=== PATIENT | female | born 1970 | race Caucasian/White ===

== ENCOUNTER 2016-04-16 12:47 | Emergency (ER) | payer MEDICARE, MEDICAID ==
--- NOTE | 2016-04-16 14:07 | Emergency Department Record ---
History of Present Illness - General Chief complaint: Flank Pain Stated complaint: L SIDE PAIN Time Seen by Provider: 04/16/16 13:59 Source: Patient Mode of Arrival: Ambulatory Limitations: No limitations - History of Present Illness Initial comments: 46 yo female presents with abdominal pain that is similar to her pancreatitis. She ran out of her chronic pain medication that typically covers her pain. She had a med fill on Mar 15 but ran out given the longer holiday weekend. No fever. She has some chronic left leg pain as well. She had her pain pump removed in December due to infection. She sees Dr Billy. Complaint: Other Onset/Timin -: Month(s) Radiation: Other Severity scale (1-10): 7 Quality: Aching Consistency: Constant Improves with: None Worsens with: None Patient : No Associated Symptoms: Nausea/vomiting - Related Data Home Medications Medication Instructions Recorded Confirmed Last Taken Albuterol Sulfate 2.5 mg IH QID PRN 08/27/13 04/16/16 07/11/14 Hydrocortisone 25 mg PO DAILY 04/12/14 04/16/16 04/16/16 Albuterol Sulfate [Ventolin Hfa] 2 puff IH Q6HR PRN 06/03/14 04/16/16 07/11/14 Duloxetine HCl [Cymbalta] 30 mg PO BID 06/03/14 04/16/16 04/16/16 Metoclopramide HCl [Reglan] 5 mg PO DAILY PRN 06/03/14 04/16/16 07/11/14 Ondansetron [Zofran Odt] 8 mg PO QID 06/03/14 04/16/16 07/11/14 Insulin Glargine,Hum.rec.anlog 25 unit SQ QHS 07/01/14 04/16/16 04/15/16 [Lantus] Insulin Lispro [Humalog] 5 units SQ WMEALS 09/14/15 04/16/16 04/15/16 Morphine Sulfate [Morphine Sulfate 60 mg PO BID 04/16/16 04/16/16 04/15/16 ER] Oxycodone HCl/Acetaminophen 1 tab PO Q6H PRN 04/16/16 04/16/16 04/15/16 [Percocet 10mg/325mg] Pregabalin [Lyrica] 150 mg PO BID 04/16/16 04/16/16 04/16/16 Previous Rx's Medication Instructions Recorded Montelukast Sodium [Singulair] 10 mg PO DAILY #30 tablet 04/13/14 Fluticasone/Salmeterol [Advair 1 each IH BID #1 disk.w.dev 05/14/14 500-50 Diskus] Allergies Allergy/AdvReac Type Severity Reaction Status Date / Time fentanyl [From Duragesic] Allergy Intermediate HEADACHE Verified 04/16/16 13:54 Travel Screening - Travel/Exposure Within Last 30 Days Have you traveled within the last 30 days?: No Review of Systems Constitutional: Denies: Chills, Fever, Malaise, Weakness Eyes: Denies: Eye discharge, Eye pain, Photophobia, Vision change ENT: Denies: Congestion, Throat pain Respiratory: Denies: Cough, Dyspnea, Hemoptysis, Stridor, Wheezes Cardiovascular: Denies: Chest pain, Palpitations, Syncope Endocrine: Denies: Fatigue Gastrointestinal: Reports: Abdominal pain, Nausea, Vomiting. Denies: Diarrhea Genitourinary: Denies: Dysuria Musculoskeletal: Denies: Arthralgia, Back pain, Myalgia Skin: Denies: Bruising, Change in color, Rash Neurological: Denies: Confusion, Headache Psychiatric: Denies: Anxiety Hematological/Lymphatic: Denies: Blood Clots, Easy bleeding, Easy bruising Past Medical History - SOCIAL HISTORY Smoking Status: Former smoker Alcohol Use: None Drug Use: None - RESPIRATORY Hx Respiratory Disorders: Yes Hx Asthma: Yes Hx Pulmonary Embolism: Yes - CARDIOVASCULAR Hx Cardio Disorders: Yes Hx Deep Vein Thrombosis: Yes (hx PE/DVT rt leg) Hx Edema: Yes (right leg swollen "most of the time") - NEURO Hx Neuro Disorders: Yes Hx Headaches: Yes (intermittent ROSS) - GI Hx GI Disorders: Yes Hx Nausea/Vomiting: Yes Hx Pancreatitis: Yes - Hx Genitourinary Disorders: No - ENDOCRINE Hx Endocrine Disorders: Yes Hx Diabetes: Yes - MUSCULOSKELETAL Hx Musculoskeletal Disorders: Yes Hx Arthritis: Yes - PSYCH Hx Psych Problems: Yes Hx Anxiety: Yes Hx Depression: Yes - HEMATOLOGY/ONCOLOGY Hx Hematology/Oncology Disorders: Yes Hx Blood Transfusions: Yes Family Medical History Any Significant Family History?: Yes Hx Cancer: Grandparents Hx Heart Disease: Grandparents Hx HTN: Mother Hx Seizures: Mother Physical Exam - General General Appearance: Alert, Oriented x3, Cooperative, No acute distress Limitations: No limitations - Head Head exam: Normal inspection - Eye Eye exam: Normal appearance, PERRL. negative: Conjunctival injection - ENT ENT exam: Normal exam Ear exam: Normal external inspection Nasal Exam: Normal inspection Mouth exam: Normal external inspection Teeth exam: Normal inspection Throat exam: Normal inspection - Neck Neck exam: Normal inspection, Full ROM. negative: Tenderness - Respiratory Respiratory exam: Normal lung sounds bilaterally. negative: Respiratory distress - Cardiovascular Cardiovascular Exam: Normal rhythm, Normal heart sounds, Tachycardia - GI/Abdominal GI/Abdominal exam: Soft, Tenderness (mild mid left abdomen) - Rectal Rectal exam: Deferred - exam: Deferred - Extremities Extremities exam: Normal inspection, Full ROM, Normal capillary refill. negative: Pedal edema, Tenderness - Back Back exam: Reports: Normal inspection, Full ROM. Denies: Muscle spasm, Rash noted, Tenderness - Neurological Neurological exam: Alert, Normal gait, Oriented X3 - Psychiatric Psychiatric exam: Normal affect, Normal mood - Skin Skin exam: Dry, Intact, Normal color, Warm Course Vital Signs 04/16/16 13:45 Temperature 98.7 F Pulse Rate 117 H Respiratory 20 Rate Blood Pressure 157/90 Pulse Ox 98 - Reevaluation(s) Reevaluation #1: The labs were reviewed No acute changes on the CBC Her glucose is elevated at 324 without changes in HCO3 or AG. DC to follow up with her PCP and pain specialist Lipase is normal 04/16/16 16:02 Medical Decision Making - Lab Data Result diagrams: 04/16/16 14:55 04/16/16 14:55 Disposition Disposition: Discharge Clinical Impression: Hyperglycemia without ketosis Chronic Pain Qualifiers: Chronic pain type: other chronic pain Qualified Code(s): G89.29 - Other chronic pain Disposition: Home, Self-Care Condition: (1) Good Instructions: Flank Pain (ED), Diabetic Hyperglycemia (ED) Additional Instructions: Call your doctor tomorrow to followup your pain medications Monitor your blood sugar 3-4 times daily Forms: Patient Portal Access Time of Disposition: 16:03
[2016-04-16] MEDS: HYDROMORPHONE HCL 1 MG/ML CPJ IM ONE (14:22)
[2016-04-16] MEDS: ONDANSETRON 4 MG ODT TABLET SL ONE (14:23)
[2016-04-16 15:03] LABS: BASO % 0.4 % (0-6); EOS % 2.3 % (0-6); GRAN % 55.1 % (47-80); HEMATOCRIT 44.7 % (35.0-47.0); HEMOGLOBIN 15.9 gm/dl (11.6-16.0); MEAN CELL VOLUME 81.3 fl (81-97); MEAN CORPUSCULAR HEMOGLOBIN 28.9 pg (27-33); MEAN CORPUSCULAR HGB CONC 35.6 g/dl (32-36); MEAN PLATELET VOLUME 10.8 fl (7.4-10.4); MONO % 8.2 % (0-9); PLATELET COUNT 149 K/uL (130-400); RED CELL DISTRIBUTION WIDTH 12.5 % (11.5-14.5); WHITE BLOOD COUNT W/O DIFF 4.9 K/uL (4.2-12.2)
[2016-04-16 15:13] LABS: ALB/GLOB RATIO 1.4 (1.1-1.8); ALBUMIN 4.2 gm/dL (3.5-5.0); ALKALINE PHOSPHATASE 90 U/L (38-126); ALT/SGPT 33 U/L (9-52); ANION GAP 10.8 (7-16); AST/SGOT 16 U/L (14-36); BILIRUBIN,TOTAL 1.04 mg/dL (0.2-1.3); BLOOD UREA NITROGEN 6 mg/dL (7-17); CARBON DIOXIDE 23.2 mmol/L (22-30); CREATININE 0.5 mg/dL (0.52-1.04); EST GLOMERULAR FILTRATION RATE > 60 ml/min; GLUCOSE,RANDOM 324 mg/dL (70-110); LIPASE 105 U/L (23-300); TOTAL PROTEIN 7.2 gm/dL (6.3-8.2)
== END 2016-04-16 16:19 | disposition home or self-care (01) ==
LOC: ER 12:47
DX: E11.65 Type 2 diabetes mellitus with hyperglycemia (principal); Z79.4 Long term (current) use of insulin; G89.29 Other chronic pain; R10.12 Left upper quadrant pain; R11.2 Nausea with vomiting, unspecified; Z86.718 Personal history of other venous thrombosis and embolism
CPT/HCPCS: 99283; 96372; 99284; 83690; 85025; 80053; J1170

== ENCOUNTER 2016-05-14 08:51 | Day surgery (SDC) | payer MEDICARE, MEDICAID ==
[~2016-05-14 08:51] MED LIST: VANCOMYCIN HCL 1,000 MG in 0.9 % SODIUM CHLORIDE 250ML 250 ML IVPB ONE
[2016-05-14 09:15] LABS: BASO % 0.5 % (0-6); EOS % 5.4 % (0-6); GRAN % 57.5 % (47-80); HEMATOCRIT 45.8 % (35.0-47.0); HEMOGLOBIN 15.2 gm/dl (11.6-16.0); LYMPH % 29.6 % (16-45); MEAN CELL VOLUME 85.1 fl (81-97); MEAN CORPUSCULAR HEMOGLOBIN 28.3 pg (27-33); MEAN CORPUSCULAR HGB CONC 33.2 g/dl (32-36); MEAN PLATELET VOLUME 10.6 fl (7.4-10.4); PLATELET COUNT 182 K/uL (130-400); RED BLOOD COUNT 5.38 M/uL (3.80-5.40); RED CELL DISTRIBUTION WIDTH 13.3 % (11.5-14.5); WHITE BLOOD COUNT W/O DIFF 4.3 K/uL (4.2-12.2)
[2016-05-14 09:24] LABS: ANION GAP 15.6 (7-16); BLOOD UREA NITROGEN 8 mg/dL (7-17); CARBON DIOXIDE 26.4 mmol/L (22-30); CREATININE 0.5 mg/dL (0.52-1.04); EST GLOMERULAR FILTRATION RATE > 60 ml/min; GLUCOSE,RANDOM 359 mg/dL (70-110)
[2016-05-14] MEDS ORDERED: HEPARIN SODIUM FLUSH 100 UNITS/ML SYR 5ML IVP ONE (15:03)
[2016-05-14] MEDS ORDERED: BUPIVACAINE 0.25% W/EPI MPF 30ML VIAL IVP ONE (15:03)
[2016-05-14] MEDS ORDERED: HYDROCODONE/APAP 5/325MG TABLET PO ONE (15:03)
[2016-05-14] MEDS ORDERED: ONDANSETRON HCL IV 4 MG/2 ML VIAL IVP ONE (15:10)
[2016-05-14] MEDS ORDERED: MIDAZOLAM HCL 2MG/2ML VIAL IV ONE (15:10)
[2016-05-14] MEDS ORDERED: DEXAMETHASONE 4 MG/ML 1ML VIAL IVP ONE (15:10)
[2016-05-14] MEDS ORDERED: PROPOFOL 10 MG/ML VIAL IV ONE (15:10)
[2016-05-14] MEDS ORDERED: FENTANYL PF 100MCG/2ML VIAL IV ONE (15:10)
[2016-05-14] MEDS ORDERED: LIDOCAINE 2% MDV (20MG/ML) 20ML VIAL IV ONE (15:10)
--- NOTE | 2016-05-16 17:08 | Operative Note ---
DATE OF SURGERY: 05/14/16 PREOPERATIVE DIAGNOSIS: POOR VASCULAR ACCESS. POSTOPERATIVE DIAGNOSIS: POOR VASCULAR ACCESS. OPERATION: REMOVAL AND REPLACEMENT OF [id number]. SURGEON: Geoff Magaña D.O. INDICATION: This patient is a 46-year-old female whose has had very poor vascular access. She has had longstanding indwelling [id number]. I have replaced multiple ones throughout the course of the last decade or so. She comes into the clinic with a malfunctioning [id number]. We did discuss changing this over a wire, risks, benefits, and alternatives. She has had ports placed on both sides and the current one is on her right. PROCEDURE: Therefore after consent was signed and questions answered, she was taken to the Operating Room and placed in the supine position. General anesthesia was administered per the Department of Anesthesia. The patient's arms were tucked to the side. Her breasts were taped down. A roll was placed between her shoulder blades. Adequate time-out was performed. A preoperative antibiotic was given. Her chest was prepped and draped in the usual sterile fashion. The area around the port was then anesthetized with a total of 5 mL of 0.25% Sensorcaine with Epinephrine. At this time, a 2.5 cm incision was made over the port. This was carried down to the capsular port. This was then freed up. A hemostat was then placed on the entry into the fistulous tract and the subclavian vein. The port was then cut and passed off the field. Through this, a guidewire was inserted and the old catheter was removed. At this time, I did measure the catheter compared to the old and fed this over a wire, however, this would not feed past her clavicle. There was extreme resistance to this and in fact when I removed the old catheter there was resistance as well. At this time, I did have to place a dilator over the wire to dilate that tract. The catheter was then fed over the wire without resistance. This was noted to be in adequate position. The wire was removed. At this time, a plastic cath was then placed and the port was assembled. This did aspirate and flush well without difficulty. This was then sutured to her pectoralis fascia. The skin was then closed with 4-0 Vicryl. Dermabond was placed. She was taken to the Recovery Room in satisfactory condition. FINDINGS AT THE TIME OF SURGERY: MALFUNCTIONING [id number] REPLACED ABOVE. FINAL CHEST X-RAY PENDING. Geoff Magaña D.O. Date & Time cc: Dr. Guido Billy JOB NUMBER: [id number] [facility]
--- NOTE | 2016-05-18 07:32 | RADIOLOGY REPORT ---
EXAM: SINGLE AP PORTABLE VIEW OF THE CHEST HISTORY: POOR PLACEMENT. TECHNIQUE: A single AP portable view of the chest was provided along with the comparison study dated 01/27/08. FINDINGS: The cardiac silhouette is magnified. The ling appear unremarkable. Vascular crowding is noted at the lung bases. There is no radiographic evidence of a focal infiltrate or pleural effusion. In the interval there has been the removal of the left subclavian anterior chest wall port catheter. In the interval there has been the placement of a right anterior chest wall subclavian catheter. The distal tip of the catheter is identified in the region of the superior vena cava. No pneumothorax is noted. IMPRESSION: INTERVAL REMOVAL OF LEFT SIDED PORT CATHETER. INTERVAL PLACEMENT OF RIGHT SIDED SUBCLAVIAN CENTRAL VENOUS CATHETER. THE DISTAL TIP OF THE CATHETER IS IDENTIFIED IN THE REGION OF THE SUPERIOR VENA CAVA. NO PNEUMOTHORAX IS NOTED. JOB NUMBER: [id number] [facility]
== END 2016-05-14 13:20 | disposition home or self-care (01) ==
LOC: SUR 08:51
PROVIDERS: ATTEND Surgery
DX: T82.594A Other mechanical complication of infusion catheter, initial encounter (principal); Z79.01 Long term (current) use of anticoagulants; E11.9 Type 2 diabetes mellitus without complications; Z79.4 Long term (current) use of insulin; E27.1 Primary adrenocortical insufficiency
CPT/HCPCS: 36561; 00532; 85025; 80048; 36416; 82948; 71010; 77001; J2405; J3370; J3010; J1642; J7050

== ENCOUNTER 2016-06-07 13:15 | Emergency (ER) | payer MEDICARE, MEDICAID ==
[2016-06-07] MEDS ORDERED: METOCLOPRAMIDE HCL 10 MG/2 ML VIAL IVP ONE (13:37)
[2016-06-07] MEDS ORDERED: DIPHENHYDRAMINE HCL IV 50 MG/ML VIAL IVP ONE (13:37)
--- NOTE | 2016-06-07 13:43 | Emergency Department Record ---
History of Present Illness - General Chief Complaint: Headache Migraine Stated Complaint: ABD PAIN, ROSS Time Seen by Provider: 06/07/16 13:37 Source: Patient Mode of Arrival: Ambulatory Limitations: No limitations - History of Present Illness Initial Comments: 46 yo female presents to ED with a CC of nausea, vomiting, abdominal pain, and headache symptoms. Patient seems most concerned about her abdominal pain symptoms that began 5 days ago, reports a history of chronic pancreatitis. Patient denies fevers, chills, or recent illness. MD Complaint: Headache, Other (abdominal pain) Onset/Timin -: Days(s) Onset Description: Gradual Severity scale (1-10): 7 Quality: Pulsatile Consistency: Constant Improves With: Nothing Worsens With: None Context: Other Associated Symptoms: Photophobia Treatments Prior to Arrival: Prescription analgesic - Related Data Home Medications Medication Instructions Recorded Confirmed Last Taken Albuterol Sulfate 2.5 mg IH QID PRN 08/27/13 06/07/16 06/07/16 Hydrocortisone 25 mg PO DAILY 04/12/14 06/07/16 06/07/16 Albuterol Sulfate [Ventolin Hfa] 2 puff IH Q6HR PRN 06/03/14 06/07/16 06/07/16 Duloxetine HCl [Cymbalta] 30 mg PO BID 06/03/14 06/07/16 06/07/16 Ondansetron [Zofran Odt] 8 mg PO QID 06/03/14 06/07/16 06/07/16 Insulin Glargine,Hum.rec.anlog 25 unit SQ QHS 07/01/14 06/07/16 06/07/16 [Lantus] Insulin Lispro [Humalog] 5 units SQ WMEALS 09/14/15 06/07/16 06/07/16 Morphine Sulfate [Morphine Sulfate 60 mg PO BID 04/16/16 06/07/16 06/07/16 ER] Oxycodone HCl/Acetaminophen 1 tab PO Q6H PRN 04/16/16 06/07/16 06/07/16 [Percocet 10mg/325mg] Pregabalin [Lyrica] 150 mg PO BID 04/16/16 06/07/16 06/07/16 Previous Rx's Medication Instructions Recorded Fluticasone/Salmeterol [Advair 1 each IH BID #1 disk.w.dev 05/14/14 500-50 Diskus] Allergies Allergy/AdvReac Type Severity Reaction Status Date / Time fentanyl [From Duragesic] Allergy Intermediate HEADACHE Verified 06/07/16 13:24 Travel Screening - Travel/Exposure Within Last 30 Days Have you traveled within the last 30 days?: No - Travel/Exposure Within Last Year Have you traveled outside the [place] in the last year?: No - Additonal Travel Details Have you been exposed to anyone with a communicable illness?: No - Travel Symptoms Symptom Screening: None Review of Systems Constitutional: Denies: Chills, Fever, Malaise, Night sweats Eyes: Denies: Eye discharge, Eye pain ENT: Denies: Congestion, Ear pain, Epistaxis Respiratory: Denies: Cough, Dyspnea Cardiovascular: Denies: Chest pain, Dyspnea on exertion, Palpitations Endocrine: Denies: Fatigue, Heat or cold intolerance Gastrointestinal: Reports: Abdominal pain, Nausea, Vomiting Genitourinary: Denies: Dysuria, Frequency, Hematuria Musculoskeletal: Denies: Arthralgia, Back pain, Gout, Joint swelling Skin: Denies: Bruising, Change in color Neurological: Reports: Headache. Denies: Abnormal gait, Confusion, Seizure Psychiatric: Denies: Anxiety Hematological/Lymphatic: Denies: Anemia, Blood Clots Past Medical History - SOCIAL HISTORY Smoking Status: Former smoker Alcohol Use: None Drug Use: None - RESPIRATORY Hx Respiratory Disorders: Yes Hx Asthma: Yes Hx Pulmonary Embolism: Yes Hx Sleep Apnea: Yes - CARDIOVASCULAR Hx Cardio Disorders: Yes Hx Deep Vein Thrombosis: Yes (hx PE/DVT rt leg) Hx Edema: Yes (both legs now(left worse)) Hx Hypertension: Yes (borderline) Hx Irregular Heartbeat: Yes (occas tachycardia (SVT)) Hx Palpitations: Yes Comment:: on Lovenox. Also sees Dr Quintanilla(heart dr in [place]) - NEURO Hx Neuro Disorders: Yes Hx Headaches: Yes (intermittent ROSS) Hx Neuropathy: Yes (feet) - GI Hx GI Disorders: Yes Hx Abdominal Pain: Yes (intermittent due to pancreatitis) Hx Nausea/Vomiting: Yes Hx Pancreatitis: Yes - Hx Genitourinary Disorders: No Comment:: had tubal ligation 2003 - ENDOCRINE Hx Endocrine Disorders: Yes Hx Diabetes: Yes (this AM FBS 302) Comment:: has addisons disease-takes Cortef 2 x day - MUSCULOSKELETAL Hx Musculoskeletal Disorders: Yes Hx Arthritis: Yes Comment:: increased back/hip pain since pain pump removed - PSYCH Hx Psych Problems: Yes Hx Anxiety: Yes Hx Depression: Yes - HEMATOLOGY/ONCOLOGY Hx Hematology/Oncology Disorders: Yes Hx Anemia: Yes Hx Clotting Problems: Yes (on Lovenox) Hx Blood Transfusions: Yes Family Medical History Any Significant Family History?: Yes Hx Cancer: Grandparents Hx Heart Disease: Grandparents Hx HTN: Mother Hx Seizures: Mother Physical Exam - General General Appearance: Alert, Oriented x3, Cooperative, No acute distress Limitations: No limitations - Head Head exam: Atraumatic, Normocephalic, Normal inspection Head exam detail: negative: Abrasion, Contusion, Dodd's sign, General tenderness, Hematoma, Laceration - Eye Eye exam: Normal appearance. negative: Conjunctival injection, Periorbital swelling, Periorbital tenderness, Scleral icterus - ENT Ear exam: negative: Auricular hematoma, Auricular trauma Nasal Exam: negative: Active bleeding, Discharge, Dried blood, Foreign body Mouth exam: negative: Drooling, Laceration, Muffled voice, Tongue elevation - Neck Neck exam: Normal inspection. negative: Meningismus, Tenderness - Respiratory Respiratory exam: Normal lung sounds bilaterally. negative: Rales, Respiratory distress, Rhonchi, Stridor - Cardiovascular Cardiovascular Exam: Regular rate, Normal rhythm, Normal heart sounds - GI/Abdominal GI/Abdominal exam: Soft, Tenderness (mild-moderate TTP LUQ on examination). negative: Rebound - Rectal Rectal exam: Deferred - exam: Deferred - Extremities Extremities exam: Other (numerous, scabbed lesions to the UE's bilaterally, few small areas to the lwoer extremities on examination). negative: Calf tenderness , Pedal edema, Tenderness - Back Back exam: Reports: Normal inspection. Denies: CVA tenderness (R), CVA tenderness (L) - Neurological Neurological exam: Alert, Normal gait, Oriented X3 - Psychiatric Psychiatric exam: Normal affect, Normal mood - Skin Skin exam: Other (lesions as described above) Course Vital Signs 06/07/16 13:27 Temperature 98.6 F Pulse Rate 94 H Respiratory 16 Rate Blood Pressure 160/105 Pulse Ox 96 - Reevaluation(s) Reevaluation #1: 06/07/16 14:24 Labs reviewed, glucose 398, lipase appears normal. Patient reports improvement in her headache symptoms and appears stable for discharge at this time. Medical Decision Making - Lab Data Result diagrams: 06/07/16 14:05 06/07/16 14:05 Disposition Disposition: Discharge Clinical Impression: Chronic abdominal pain Acute headache Qualifiers: Headache type: unspecified Intractability: not intractable Qualified Code(s): R51 - Headache Disposition: Home, Self-Care Condition: (2) Stable Instructions: Acute Headache (ED) Additional Instructions: Return to ED if your symptoms worsen or if you have any concerns. Follow-up with your family doctor in 1-3 days as directed. Forms: Patient Portal Access Time of Disposition: 14:25
[2016-06-07] MEDS ORDERED: 0.9 % SODIUM CHLORIDE 1000ML 1,000 ML IV SCH (13:45)
[2016-06-07 14:09] LABS: BASO % 0.8 % (0-6); EOS % 5.9 % (0-6); HEMATOCRIT 46.5 % (35.0-47.0); HEMOGLOBIN 15.7 gm/dl (11.6-16.0); LYMPH % 37.8 % (16-45); MEAN CELL VOLUME 84.2 fl (81-97); MEAN CORPUSCULAR HEMOGLOBIN 28.4 pg (27-33); MEAN CORPUSCULAR HGB CONC 33.8 g/dl (32-36); MEAN PLATELET VOLUME 10.8 fl (7.4-10.4); MONO % 9.5 % (0-9); PLATELET COUNT 123 K/uL (130-400); RED BLOOD COUNT 5.52 M/uL (3.80-5.40); RED CELL DISTRIBUTION WIDTH 14.7 % (11.5-14.5); WHITE BLOOD COUNT W/O DIFF 3.7 K/uL (4.2-12.2)
[2016-06-07 14:21] LABS: ALB/GLOB RATIO 1.2 (1.1-1.8); ALBUMIN 4.1 gm/dL (3.5-5.0); ALKALINE PHOSPHATASE 90 U/L (38-126); ALT/SGPT 33 U/L (9-52); ANION GAP 13.9 (7-16); AST/SGOT 22 U/L (14-36); BLOOD UREA NITROGEN 11 mg/dL (7-17); CARBON DIOXIDE 25.1 mmol/L (22-30); CREATININE 0.5 mg/dL (0.52-1.04); EST GLOMERULAR FILTRATION RATE > 60 ml/min; GLUCOSE,RANDOM 398 mg/dL (70-110); LIPASE 70 U/L (23-300); TOTAL PROTEIN 7.4 gm/dL (6.3-8.2)
== END 2016-06-07 15:04 | disposition home or self-care (01) ==
LOC: ER 13:15
DX: G89.29 Other chronic pain (principal); R10.12 Left upper quadrant pain; R51 Headache; R11.2 Nausea with vomiting, unspecified; E11.9 Type 2 diabetes mellitus without complications; Z79.4 Long term (current) use of insulin
CPT/HCPCS: 80053; 83690; 85025; 96361; 96374; 96375; 99284; J1200; J2765; J7030

== ENCOUNTER 2016-07-07 00:27 | Emergency (ER) | payer MEDICARE, MEDICAID ==
--- NOTE | 2016-07-07 00:48 | Emergency Department Record ---
History of Present Illness - General Chief complaint: Allergic Reaction Stated complaint: POSSIBLE INFECTION WHERE INFUSA PORT USE TO BE Time Seen by Provider: 07/07/16 00:41 Source: Patient Mode of Arrival: Ambulatory Limitations: No limitations - History of Present Illness Initial Comments: 46 yo female presents to ED with concerns for possible infection at her previous infusaport site. Patient reports that Dr. Magaña removed her infusaport on 06/26/16, reports she was probing her open wound with a q-tip and noted some "green drainage" which is now gone. Patient denies fevers, chills, or recent illness. Onset/Timin -: Days(s) Severity: Mild Treatment Prior to Arrival: None - Related Data Home Medications Medication Instructions Recorded Confirmed Last Taken Albuterol Sulfate 2.5 mg IH QID PRN 08/27/13 07/07/16 06/07/16 Hydrocortisone 25 mg PO DAILY 04/12/14 07/07/16 06/07/16 Albuterol Sulfate [Ventolin Hfa] 2 puff IH Q6HR PRN 06/03/14 07/07/16 06/07/16 Duloxetine HCl [Cymbalta] 30 mg PO BID 06/03/14 07/07/16 06/07/16 Ondansetron [Zofran Odt] 8 mg PO QID 06/03/14 07/07/16 06/07/16 Insulin Glargine,Hum.rec.anlog 25 unit SQ QHS 07/01/14 07/07/16 06/07/16 [Lantus] Insulin Lispro [Humalog] 5 units SQ WMEALS 09/14/15 07/07/16 06/07/16 Morphine Sulfate [Morphine Sulfate 60 mg PO BID 04/16/16 07/07/16 06/07/16 ER] Oxycodone HCl/Acetaminophen 1 tab PO Q6H PRN 04/16/16 07/07/16 06/07/16 [Percocet 10mg/325mg] Pregabalin [Lyrica] 150 mg PO BID 04/16/16 07/07/16 06/07/16 Previous Rx's Medication Instructions Recorded Fluticasone/Salmeterol [Advair 1 each IH BID #1 disk.w.dev 05/14/14 500-50 Diskus] Cephalexin [Keflex] 500 mg PO QID #28 cap 07/07/16 Allergies Allergy/AdvReac Type Severity Reaction Status Date / Time fentanyl [From Duragesic] Allergy Intermediate HEADACHE Verified 06/07/16 13:24 Review of Systems Constitutional: Reports: Malaise. Denies: Chills, Fever, Night sweats Eyes: Denies: Eye discharge, Eye pain ENT: Denies: Congestion, Ear pain, Epistaxis Respiratory: Denies: Cough, Dyspnea Cardiovascular: Denies: Chest pain, Dyspnea on exertion Endocrine: Denies: Fatigue, Heat or cold intolerance Gastrointestinal: Denies: Abdominal pain, Nausea, Vomiting Genitourinary: Denies: Incontinence, Retention Musculoskeletal: Denies: Arthralgia, Back pain, Gout, Joint swelling Skin: Reports: Other (possible wound infection). 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 Also sees Dr Quintanilla(heart dr in [place]) - NEURO Hx Neuro Disorders: Yes Hx Headaches: Yes (intermittent ROSS) Hx Neuropathy: Yes (feet) - GI Hx GI Disorders: Yes Hx Abdominal Pain: Yes (intermittent due to pancreatitis) Hx Nausea/Vomiting: Yes Hx Pancreatitis: Yes - Hx Genitourinary Disorders: No Comment:: had tubal ligation 2003 - ENDOCRINE Hx Endocrine Disorders: Yes Hx Diabetes: Yes (this AM FBS 302) Comment:: has addisons disease-takes Cortef 2 x day - MUSCULOSKELETAL Hx Musculoskeletal Disorders: Yes Hx Arthritis: Yes Comment:: increased back/hip pain since pain pump removed - PSYCH Hx Psych Problems: Yes Hx Anxiety: Yes Hx Depression: Yes - HEMATOLOGY/ONCOLOGY Hx Hematology/Oncology Disorders: Yes Hx Anemia: Yes Hx Clotting Problems: Yes (on Lovenox) Hx Blood Transfusions: Yes Family Medical History Hx Cancer: Grandparents Hx Heart Disease: Grandparents Hx HTN: Mother Hx Seizures: Mother Physical Exam - General General Appearance: Alert, Oriented x3, Cooperative, Anxious Limitations: No limitations - Head Head exam: Atraumatic, Normocephalic, Normal inspection Head exam detail: negative: Abrasion, Contusion, Dodd's sign, General tenderness, Hematoma, Laceration - Eye Eye exam: Normal appearance. negative: Conjunctival injection, Periorbital swelling, Periorbital tenderness, Scleral icterus - ENT Ear exam: negative: Auricular hematoma, Auricular trauma Nasal Exam: negative: Active bleeding, Discharge, Dried blood, Foreign body Mouth exam: negative: Drooling, Laceration, Muffled voice, Tongue elevation - Neck Neck exam: Normal inspection. negative: Meningismus, Tenderness - Respiratory Respiratory exam: Normal lung sounds bilaterally. negative: Rales, Respiratory distress, Rhonchi, Stridor - Cardiovascular Cardiovascular Exam: Normal rhythm, Normal heart sounds, Tachycardia - GI/Abdominal GI/Abdominal exam: Soft. negative: Rebound, Rigid, Tenderness - Rectal Rectal exam: Deferred - exam: Deferred - Extremities Extremities exam: Normal inspection. negative: Pedal edema, Tenderness - Back Back exam: Denies: CVA tenderness (R), CVA tenderness (L) - Neurological Neurological exam: Alert, Normal gait, Oriented X3 - Psychiatric Psychiatric exam: Anxious - Skin Skin exam: Normal color, Other (Patient has a 3.0 cm wound to the right upper chest wall present with surrounding irritation from recent dressing changes, no erythema or signs of infection, scar tissue is present around the wound, no drainage noted.). 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 Patient does have skin irritation in a square formation from recent dressing changes. Patient's pulse is 129 on examination. I discussed performing laboratory studies and administering IVFs to the patient with reassessment, patient declined stating "I hope I don't get septic and ". Patient does not want any further evaluation at this time and is declining further medical tests for further evaluation. Patient does report that her wound nurse will be coming to her home Saturday as well. Patient was given supplies to change her wound. Will discuss the patient's case with Dr. Magaña. Reevaluation #2: 07/07/16 01:05 Case was discussed with Dr. Magaña, will initiate Keflex and have the patient follow-up with her home wound nurse Saturday as scheduled. Reevaluation #3: 07/07/16 01:18 Upon discharge AMA, patient has changed her mind, states "I';m tired of making the decisions, whatever you reccommend". Will initiate IVFs and laboratory studies for further evaluation. Reevaluation #4: 07/07/16 01:51 Labs reviewed, Lactic acid 4.7, Glucose 523. 2nd Liter NS ordered along with 10 unites Insulin IV. Will repeat Lactic upon completion. Reevaluation #5: 07/07/16 03:41 Repeat labs were reviewed, glucose is down to 250, Lactic acid is down to 2.6 from 4.7. Patient appears stable for discharge on Keflex as directed. Medical Decision Making - Lab Data Result diagrams: 07/07/16 01:15 07/07/16 03:05 Disposition Disposition: Discharge Clinical Impression: Encounter for evaluation of wound, Hyperglycemia, Lactic acidosis Disposition: Against Medical Advice Condition: (2) Stable Instructions: Chronic Wound Care (ED) Additional Instructions: Return to ED if your symptoms worsen or if you have any concerns. Follow-up with your home wound nurse Saturday as scheduled, call Dr. Magaña for follow-up appointment next week. Keflex as directed. Prescriptions: Cephalexin [Keflex] 500 mg PO QID #28 cap Forms: Patient Portal Access Time of Disposition: 03:43
[2016-07-07 01:28] LABS: BASO % 0.5 % (0-6); EOS % 2.3 % (0-6); GRAN % 68.1 % (47-80); HEMATOCRIT 45.2 % (35.0-47.0); HEMOGLOBIN 15.7 gm/dl (11.6-16.0); LYMPH % 22.5 % (16-45); MEAN CELL VOLUME 85.4 fl (81-97); MEAN CORPUSCULAR HEMOGLOBIN 29.7 pg (27-33); MEAN CORPUSCULAR HGB CONC 34.7 g/dl (32-36); MEAN PLATELET VOLUME 10.9 fl (7.4-10.4); MONO % 6.6 % (0-9); PLATELET COUNT 198 K/uL (130-400); RED BLOOD COUNT 5.29 M/uL (3.80-5.40); RED CELL DISTRIBUTION WIDTH 13.6 % (11.5-14.5); WHITE BLOOD COUNT W/O DIFF 7.8 K/uL (4.2-12.2)
[2016-07-07] MEDS ORDERED: 0.9 % SODIUM CHLORIDE 1000ML 1,000 ML IV SCH ×2 (01:30→02:00)
[2016-07-07 01:42] LABS: LACTIC ACID 4.7 mmol/L (0.7-2.1)
[2016-07-07 01:47] LABS: ALB/GLOB RATIO 1.3 (1.1-1.8); ALBUMIN 4.1 gm/dL (3.5-5.0); BLOOD UREA NITROGEN 12 mg/dL (7-17); CREATININE 0.7 mg/dL (0.52-1.04); EST GLOMERULAR FILTRATION RATE > 60 ml/min; GLUCOSE,RANDOM 523 mg/dL (70-110); TOTAL PROTEIN 7.3 gm/dL (6.3-8.2)
[2016-07-07 01:48] LABS: ALKALINE PHOSPHATASE 108 U/L (38-126); ALT/SGPT 25 U/L (9-52); AST/SGOT 20 U/L (14-36); C-REACTIVE PROTEIN 1.4 mg/dL (0.0-0.9)
[2016-07-07] MEDS ORDERED: HUMULIN R 100 UNIT/ML VIAL IV ONE (01:51)
[2016-07-07] MEDS ORDERED: HUMULIN R 100 UNIT/ML VIAL SC ONE (01:51)
[2016-07-07] MEDS ORDERED: KETOROLAC 30 MG/ML VIAL IVP ONE (02:08)
[2016-07-07 03:30] LABS: LACTIC ACID 2.6 mmol/L (0.7-2.1)
[2016-07-07 03:32] LABS: BLOOD UREA NITROGEN 11 mg/dL (7-17); CREATININE 0.6 mg/dL (0.52-1.04); EST GLOMERULAR FILTRATION RATE > 60 ml/min; GLUCOSE,RANDOM 250 mg/dL (70-110); TOTAL PROTEIN 6.2 gm/dL (6.3-8.2)
[2016-07-07 03:33] LABS: ALB/GLOB RATIO 1.1 (1.1-1.8); ALBUMIN 3.2 gm/dL (3.5-5.0); ALKALINE PHOSPHATASE 88 U/L (38-126); ALT/SGPT 23 U/L (9-52); AST/SGOT 14 U/L (14-36)
== END 2016-07-07 03:58 | disposition home or self-care (01) ==
LOC: ER 00:27
DX: Z48.00 Encounter for change or removal of nonsurgical wound dressing (principal); E11.65 Type 2 diabetes mellitus with hyperglycemia; Z79.4 Long term (current) use of insulin; E87.2 Acidosis
CPT/HCPCS: 80053; 83605; 85025; 86140; 96374; 96375; 99284; J1885; J7030

== ENCOUNTER 2016-08-02 05:04 | Emergency (ER) | payer MEDICARE, MEDICAID ==
[2016-08-02] MEDS ORDERED: METHYLPREDNISOLONE PF 125MG/VIAL IVP ONE (05:25)
[2016-08-02 05:32] LABS: BASO % 1.4 % (0-6); EOS % 4.3 % (0-6); HEMATOCRIT 45.5 % (35.0-47.0); HEMOGLOBIN 15.4 gm/dl (11.6-16.0); LYMPH % 23.3 % (16-45); MEAN CELL VOLUME 84.9 fl (81-97); MEAN CORPUSCULAR HEMOGLOBIN 28.7 pg (27-33); MEAN CORPUSCULAR HGB CONC 33.8 g/dl (32-36); MEAN PLATELET VOLUME 11.2 fl (7.4-10.4); PLATELET COUNT 195 K/uL (130-400); RED BLOOD COUNT 5.36 M/uL (3.80-5.40); RED CELL DISTRIBUTION WIDTH 12.9 % (11.5-14.5); WHITE BLOOD COUNT W/O DIFF 5.1 K/uL (4.2-12.2)
[2016-08-02 05:43] LABS: ANION GAP 10.9 (7-16); BLOOD UREA NITROGEN 9 mg/dL (7-17); CARBON DIOXIDE 26.1 mmol/L (22-30); CREATININE 0.5 mg/dL (0.52-1.04); EST GLOMERULAR FILTRATION RATE > 60 ml/min
[2016-08-02] MEDS ORDERED: HUMULIN R 100 UNIT/ML VIAL SQ ONE (05:45)
[2016-08-02] MEDS ORDERED: HUMULIN R 100 UNIT/ML VIAL SC ONE (05:45)
[2016-08-02 05:46] LABS: INR 0.87; PARTIAL THROMBOPLASTIN TIME 25.9 SECONDS (24.5-39.1); PROTHROMBIN TIME (PATIENT) 9.8 SECONDS (9.5-12.1)
[2016-08-02 05:48] LABS: D-DIMER 0.66 mg/L FEU (0-0.59)
[2016-08-02 05:50] LABS: ARTERIAL BLD GAS O2 SATURATION 99.8 % (95-98); ARTERIAL BLOOD GAS PCO2 49.1 mmHg (35-48); ARTERIAL BLOOD GAS pH 7.34 (7.35-7.45); CARBOXYHEMOGLOBIN 0.9 % (0-1.5); TOTAL HEMOGLOBIN 15.7 g/dl (11.6-16)
[2016-08-02 05:51] LABS: ALLEN TEST PASS
--- NOTE | 2016-08-02 05:58 | Emergency Department Record ---
History of Present Illness - General Chief Complaint: Shortness of breath Stated Complaint: MANAV Time Seen by Provider: 08/02/16 05:07 Source: Patient, Family Mode of Arrival: Wheelchair Limitations: No limitations - History of Present Illness Initial Comments: pt was dxd with pneumonia yesterday. became much more sob and wheezing this am. Complaint: "Asthma attack", Cough, Shortness of breath Onset/Timin -: Hour(s) Severity: Severe Consistency: Getting worse Improves With: Nothing, Upright position Worsens With: Exertion Known History Of: Asthma, COPD, Diabetes, DVT, Recurrent pneumonia Context: Recent URI Associated Symptoms: Cough Treatments Prior to Arrival: None Treatment Prior to Arrival Comment:: "my insurance wont cover an inhaler" - Related Data Home Oxygen Therapy: No Home Medications Medication Instructions Recorded Confirmed Last Taken Hydrocortisone 10 mg PO ASDIR 04/12/14 08/02/16 06/07/16 Duloxetine HCl [Cymbalta] 60 mg PO BID 06/03/14 08/02/16 06/07/16 Insulin Glargine,Hum.rec.anlog 30 unit SQ QHS 07/01/14 08/02/16 06/07/16 [Lantus] Insulin Lispro [Humalog] 5 units SQ WMEALS 09/14/15 08/02/16 06/07/16 Morphine Sulfate [Morphine Sulfate 60 mg PO BID 04/16/16 08/02/16 06/07/16 ER] Oxycodone HCl/Acetaminophen 1 tab PO Q6H PRN 04/16/16 08/02/16 06/07/16 [Percocet 10mg/325mg] Pregabalin [Lyrica] 150 mg PO BID 04/16/16 08/02/16 06/07/16 Alprazolam [Xanax] 0.5 mg PO BID PRN 08/02/16 08/02/16 Unknown Enoxaparin Sodium [Lovenox] 120 mg SQ BID 08/02/16 08/02/16 Unknown Levofloxacin [Levaquin Tab] 500 mg PO ASDIR 08/02/16 08/02/16 Unknown Allergies Allergy/AdvReac Type Severity Reaction Status Date / Time fentanyl [From Duragesic] Allergy Intermediate HEADACHE Verified 06/07/16 13:24 Travel Screening - Travel/Exposure Within Last 30 Days Have you traveled within the last 30 days?: No - Travel/Exposure Within Last Year Have you traveled outside the [place] in the last year?: No - Additonal Travel Details Have you been exposed to anyone with a communicable illness?: No - Travel Symptoms Symptom Screening: None Review of Systems ROS unobtainable: Other (limited dueto critical state) Reviewed: No additional complaints except as noted below Constitutional: Reports: As per HPI. Denies: Chills, Fever, Malaise, Night sweats, Weakness, Weight change Eyes: Reports: As per HPI. Denies: Eye discharge, Eye pain, Photophobia, Vision change ENT: Reports: As per HPI. Denies: Congestion, Dental pain, Ear pain, Epistaxis , Hearing loss, Throat pain Respiratory: Reports: As per HPI. Denies: Cough, Dyspnea, Hemoptysis, Stridor, Wheezes Cardiovascular: Reports: As per HPI. Denies: Arrhythmia, Chest pain, Dyspnea on exertion, Edema, Murmurs, Orthopnea, Palpitations, Paroxysmal nocturnal dyspnea, Rheumatic Fever, Syncope Endocrine: Reports: As per HPI. Denies: Fatigue, Heat or cold intolerance, Polydipsia, Polyuria Gastrointestinal: Reports: As per HPI. Denies: Abdominal pain, Constipation, Diarrhea, Hematemesis, Hematochezia, Melena, Nausea, Vomiting Genitourinary: Reports: As per HPI. Denies: Abnormal menses, Discharge, Dyspareunia, Dysuria, Frequency, Hematuria, Incontinence, Retention, Urgency Musculoskeletal: Reports: As per HPI. Denies: Arthralgia, Back pain, Gout, Joint swelling, Myalgia, Neck pain Skin: Reports: As per HPI. Denies: Bruising, Change in color, Change in hair/ nails, Lesions, Pruritus, Rash Neurological: Reports: As per HPI. Denies: Abnormal gait, Confusion, Headache, Numbness, Paresthesias, Seizure, Tingling, Tremors, Vertigo, Weakness Psychiatric: Reports: As per HPI. Denies: Anxiety, Auditory hallucinations, Depression, Homicidal thoughts, Suicidal thoughts, Visual hallucinations Hematological/Lymphatic: Reports: As per HPI. Denies: Anemia, Blood Clots, Easy bleeding, Easy bruising, Swollen glands Past Medical History - SOCIAL HISTORY Smoking Status: Former smoker Alcohol Use: None Drug Use: None - RESPIRATORY Hx Respiratory Disorders: Yes Hx Asthma: Yes Hx Pulmonary Embolism: Yes Hx Sleep Apnea: Yes - CARDIOVASCULAR Hx Cardio Disorders: Yes Hx Deep Vein Thrombosis: Yes (hx PE/DVT rt leg) Hx Edema: Yes (both legs now(left worse)) Hx Hypertension: Yes (borderline) Hx Irregular Heartbeat: Yes (occas tachycardia (SVT)) Hx Palpitations: Yes Comment:: on Lovenox. Also sees Dr Quintanilla(heart dr in [place]) - NEURO Hx Neuro Disorders: Yes Hx Headaches: Yes (intermittent ROSS) Hx Neuropathy: Yes (feet) - GI Hx GI Disorders: Yes Hx Abdominal Pain: Yes (intermittent due to pancreatitis) Hx Nausea/Vomiting: Yes Hx Pancreatitis: Yes - Hx Genitourinary Disorders: No Comment:: had tubal ligation 2003 - ENDOCRINE Hx Endocrine Disorders: Yes Hx Diabetes: Yes (this AM FBS 302) Comment:: has addisons disease-takes Cortef 2 x day - MUSCULOSKELETAL Hx Musculoskeletal Disorders: Yes Hx Arthritis: Yes Comment:: increased back/hip pain since pain pump removed - PSYCH Hx Psych Problems: Yes Hx Anxiety: Yes Hx Depression: Yes - HEMATOLOGY/ONCOLOGY Hx Hematology/Oncology Disorders: Yes Hx Anemia: Yes Hx Clotting Problems: Yes (on Lovenox) Hx Blood Transfusions: Yes Family Medical History Any Significant Family History?: Yes Hx Cancer: Grandparents Hx Heart Disease: Grandparents Hx HTN: Mother Hx Seizures: Mother Physical Exam - General General Appearance: Alert, Oriented x3, Cooperative, Severe distress - Head Head exam: Normal inspection - Eye Eye exam: Normal appearance, PERRL, EOMI Pupils: Normal accommodation - ENT ENT exam: Normal exam, Mucous membranes dry, Normal external ear exam, Normal orophraynx Ear exam: Normal external inspection. negative: External canal tenderness Nasal Exam: Normal inspection. negative: Discharge, Sinus tenderness Mouth exam: Normal external inspection, Tongue normal Teeth exam: Normal inspection. negative: Dental caries Throat exam: Normal inspection. negative: Tonsillar erythema, Tonsillar exudate - Neck Neck exam: Normal inspection, Full ROM. negative: Tenderness - Respiratory Respiratory exam: Accessory muscle use, Decreased breath sounds, Respiratory distress, Wheezes - Cardiovascular Cardiovascular Exam: Normal rhythm, Normal heart sounds, Tachycardia - GI/Abdominal GI/Abdominal exam: Soft, Normal bowel sounds. negative: Tenderness - Rectal Rectal exam: Deferred - exam: Deferred - Extremities Extremities exam: Normal inspection, Full ROM, Normal capillary refill. negative: Tenderness - Back Back exam: Reports: Normal inspection, Full ROM. 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 ] Respiratory 52 H 52 H 40 H Rate Blood Pressure 143/118 Blood Pressure [Left Arm] Pulse Ox 98 93 L 93 L 08/02/16 08/02/16 08/02/16 05:30 05:34 05:38 Temperature Pulse Rate Pulse Rate [ 140 H 137 H 136 H Maintenance Helper Utility Engineer ] Respiratory 32 H 45 H 39 H Rate Blood Pressure Blood Pressure 129/115 97/77 [Left Arm] Pulse Ox 96 97 98 - Reevaluation(s) Reevaluation #1: 08/02/16 06:28 d/w [facility] Medical Decision Making - Lab Data Result diagrams: 08/02/16 05:10 08/02/16 05:10 Lab Results 08/02/16 08/02/16 08/02/16 Range/Units 05:10 05:10 05:10 WBC 5.1 (4.2-12.2) K/uL RBC 5.36 (3.80-5.40) M/uL Hgb 15.4 (11.6-16.0) gm/dl Hct 45.5 (35.0-47.0) % MCV 84.9 (81-97) fl MCH 28.7 (27-33) pg MCHC 33.8 (32-36) g/dl RDW 12.9 (11.5-14.5) % Plt Count 195 (130-400) K/uL MPV 11.2 H (7.4-10.4) fl Gran % 58.0 (47-80) % Lymphocytes % 23.3 (16-45) % Monocytes % 13.0 H (0-9) % Eosinophils % 4.3 (0-6) % Basophils % 1.4 (0-6) % PT 9.8 (9.5-12.1) SECONDS INR 0.87 APTT 25.90 (24.5-39.1) SECONDS D-Dimer 0.66 H (0-0.59) mg/L FEU Sodium 129 L (136-145) mmol/L Potassium 4.5 (3.5-5.1) mmol/L Chloride 92 L (98-107) mmol/L Carbon Dioxide 26.1 (22-30) mmol/L Anion Gap 10.9 (7-16) BUN 9 (7-17) mg/dL Creatinine 0.5 L (0.52-1.04) mg/dL Estimated GFR > 60 ml/min Random Glucose 604 H* (70-110) mg/dL Calcium 8.4 L (8.5-10.1) mg/dL 08/02/16 Range/Units 05:28 WBC (4.2-12.2) K/uL RBC (3.80-5.40) M/uL Hgb (11.6-16.0) gm/dl Hct (35.0-47.0) % MCV (81-97) fl MCH (27-33) pg MCHC (32-36) g/dl RDW (11.5-14.5) % Plt Count (130-400) K/uL MPV (7.4-10.4) fl Gran % (47-80) % Lymphocytes % (16-45) % Monocytes % (0-9) % Eosinophils % (0-6) % Basophils % (0-6) % PT Cancelled (9.5-12.1) SECONDS INR Cancelled APTT Cancelled (24.5-39.1) SECONDS D-Dimer (0-0.59) mg/L FEU Sodium (136-145) mmol/L Potassium (3.5-5.1) mmol/L Chloride (98-107) mmol/L Carbon Dioxide (22-30) mmol/L Anion Gap (7-16) BUN (7-17) mg/dL Creatinine (0.52-1.04) mg/dL Estimated GFR ml/min Random Glucose (70-110) mg/dL Calcium (8.5-10.1) mg/dL Critical Care Time Critical Care Time: Yes Total Critical Care Time: 90 Disposition Disposition: Transfer Clinical Impression: Hyperglycemia due to type 1 diabetes mellitus Respiratory failure Qualifiers: Chronicity: acute Respiratory failure complication: hypoxia Qualified Code(s): J96.01 - Acute respiratory failure with hypoxia Asthma exacerbation Qualifiers: Asthma severity: severe persistent Qualified Code(s): J45.51 - Severe persistent asthma with (acute) exacerbation Disposition: Acute Care Hospital Transfer Transfer To: [facility] Reason For Transfer: resp failure Accepting Physician: dr lofton Time Discussed w/Accepting Physician: 06:26 Forms: Patient Portal Access
[2016-08-02 05:59] LABS: GLUCOSE,RANDOM 604 mg/dL (70-110)
[2016-08-02 06:00] LABS: ACETONE,SERUM NEGATIVE (NEGATIVE)
[2016-08-02 06:03] LABS: CREATINE PHOSPHOKINASE 34 U/L (30-135)
[2016-08-02 06:17] LABS: CKMB < 0.2 ug/L (0-6); TROPONIN I < 0.012 ng/mL (0.00-0.034)
[2016-08-02] MEDS ORDERED: IPRATROPIUM/ALBUTEROL (0.5MG/3MG) NEB INH ONE ×2 (06:37→06:39)
[2016-08-02] MEDS ORDERED: ALBUTEROL SULFATE 0.5% 5 MG/ML BTL 20ML INH SCH (06:45)
== END 2016-08-02 07:05 | disposition short-term general hospital (02) ==
LOC: ER 05:04
DX: J96.01 Acute respiratory failure with hypoxia (principal); J45.51 Severe persistent asthma with (acute) exacerbation; E10.65 Type 1 diabetes mellitus with hyperglycemia; Z79.4 Long term (current) use of insulin; Z87.891 Personal history of nicotine dependence; Z86.718 Personal history of other venous thrombosis and embolism
CPT/HCPCS: 99291 ×2; 96374; 96372; 82550; 85025; 85730; 85610; 82375; 82553; 84484; 80048; 36416; 82009; 82948; 82803; 85379; 83880; 71010; 94640 ×2; 36600; 94660; 94644; J1815; J2930

== ENCOUNTER 2016-08-15 02:23 | Emergency (ER) | payer MEDICARE, MEDICAID ==
[2016-08-15] MEDS: IPRATROPIUM/ALBUTEROL (0.5MG/3MG) NEB INH ONE (02:25)
--- NOTE | 2016-08-15 02:38 | Emergency Department Record ---
History of Present Illness - General Chief Complaint: Shortness of breath Stated Complaint: MANAV Time Seen by Provider: 08/15/16 02:27 Source: Patient, Family Mode of Arrival: Ambulatory Limitations: No limitations - History of Present Illness Initial Comments: 46 yo female presents with shortness of breath that has progressed tonight. She has a history of COPD and asthma. She was recently seen in the [facility] ED and transferred to [facility] for acute respiratory distress. She states she was diagnosed with asthma and pneumonia. She has finished her antibiotics and tapered her steroids. She has a mildly productive cough. She has pain in the chest with cough and breathing. She is on Lovenox BID. She had a PE is 1999. She is not a smoker. No history of coronary stents. She is not on any home oxygen. PCP is Dr Billy She was admitted to [facility] on 08/02/16 with a diagnosis of asthma exacerbation and was discharged on 08/06/16. She was transferred initially to the ICU and quickly improved for transfer to the floor at [facility] without complication. She was discharged on Prednisone and Doxycycline for CAP. PMHx Linwood's, Anxiety, Asthma, Depression, DM, DVT 1999, PE 1999, HTN, MRSA 2011, Pancreatitis, former 10 year smoker 2PPD quit 1999 Complaint: Cough, Shortness of breath -: Days(s) (1) Severity: Moderate Consistency: Constant Improves With: Nothing Worsens With: Coughing Known History Of: Asthma, COPD Context: Recent illness Associated Symptoms: Chest pain, Cough, Sputum production Treatments Prior to Arrival: Bronchodilator, Other (steroids) - Related Data Home Medications Medication Instructions Recorded Confirmed Last Taken Hydrocortisone 10 mg PO ASDIR 04/12/14 08/02/16 06/07/16 Duloxetine HCl [Cymbalta] 60 mg PO BID 06/03/14 08/02/16 06/07/16 Insulin Glargine,Hum.rec.anlog 30 unit SQ QHS 07/01/14 08/02/16 06/07/16 [Lantus] Insulin Lispro [Humalog] 5 units SQ WMEALS 09/14/15 08/02/16 06/07/16 Morphine Sulfate [Morphine Sulfate 60 mg PO BID 04/16/16 08/02/16 06/07/16 ER] Oxycodone HCl/Acetaminophen 1 tab PO Q6H PRN 04/16/16 08/02/16 06/07/16 [Percocet 10mg/325mg] Pregabalin [Lyrica] 150 mg PO BID 04/16/16 08/02/16 06/07/16 Alprazolam [Xanax] 0.5 mg PO BID PRN 08/02/16 08/02/16 Unknown Enoxaparin Sodium [Lovenox] 120 mg SQ BID 08/02/16 08/02/16 Unknown Levofloxacin [Levaquin Tab] 500 mg PO ASDIR 08/02/16 08/02/16 Unknown Allergies Allergy/AdvReac Type Severity Reaction Status Date / Time fentanyl [From Duragesic] Allergy Intermediate HEADACHE Verified 06/07/16 13:24 Review of Systems Constitutional: Reports: Malaise, Weakness. Denies: Chills Eyes: Denies: Eye discharge, Eye pain, Photophobia ENT: Reports: Congestion Respiratory: Reports: Cough, Dyspnea, Wheezes Cardiovascular: Reports: Chest pain, Palpitations. Denies: Syncope Endocrine: Reports: Fatigue Gastrointestinal: Denies: Abdominal pain, Diarrhea, Nausea, Vomiting Genitourinary: Denies: Dysuria, Hematuria, Urgency Musculoskeletal: Denies: Arthralgia, Back pain, Joint swelling, Myalgia Skin: Denies: Bruising, Change in color, Rash Neurological: Denies: Headache, Numbness, Weakness Psychiatric: Denies: Anxiety Hematological/Lymphatic: Denies: Blood Clots, Easy bleeding, Easy bruising, Swollen glands Past Medical History - SOCIAL HISTORY Smoking Status: Former smoker Drug Use: None - RESPIRATORY Hx Respiratory Disorders: Yes Hx Asthma: Yes Hx Pulmonary Embolism: Yes Hx Sleep Apnea: Yes - CARDIOVASCULAR Hx Cardio Disorders: Yes Hx Deep Vein Thrombosis: Yes (hx PE/DVT rt leg) Hx Edema: Yes (both legs now(left worse)) Hx Hypertension: Yes (borderline) Hx Irregular Heartbeat: Yes (occas tachycardia (SVT)) Hx Palpitations: Yes Comment:: on Lovenox. Also sees Dr Quintanilla(heart dr in [place]) - NEURO Hx Neuro Disorders: Yes Hx Headaches: Yes (intermittent ROSS) Hx Neuropathy: Yes (feet) - GI Hx GI Disorders: Yes Hx Abdominal Pain: Yes (intermittent due to pancreatitis) Hx Nausea/Vomiting: Yes Hx Pancreatitis: Yes - Hx Genitourinary Disorders: No Comment:: had tubal ligation 2003 - ENDOCRINE Hx Endocrine Disorders: Yes Hx Diabetes: Yes (this AM FBS 302) Comment:: has addisons disease-takes Cortef 2 x day - MUSCULOSKELETAL Hx Musculoskeletal Disorders: Yes Hx Arthritis: Yes Comment:: increased back/hip pain since pain pump removed - PSYCH Hx Psych Problems: Yes Hx Anxiety: Yes Hx Depression: Yes - HEMATOLOGY/ONCOLOGY Hx Hematology/Oncology Disorders: Yes Hx Anemia: Yes Hx Clotting Problems: Yes (on Lovenox) Hx Blood Transfusions: Yes Family Medical History Hx Cancer: Grandparents Hx Heart Disease: Grandparents Hx HTN: Mother Hx Seizures: Mother Physical Exam - General General Appearance: Alert, Oriented x3, Cooperative, Mild distress, Anxious Limitations: No limitations - Head Head exam: Normal inspection - Eye Eye exam: Normal appearance, PERRL. negative: Conjunctival injection, Periorbital swelling - ENT ENT exam: Normal exam, Mucous membranes moist Ear exam: Normal external inspection Nasal Exam: Normal inspection Mouth exam: Normal external inspection Teeth exam: Normal inspection Throat exam: Normal inspection - Neck Neck exam: Normal inspection, Full ROM. negative: Tenderness - Respiratory Respiratory exam: Accessory muscle use, Decreased breath sounds, Prolonged expiratory, Rhonchi, Wheezes. negative: Respiratory distress (moderate work of breathing) - Cardiovascular Cardiovascular Exam: Tachycardia Peripheral Pulses: 2+: Radial (R), Radial (L) - GI/Abdominal GI/Abdominal exam: Soft - Rectal Rectal exam: Deferred - exam: Deferred - Extremities Extremities exam: Pedal edema - Back Back exam: Reports: Normal inspection, Full ROM. Denies: Muscle spasm, Rash noted, Tenderness - Neurological Neurological exam: Alert, Normal gait, Oriented X3. negative: Altered - Psychiatric Psychiatric exam: Anxious - Skin Skin exam: Dry, Normal color, Warm. negative: Erythema, Intact (scattered scabs on arms) Course - Reevaluation(s) Reevaluation #1: EKG 02:30 sinus tachycardia at 136, intervals Qtc 488, axis left, ST no acute changes, poor R wave progression. 08/15/16 02:41 Reevaluation #2: After the duoneb and albuterol treatment the patient is improved but still wheezing, tachycardia improved to 128, oxygen 92-93 on 2 LNC with some decreased work of breathing. She is alert and not confused. Lab called glucose is 619. 08/15/16 02:58 CXR reviewed. Limited due to body habitus, no significant change from prior. 08/15/16 03:08 08/15/16 03:10 Reevaluation #3: Troponin and BNP normal at 0.012 and 29 respectively. Given the intensity of treatment and complexity of medical history I recommend step down unit for admission with a facility with pulmonary medicine Given the recent DC from [facility] I will call [facility] to make arrangements. 08/15/16 03:19 Reevaluation #4: ABG reviewed pH 7.32 with PCO2 of 48 and PO2 of 79 with 96% saturation 08/15/16 03:27 Awaiting [facility] attending call back. Third albuterol treatment provided. Slowly improving but remains wheezy, tachycardic, with increased RR but does not appeared to be fatiguing. 08/15/16 03:35 Reevaluation #5: I SAILAJA Meredith and Dr Sharp of [facility] We discussed the benefit of transfer to [facility] with Pulmonary consultation, complexity of the patient medications, need for more intensive treatment that the patient floor at [facility] will offer. The patient is in agreement with transfer as well. The patient has prior hx of MRSA in 2011 so bed will not be available until mid morning likely Dr Meredith recommends ED to ED transfer. I SW Dr Morley of the ED and she accepts the patient for transfer ED to ED. 08/15/16 03:50 The patient's work of breathing continues to improve but still tachycardic and tachypneic with oxygen saturations remaining 92-94 on 2-3 LNC. She is stable for transfer. 08/15/16 03:55 08/15/16 04:02 08/15/16 04:07 08/15/16 04:09 Medical Decision Making - Lab Data Result diagrams: 08/15/16 02:50 08/15/16 02:50 Disposition Disposition: Transfer Clinical Impression: COPD (chronic obstructive pulmonary disease) with chronic bronchitis, Hyperglycemia, Hyponatremia Asthma exacerbation Qualifiers: Asthma severity: severe persistent Qualified Code(s): J45.51 - Severe persistent asthma with (acute) exacerbation Disposition: Acute Care Hospital Transfer Transfer To: [facility] Reason For Transfer: Respiratory Distress,Asthma exacerbation, Accepting Physician: Peyman Time Discussed w/Accepting Physician: 03:49 Condition: (3) Guarded Forms: Patient Portal Access Time of Disposition: :50
[2016-08-15] MEDS: ALBUTEROL SULFATE (0.083%) 2.5 MG/3 ML NEB INH ONE ×2 (02:40→03:25)
[2016-08-15] MEDS: METHYLPREDNISOLONE PF 125MG/VIAL IVP ONE (02:50)
[2016-08-15 02:55] LABS: BASO % 0.6 % (0-6); EOS % 3.4 % (0-6); GRAN % 59.1 % (47-80); HEMATOCRIT 46.1 % (35.0-47.0); HEMOGLOBIN 16.1 gm/dl (11.6-16.0); LYMPH % 31.5 % (16-45); MEAN CELL VOLUME 85.4 fl (81-97); MEAN CORPUSCULAR HEMOGLOBIN 29.8 pg (27-33); MEAN CORPUSCULAR HGB CONC 34.9 g/dl (32-36); MEAN PLATELET VOLUME 10.7 fl (7.4-10.4); MONO % 5.4 % (0-9); PLATELET COUNT 229 K/uL (130-400); RED CELL DISTRIBUTION WIDTH 12.7 % (11.5-14.5)
[2016-08-15 03:04] LABS: INR 0.9; PARTIAL THROMBOPLASTIN TIME 21.8 SECONDS (24.5-39.1); PROTHROMBIN TIME (PATIENT) 10.2 SECONDS (9.5-12.1)
[2016-08-15 03:05] LABS: ALB/GLOB RATIO 1.2 (1.1-1.8); ALBUMIN 4.1 gm/dL (3.5-5.0); ALKALINE PHOSPHATASE 150 U/L (38-126); ALT/SGPT 43 U/L (9-52); ANION GAP 12.5 (7-16); AST/SGOT 39 U/L (14-36); BILIRUBIN,TOTAL 0.76 mg/dL (0.2-1.3); BLOOD UREA NITROGEN 16 mg/dL (7-17); CARBON DIOXIDE 22.5 mmol/L (22-30); CREATINE PHOSPHOKINASE 54 U/L (30-135); CREATININE 0.7 mg/dL (0.52-1.04); EST GLOMERULAR FILTRATION RATE > 60 ml/min; TOTAL PROTEIN 7.4 gm/dL (6.3-8.2)
[2016-08-15 03:06] LABS: GLUCOSE,RANDOM 619 mg/dL (70-110)
[2016-08-15 03:18] LABS: CKMB 0.4 ug/L (0-6); TROPONIN I < 0.012 ng/mL (0.00-0.034)
[2016-08-15] MEDS: HUMULIN R 100 UNIT/ML VIAL SQ ONE (03:23)
[2016-08-15 03:24] LABS: ARTERIAL BLD GAS O2 SATURATION 96.1 % (95-98); ARTERIAL BLOOD GAS BASE EXCESS -2.4 mmol/L (-2 - 3); ARTERIAL BLOOD GAS HCO3 23.7 mmol/L (18-23); ARTERIAL BLOOD GAS pH 7.32 (7.35-7.45); CARBOXYHEMOGLOBIN 1.3 % (0-1.5); METHEMOGLOBIN 0.5 % (0.0-1.5); O2 HEMOGLOBIN 94.4 % vol (94-99); TOTAL HEMOGLOBIN 15.1 g/dl (11.6-16)
[2016-08-15] MEDS: ACETAMINOPHEN 1,000 MG in SODIUM CHLORIDE 1 BAG IVPB ONE (03:34)
== END 2016-08-15 04:33 | disposition short-term general hospital (02) ==
LOC: ER 02:23
DX: J44.1 Chronic obstructive pulmonary disease with (acute) exacerbation (principal); J45.51 Severe persistent asthma with (acute) exacerbation; E87.1 Hypo-osmolality and hyponatremia; I10 Essential (primary) hypertension; E11.65 Type 2 diabetes mellitus with hyperglycemia; Z79.4 Long term (current) use of insulin; Z87.891 Personal history of nicotine dependence; Z86.718 Personal history of other venous thrombosis and embolism
CPT/HCPCS: 36416; 36600; 71010; 80053; 82375; 82550; 82553; 82803; 82948; 83735; 83880; 84484; 85025; 85610; 85730; 93005; 93010; 94640; 96365; 96372; 96375; 99285; J2930; J7613

== ENCOUNTER 2016-11-30 14:34 | Emergency (ER) | payer MEDICARE, MEDICAID ==
--- NOTE | 2016-11-30 17:51 | Emergency Department Record ---
History of Present Illness - General Chief Complaint: Hypertension Stated Complaint: HYPERTENTON AND SORES UNDER ARM Time Seen by Provider: 11/30/16 16:18 Mode of Arrival: Ambulatory - History of Present Illness Initial Comments: left axilla pain and BP was slightly high. [facility] at [facility] ED 2 weeks ago and the left axillae was lanced and that feel better. visting nurse was worried about her BP and slightly confused which has cleared. -: Unknown Timing: Unsure Description: Difficulty walking Associated Symptoms: Fever/chills, Other - Nicole Coma Scale Eye Response: (4) Open spontaneously Motor Response: (6) Obeys commands Verbal Response: (5) Oriented [place] Total: 15 - Related Data Home Medications Medication Instructions Recorded Confirmed Last Taken Hydrocortisone 10 mg PO ASDIR 04/12/14 11/30/16 11/30/16 Duloxetine HCl [Cymbalta] 60 mg PO BID 06/03/14 11/30/16 11/30/16 Insulin Glargine,Hum.rec.anlog 40 unit SQ BID 07/01/14 11/30/16 11/30/16 [Lantus] Insulin Lispro [Humalog] 1 units SQ WMEALS 09/14/15 11/30/16 06/07/16 Morphine Sulfate [Morphine Sulfate 60 mg PO BID 04/16/16 11/30/16 11/30/16 ER] Oxycodone HCl/Acetaminophen 1 tab PO Q6H PRN 04/16/16 11/30/16 11/30/16 [Percocet 10mg/325mg] Pregabalin [Lyrica] 150 mg PO BID 04/16/16 11/30/16 11/30/16 Enoxaparin Sodium [Lovenox] 150 mg SQ BID 08/02/16 11/30/16 11/30/16 Diazepam [Valium] 5 mg PO Q8H 11/30/16 11/30/16 Unknown Fluticasone/Salmeterol [Advair 1 each IH BID 11/30/16 11/30/16 Unknown 500-50 Diskus] Ipratropium/Albuterol [Duoneb] 3 ml INH ASDIR 11/30/16 11/30/16 Unknown Lamotrigine 25 mg PO DAILY 11/30/16 11/30/16 Unknown Pantoprazole Sodium 40 mg PO DAILY 11/30/16 11/30/16 11/30/16 Trazodone HCl 150 mg PO ASDIR 11/30/16 11/30/16 Unknown Previous Rx's Medication Instructions Recorded Doxycycline Hyclate [Doxycycline] 100 mg PO BID #20 cap 11/30/16 Allergies Allergy/AdvReac Type Severity Reaction Status Date / Time fentanyl [From Duragesic] Allergy Intermediate HEADACHE Verified 11/30/16 15:38 Travel Screening - Travel/Exposure Within Last 30 Days Have you traveled within the last 30 days?: No Review of Systems Reviewed: No additional complaints except as noted below Constitutional: Reports: As per HPI. Denies: Chills, Fever, Malaise, Night sweats, Weakness, Weight change Eyes: Reports: As per HPI. Denies: Eye discharge, Eye pain, Photophobia, Vision change ENT: Reports: As per HPI. Denies: Congestion, Dental pain, Ear pain, Epistaxis , Hearing loss, Throat pain Respiratory: Reports: As per HPI. Denies: Cough, Dyspnea, Hemoptysis, Stridor, Wheezes Cardiovascular: Reports: As per HPI. Denies: Arrhythmia, Chest pain, Dyspnea on exertion, Edema, Murmurs, Orthopnea, Palpitations, Paroxysmal nocturnal dyspnea, Rheumatic Fever, Syncope Endocrine: Reports: As per HPI. Denies: Fatigue, Heat or cold intolerance, Polydipsia, Polyuria Gastrointestinal: Reports: As per HPI. Denies: Abdominal pain, Constipation, Diarrhea, Hematemesis, Hematochezia, Melena, Nausea, Vomiting Genitourinary: Reports: As per HPI. Denies: Abnormal menses, Discharge, Dyspareunia, Dysuria, Frequency, Hematuria, Incontinence, Retention, Urgency Musculoskeletal: Reports: As per HPI. Denies: Arthralgia, Back pain, Gout, Joint swelling, Myalgia, Neck pain Skin: Reports: As per HPI, Other (multiple skin lesions and the left axille has and inflamed lyph node). Denies: Bruising, Change in color, Change in hair/ nails, Lesions, Pruritus, Rash Neurological: Reports: As per HPI. Denies: Abnormal gait, Confusion, Headache, Numbness, Paresthesias, Seizure, Tingling, Tremors, Vertigo, Weakness Psychiatric: Reports: As per HPI. Denies: Anxiety, Auditory hallucinations, Depression, Homicidal thoughts, Suicidal thoughts, Visual hallucinations Hematological/Lymphatic: Reports: As per HPI. Denies: Anemia, Blood Clots, Easy bleeding, Easy bruising, Swollen glands Past Medical History - SOCIAL HISTORY Smoking Status: Former smoker Alcohol Use: None Drug Use: None - RESPIRATORY Hx Respiratory Disorders: Yes Hx Asthma: Yes Hx Pulmonary Embolism: Yes Hx Sleep Apnea: Yes - CARDIOVASCULAR Hx Cardio Disorders: Yes Hx Deep Vein Thrombosis: Yes (hx PE/DVT rt leg) Hx Edema: Yes Hx Hypertension: Yes Hx Irregular Heartbeat: Yes (occas tachycardia (SVT)) Hx Palpitations: Yes - NEURO Hx Neuro Disorders: Yes Hx Headaches: Yes (intermittent ROSS) Hx Neuropathy: Yes (feet) - GI Hx GI Disorders: Yes Hx Abdominal Pain: Yes Hx Nausea/Vomiting: Yes Hx Pancreatitis: Yes - Hx Genitourinary Disorders: No Comment:: had tubal ligation 2003 - ENDOCRINE Hx Endocrine Disorders: Yes Hx Diabetes: Yes Comment:: has addisons disease - MUSCULOSKELETAL Hx Musculoskeletal Disorders: Yes Hx Arthritis: Yes - PSYCH Hx Psych Problems: Yes Hx Anxiety: Yes Hx Depression: Yes - HEMATOLOGY/ONCOLOGY Hx Hematology/Oncology Disorders: Yes Hx Anemia: Yes Hx Clotting Problems: Yes Hx Blood Transfusions: Yes Family Medical History Any Significant Family History?: Yes Hx Cancer: Grandparents Hx Heart Disease: Grandparents Hx HTN: Mother Hx Seizures: Mother Physical Exam - General General Appearance: Alert, Oriented x3, Cooperative, No acute distress - Head Head exam: Normal inspection - Eye Eye exam: Normal appearance, PERRL Pupils: Normal accommodation - ENT ENT exam: Normal exam, Mucous membranes moist, Normal external ear exam, Normal orophraynx, TM's normal bilaterally Ear exam: Normal external inspection. negative: External canal tenderness Nasal Exam: Normal inspection. negative: Discharge, Sinus tenderness Mouth exam: Normal external inspection, Tongue normal Teeth exam: Normal inspection. negative: Dental caries Throat exam: Normal inspection. negative: Tonsillar erythema, Tonsillar exudate - Neck Neck exam: Normal inspection, Full ROM. negative: Tenderness - Respiratory Respiratory exam: Normal lung sounds bilaterally. negative: Respiratory distress - Cardiovascular Cardiovascular Exam: Regular rate, Normal rhythm, Normal heart sounds - GI/Abdominal GI/Abdominal exam: Soft, Normal bowel sounds. negative: Tenderness - Rectal Rectal exam: Deferred - exam: Deferred - Extremities Extremities exam: Normal inspection, Full ROM, Normal capillary refill. negative: Tenderness - Back Back exam: Reports: Normal inspection, Full ROM. Denies: Muscle spasm, Rash noted, Tenderness - Neurological Neurological exam: Alert, Normal gait, Oriented X3, Reflexes normal - Psychiatric Psychiatric exam: Normal affect, Normal mood - Skin Skin exam: Dry, Intact, Normal color, Warm Course Vital Signs 11/30/16 15:30 Temperature 98 F Pulse Rate [ 94 H Pulse Ox Probe] Respiratory 28 H Rate Blood Pressure 133/98 [Left Arm] Pulse Ox 91 L Disposition Clinical Impression: Furuncle Hypertension Qualifiers: Hypertension type: unspecified Qualified Code(s): I10 - Essential (primary) hypertension Disposition: Home, Self-Care Condition: (1) Good Instructions: Furunculosis and Carbunculosis (ED) Additional Instructions: follow up with family next week to check her BP start doxycline twice of day for the left axillae furuncle Prescriptions: Doxycycline Hyclate [Doxycycline] 100 mg PO BID #20 cap Forms: Patient Portal Access Time of Disposition: 18:21 Quality - Quality Measures Quality Measures: N/A - Blood Pressure Screening Does Patient Have Any of the Following: No Blood Pressure Classification: Hypertensive Reading Systolic Measurement: 133 Diastolic Measurement: 98 Screening for High Blood Pressure: < First Hypertensive BP, F/U Documented > [ G8950] First Hypertensive Follow-up Interventions: Referral to alternative/primary care provider.
[2016-11-30 18:16] LABS: URINE APPEARANCE CLEAR; URINE BILIRUBIN NEGATIVE (NEGATIVE); URINE BLOOD NEGATIVE (NEGATIVE); URINE COLOR YELLOW; URINE KETONE NEGATIVE (NEGATIVE); URINE LEUKOCYTE ESTERASE NEGATIVE (NEGATIVE); URINE NITRITE NEGATIVE (NEGATIVE); URINE PROTEIN NEGATIVE (NEGATIVE); URINE UROBILINOGEN 0.2 E.U./dL (0.20 - 1.00)
[2016-11-30] MEDS ORDERED: DOXYCYCLINE HYCLATE 100 MG CAPSULE PO ONE (18:32)
== END 2016-11-30 18:56 | disposition home or self-care (01) ==
LOC: ER 14:34
DX: L02.422 Furuncle of left axilla (principal); I10 Essential (primary) hypertension; R26.2 Difficulty in walking, not elsewhere classified; E11.9 Type 2 diabetes mellitus without complications; Z79.4 Long term (current) use of insulin; Z87.891 Personal history of nicotine dependence
CPT/HCPCS: 81003; 99283

== ENCOUNTER 2017-04-16 08:54 | Emergency (ER) | payer MEDICARE, MEDICAID ==
--- NOTE | 2017-04-16 10:05 | Emergency Department Record ---
History of Present Illness - General Chief complaint: ENT Stated complaint: RIGHT EAR SWOLLEN Time Seen by Provider: 04/16/17 09:38 Source: Patient Mode of Arrival: Ambulatory Limitations: No limitations - History of Present Illness Initial comments: pt has had pain in her r ear and new onset headaches for the last week that make her throw up. she has swelling around ear. complaint: Ear pain Onset/Timin -: Week(s) Location: R ear Severity scale (1-10): 7 Quality: Sharp, Stabbing Consistency: Constant Improves with: None Worsens with: None Associated Symptoms: Other - Related Data Home Medications Medication Instructions Recorded Confirmed Last Taken Albuterol Sulfate 0.083% [Neb] 3 ml NEB .EVERY 4-6 HOURS PRN 04/16/17 04/16/17 Unknown Alprazolam [Alprazolam] 0.5 mg PO BID PRN 04/16/17 04/16/17 Unknown Hydroxyzine HCl [Hydroxyzine HCl] 25 mg PO DAILY 04/16/17 04/16/17 Unknown Ondansetron [Zofran Odt] 4 mg PO Q8H 04/16/17 04/16/17 Unknown Previous Rx's Medication Instructions Recorded Clindamycin in 0.9 % Sod Chlor 600 mg IV BID #20 piggyback 04/16/17 [Clindamycin 600 mg/50 ml-Ns] Allergies Allergy/AdvReac Type Severity Reaction Status Date / Time fentanyl [From Duragesic] Allergy Intermediate HEADACHE Verified 11/30/16 15:38 Travel Screening - Travel/Exposure Within Last 30 Days Have you traveled within the last 30 days?: No Review of Systems Reviewed: No additional complaints except as noted below Constitutional: Reports: As per HPI. Denies: Chills, Fever, Malaise, Night sweats, Weakness, Weight change Eyes: Reports: As per HPI. Denies: Eye discharge, Eye pain, Photophobia, Vision change ENT: Reports: As per HPI. Denies: Congestion, Dental pain, Ear pain, Epistaxis , Hearing loss, Throat pain Respiratory: Reports: As per HPI. Denies: Cough, Dyspnea, Hemoptysis, Stridor, Wheezes Cardiovascular: Reports: As per HPI. Denies: Arrhythmia, Chest pain, Dyspnea on exertion, Edema, Murmurs, Orthopnea, Palpitations, Paroxysmal nocturnal dyspnea, Rheumatic Fever, Syncope Endocrine: Reports: As per HPI. Denies: Fatigue, Heat or cold intolerance, Polydipsia, Polyuria Gastrointestinal: Reports: As per HPI. Denies: Abdominal pain, Constipation, Diarrhea, Hematemesis, Hematochezia, Melena, Nausea, Vomiting Genitourinary: Reports: As per HPI. Denies: Abnormal menses, Discharge, Dyspareunia, Dysuria, Frequency, Hematuria, Incontinence, Retention, Urgency Musculoskeletal: Reports: As per HPI. Denies: Arthralgia, Back pain, Gout, Joint swelling, Myalgia, Neck pain Skin: Reports: As per HPI. Denies: Bruising, Change in color, Change in hair/ nails, Lesions, Pruritus, Rash Neurological: Reports: As per HPI. Denies: Abnormal gait, Confusion, Headache, Numbness, Paresthesias, Seizure, Tingling, Tremors, Vertigo, Weakness Psychiatric: Reports: As per HPI. Denies: Anxiety, Auditory hallucinations, Depression, Homicidal thoughts, Suicidal thoughts, Visual hallucinations Hematological/Lymphatic: Reports: As per HPI. Denies: Anemia, Blood Clots, Easy bleeding, Easy bruising, Swollen glands Past Medical History - SOCIAL HISTORY Smoking Status: Former smoker Alcohol Use: None Drug Use: None - RESPIRATORY Hx Respiratory Disorders: Yes Hx Asthma: Yes Hx COPD: Yes Hx Pulmonary Embolism: Yes Hx Sleep Apnea: Yes - CARDIOVASCULAR Hx Cardio Disorders: Yes Hx Deep Vein Thrombosis: Yes (hx PE/DVT rt leg) Hx Edema: Yes Hx Hypertension: Yes Hx Irregular Heartbeat: Yes (occas tachycardia (SVT)) Hx Palpitations: Yes Hx Vascular Disease: Yes - NEURO Hx Neuro Disorders: Yes Hx Headaches: Yes (intermittent ROSS) Hx Neuropathy: Yes (feet) Hx TIA: Yes (summer 2016) - GI Hx GI Disorders: Yes Hx Abdominal Pain: Yes Hx Nausea/Vomiting: Yes Hx Pancreatitis: Yes - Hx Genitourinary Disorders: No Comment:: had tubal ligation 2003 - ENDOCRINE Hx Endocrine Disorders: Yes Hx Diabetes: Yes Comment:: has addisons disease - MUSCULOSKELETAL Hx Musculoskeletal Disorders: Yes Hx Arthritis: Yes - PSYCH Hx Psych Problems: Yes Hx Anxiety: Yes Hx Depression: Yes - HEMATOLOGY/ONCOLOGY Hx Hematology/Oncology Disorders: Yes Hx Anemia: Yes Hx Clotting Problems: Yes Hx Blood Transfusions: Yes Family Medical History Any Significant Family History?: Yes Hx Cancer: Grandparents Hx Heart Disease: Grandparents Hx HTN: Mother Hx Seizures: Mother Physical Exam - General General Appearance: Alert, Oriented x3, Cooperative, Mild distress - Head Head exam: Normal inspection Head exam detail: General tenderness - Eye Eye exam: Normal appearance, PERRL, EOMI Pupils: Normal accommodation - ENT ENT exam: Normal exam, Mucous membranes moist, Normal orophraynx, TM's normal bilaterally, Other (erythema and swelling of r ear) Ear exam: Normal external inspection. negative: External canal tenderness Nasal Exam: Normal inspection. negative: Discharge, Sinus tenderness Mouth exam: Normal external inspection, Tongue normal Teeth exam: Normal inspection. negative: Dental caries Throat exam: Normal inspection. negative: Tonsillar erythema, Tonsillar exudate - Neck Neck exam: Normal inspection, Full ROM. negative: Tenderness - Respiratory Respiratory exam: Normal lung sounds bilaterally. negative: Respiratory distress - Cardiovascular Cardiovascular Exam: Normal rhythm, Normal heart sounds, Tachycardia - GI/Abdominal GI/Abdominal exam: Soft, Normal bowel sounds. negative: Tenderness - Rectal Rectal exam: Deferred - exam: Deferred - Extremities Extremities exam: Normal inspection, Full ROM, Normal capillary refill. negative: Tenderness - Back Back exam: Reports: Normal inspection, Full ROM. Denies: Muscle spasm, Rash noted, Tenderness - Neurological Neurological exam: Alert, CN II-XII intact, Normal gait, Oriented X3 - Psychiatric Psychiatric exam: Normal affect, Normal mood - Skin Skin exam: Dry, Intact, Normal color, Warm Course Vital Signs 04/16/17 09:31 Temperature 97.7 F Pulse Rate 121 H Respiratory 18 Rate Blood Pressure 135/101 Pulse Ox 95 Medical Decision Making - Lab Data Result diagrams: 04/16/17 10:35 Disposition Disposition: Discharge Clinical Impression: Cellulitis of ear Qualifiers: Laterality: right Qualified Code(s): H60.11 - Cellulitis of right external ear Disposition: Home, Self-Care Condition: (1) Good Instructions: Cellulitis (ED) Additional Instructions: recheck tomorrow by family doctor. warm soaks to ear 4 times a day. return sooner if worse Prescriptions: Clindamycin in 0.9 % Sod Chlor [Clindamycin 600 mg/50 ml-Ns] 600 mg IV BID #20 piggyback Forms: Patient Portal Access Quality - Quality Measures Quality Measures: N/A - Blood Pressure Screening Does Patient Have Any of the Following: No Blood Pressure Classification: Hypertensive Reading Systolic Measurement: 135 Diastolic Measurement: 101 Screening for High Blood Pressure: < First Hypertensive BP, F/U Documented > [ G8950] First Hypertensive Follow-up Interventions: Follow-up with rescreen GT 1 day and LT 4 weeks.
[2017-04-16 10:49] LABS: BASO % 0.6 % (0-6); EOS % 4.7 % (0-6); GRAN % 44.7 % (47-80); HEMATOCRIT 45.1 % (35.0-47.0); HEMOGLOBIN 14.6 gm/dl (11.6-16.0); MEAN CELL VOLUME 81.3 fl (81-97); MEAN CORPUSCULAR HEMOGLOBIN 26.3 pg (27-33); MEAN CORPUSCULAR HGB CONC 32.4 g/dl (32-36); MEAN PLATELET VOLUME 10.4 fl (7.4-10.4); PLATELET COUNT 165 K/uL (130-400); RED BLOOD COUNT 5.55 M/uL (3.80-5.40); RED CELL DISTRIBUTION WIDTH 15.1 % (11.5-14.5); WHITE BLOOD COUNT W/O DIFF 5.1 K/uL (4.2-12.2)
[2017-04-16] MEDS ORDERED: CLINDAMYCIN 600MG/50ML PREMIX 600 MG/50 ML BAG IVPB ONE (11:01)
--- NOTE | 2017-04-17 06:59 | CT SCAN REPORT ---
DATE: 04/16/2017 at 10:40 a.m. EXAM: EMERGENCY HEAD CT. HISTORY: New onset headaches on the right side of the head. Right-hand dominant. TECHNIQUE: Axial CT scan of the head was performed without intravenous contrast. COMPARISON: None. FINDINGS: No definite acute intracranial hemorrhage identified. No focal mass effect or midline shift apparent. No definite acute infarct or intracranial mass lesion is seen. Very small cyst or polyp along the medial wall of the left maxillary antrum. Mild deviation of the nasal septum to the right. If the patient's neurologic symptoms persist, a follow-up brain MRI may be useful for further evaluation if not contraindicated. IMPRESSION: 1. NO ACUTE INTRACRANIAL HEMORRHAGE OR FOCAL MASS EFFECT EVIDENT. 2. SMALL CYST OR POLYP ALONG THE MEDIAL WALL OF THE LEFT MAXILLARY ANTRUM. 3. SOME DEVIATION OF THE NASAL SEPTUM TO THE RIGHT. JOB NUMBER: [id number] MTDD
== END 2017-04-16 12:18 | disposition home or self-care (01) ==
LOC: ER 08:54
DX: H60.11 Cellulitis of right external ear (principal); R51 Headache; Z87.891 Personal history of nicotine dependence
CPT/HCPCS: 70450; 85025; 85651; 96374; 99284

== ENCOUNTER 2017-05-19 09:10 | Emergency (ER) | payer MEDICARE, MEDICAID ==
[2017-05-19] MEDS ORDERED: METHYLPREDNISOLONE PF 125MG/VIAL IVP ONE (09:36)
[2017-05-19] MEDS ORDERED: 0.9 % SODIUM CHLORIDE 1,000 ML BAG IV ONE (09:36)
[2017-05-19] MEDS ORDERED: DIPHENHYDRAMINE HCL IV 50 MG/ML VIAL IVP ONE (09:41)
[2017-05-19] MEDS ORDERED: HUMULIN R 100 UNIT/ML VIAL SQ ONE (09:42)
[2017-05-19] MEDS ORDERED: IPRATROPIUM/ALBUTEROL (0.5MG/3MG) NEB INH ONE (10:16)
--- NOTE | 2017-05-19 10:18 | Emergency Department Record ---
History of Present Illness - General Chief complaint: Allergic Reaction Stated complaint: ALLERGIC REACTION TO PORT Time Seen by Provider: 05/19/17 09:24 Source: Patient Mode of Arrival: Ambulatory Limitations: No limitations - History of Present Illness Initial Comments: pt has a rash on arms and legs that she was told by surgeon might be an allergy to her port. the rash itches. pt has been taking benadryl . pt feels like her asthma is flaring Complaint: Allergic reaction Onset/Timin -: Week(s) Exposure: Other Symptoms: Itching, Nausea, Vomiting Treatment Prior to Arrival: Benadryl Previous Allergy History: Intubation - Related Data Allergies Allergy/AdvReac Type Severity Reaction Status Date / Time fentanyl [From Duragesic] Allergy Intermediate HEADACHE Verified 05/19/17 09:30 Travel Screening - Travel/Exposure Within Last 30 Days Have you traveled within the last 30 days?: No - Travel/Exposure Within Last Year Have you traveled outside the [place] in the last year?: No - Additonal Travel Details Have you been exposed to anyone with a communicable illness?: No - Travel Symptoms Symptom Screening: None Review of Systems Reviewed: No additional complaints except as noted below Constitutional: Reports: As per HPI. Denies: Chills, Fever, Malaise, Night sweats, Weakness, Weight change Eyes: Reports: As per HPI. Denies: Eye discharge, Eye pain, Photophobia, Vision change ENT: Reports: As per HPI. Denies: Congestion, Dental pain, Ear pain, Epistaxis , Hearing loss, Throat pain Respiratory: Reports: As per HPI, Dyspnea. Denies: Cough, Hemoptysis, Stridor, Wheezes Cardiovascular: Reports: As per HPI. Denies: Arrhythmia, Chest pain, Dyspnea on exertion, Edema, Murmurs, Orthopnea, Palpitations, Paroxysmal nocturnal dyspnea, Rheumatic Fever, Syncope Endocrine: Reports: As per HPI. Denies: Fatigue, Heat or cold intolerance, Polydipsia, Polyuria Gastrointestinal: Reports: As per HPI. Denies: Abdominal pain, Constipation, Diarrhea, Hematemesis, Hematochezia, Melena, Nausea, Vomiting Genitourinary: Reports: As per HPI. Denies: Abnormal menses, Discharge, Dyspareunia, Dysuria, Frequency, Hematuria, Incontinence, Retention, Urgency Musculoskeletal: Reports: As per HPI. Denies: Arthralgia, Back pain, Gout, Joint swelling, Myalgia, Neck pain Skin: Reports: As per HPI, Rash. Denies: Bruising, Change in color, Change in hair/nails, Lesions, Pruritus Neurological: Reports: As per HPI. Denies: Abnormal gait, Confusion, Headache, Numbness, Paresthesias, Seizure, Tingling, Tremors, Vertigo, Weakness Psychiatric: Reports: As per HPI. Denies: Anxiety, Auditory hallucinations, Depression, Homicidal thoughts, Suicidal thoughts, Visual hallucinations Hematological/Lymphatic: Reports: As per HPI. Denies: Anemia, Blood Clots, Easy bleeding, Easy bruising, Swollen glands Past Medical History - SOCIAL HISTORY Smoking Status: Former smoker Alcohol Use: None Drug Use: None - RESPIRATORY Hx Respiratory Disorders: Yes Hx Asthma: Yes Hx COPD: Yes Hx Pulmonary Embolism: Yes Hx Sleep Apnea: Yes - CARDIOVASCULAR Hx Cardio Disorders: Yes Hx Deep Vein Thrombosis: Yes (hx PE/DVT rt leg) Hx Edema: Yes Hx Hypertension: Yes Hx Irregular Heartbeat: Yes (occas tachycardia (SVT)) Hx Palpitations: Yes Hx Vascular Disease: Yes - NEURO Hx Neuro Disorders: Yes Hx Headaches: Yes (intermittent ROSS) Hx Neuropathy: Yes (feet) Hx TIA: Yes (summer 2016) - GI Hx GI Disorders: Yes Hx Abdominal Pain: Yes Hx Nausea/Vomiting: Yes Hx Pancreatitis: Yes - Hx Genitourinary Disorders: No Comment:: had tubal ligation 2003 - ENDOCRINE Hx Endocrine Disorders: Yes Hx Diabetes: Yes Comment:: has addisons disease - MUSCULOSKELETAL Hx Musculoskeletal Disorders: Yes Hx Arthritis: Yes - PSYCH Hx Psych Problems: Yes Hx Anxiety: Yes Hx Depression: Yes - HEMATOLOGY/ONCOLOGY Hx Hematology/Oncology Disorders: Yes Hx Anemia: Yes Hx Clotting Problems: Yes Hx Blood Transfusions: Yes Family Medical History Any Significant Family History?: No Hx Cancer: Grandparents Hx Heart Disease: Grandparents Hx HTN: Mother Hx Seizures: Mother Physical Exam - General General Appearance: Alert, Oriented x3, Cooperative, Mild distress - Head Head exam: Normal inspection - Eye Eye exam: Normal appearance, PERRL, EOMI Pupils: Normal accommodation - ENT ENT exam: Normal exam, Mucous membranes moist, Normal external ear exam, Normal orophraynx, TM's normal bilaterally Ear exam: Normal external inspection. negative: External canal tenderness Nasal Exam: Normal inspection. negative: Discharge, Sinus tenderness Mouth exam: Normal external inspection, Tongue normal Teeth exam: Normal inspection. negative: Dental caries Throat exam: Normal inspection. negative: Tonsillar erythema, Tonsillar exudate - Neck Neck exam: Normal inspection, Full ROM. negative: Tenderness - Respiratory Respiratory exam: Decreased breath sounds. negative: Respiratory distress - Cardiovascular Cardiovascular Exam: Normal rhythm, Normal heart sounds, Tachycardia - GI/Abdominal GI/Abdominal exam: Soft, Normal bowel sounds. negative: Tenderness - Rectal Rectal exam: Deferred - exam: Deferred - Extremities Extremities exam: Normal inspection, Full ROM, Normal capillary refill. negative: Tenderness - Back Back exam: Reports: Normal inspection, Full ROM. Denies: Muscle spasm, Rash noted, Tenderness - Neurological Neurological exam: Alert, CN II-XII intact, Normal gait, Oriented X3 - Psychiatric Psychiatric exam: Normal affect, Normal mood - Skin Skin exam: Dry, Intact, Normal color, Rash, Warm Distribution of rash: Back, RUE, LUE, RLE, LLE Description of rash: Erythematous, Macular, Papular Course Vital Signs 05/19/17 09:16 Temperature 98.4 F Pulse Rate 130 H Respiratory 22 Rate Blood Pressure 141/95 Pulse Ox 95 Medical Decision Making - Lab Data Result diagrams: 05/19/17 09:25 05/19/17 09:25 Lab Results 05/19/17 Range/Units 09:30 POC Glucose 401 H (70-110) mg/dL Disposition Disposition: Discharge Clinical Impression: Rash Asthma Qualifiers: Asthma severity: mild Asthma persistence: intermittent Asthma complication type : uncomplicated Qualified Code(s): J45.20 - Mild intermittent asthma, uncomplicated Hyperglycemia due to type 2 diabetes mellitus Qualifiers: Diabetes mellitus terminal clerk insulin use: with prison use Qualified Code(s): E11.65 - Type 2 diabetes mellitus with hyperglycemia; Z79.4 - custodial (current ) use of insulin; Z79.4 - terminologist (current) use of insulin; Z79.4 - terminologist (current) use of insulin; Z79.4 - custodial (current) use of insulin Disposition: Home, Self-Care Condition: (1) Good Instructions: Acute Rash (ED), Dermatitis (ED), Diabetic Hyperglycemia (ED), Asthma (ED) Additional Instructions: follow up with family doctor and with dr barbosa. return sooner if worse. continue benadryl as needed. monitor blood sugars cloely Forms: Patient Portal Access Quality - Quality Measures Quality Measures: N/A - Blood Pressure Screening Does Patient Have Any of the Following: No Blood Pressure Classification: Hypertensive Reading Systolic Measurement: 141 Diastolic Measurement: 95 Screening for High Blood Pressure: < First Hypertensive BP, F/U Documented > [ G8950] First Hypertensive Follow-up Interventions: Follow-up with rescreen GT 1 day and LT 4 weeks.
[2017-05-19 10:42] LABS: BASO % 0.6 % (0-6); EOS % 8.8 % (0-6); GRAN % 42.6 % (47-80); HEMATOCRIT 45.7 % (35.0-47.0); HEMOGLOBIN 15.6 gm/dl (11.6-16.0); LYMPH % 34.4 % (16-45); MEAN CELL VOLUME 80.6 fl (81-97); MEAN CORPUSCULAR HEMOGLOBIN 27.5 pg (27-33); MEAN CORPUSCULAR HGB CONC 34.1 g/dl (32-36); MEAN PLATELET VOLUME 11.3 fl (7.4-10.4); MONO % 13.6 % (0-9); PLATELET COUNT 172 K/uL (130-400); RED BLOOD COUNT 5.67 M/uL (3.80-5.40); RED CELL DISTRIBUTION WIDTH 14.8 % (11.5-14.5); WHITE BLOOD COUNT W/O DIFF 5.1 K/uL (4.2-12.2)
[2017-05-19 10:45] LABS: URINE APPEARANCE CLEAR; URINE BILIRUBIN NEGATIVE (NEGATIVE); URINE BLOOD NEGATIVE (NEGATIVE); URINE COLOR YELLOW; URINE KETONE NEGATIVE (NEGATIVE); URINE LEUKOCYTE ESTERASE NEGATIVE (NEGATIVE); URINE NITRITE NEGATIVE (NEGATIVE); URINE PROTEIN NEGATIVE (NEGATIVE); URINE UROBILINOGEN 0.2 E.U./dL (0.20 - 1.00)
[2017-05-19 10:55] LABS: BLOOD UREA NITROGEN 7 mg/dL (6-20); CREATININE 0.5 mg/dL (0.5-0.9); EST GLOMERULAR FILTRATION RATE > 60 mL/min
[2017-05-19 10:58] LABS: GLUCOSE,RANDOM 417 mg/dL (74-109)
--- NOTE | 2017-05-20 07:29 | RADIOLOGY REPORT ---
EXAM: CHEST, TWO VIEWS HISTORY: CHEST PAIN. TECHNIQUE: Frontal and lateral views of the chest were obtained. Comparison: Prior chest from 05/12/14. FINDINGS: The heart size is stable. [id number] catheter in place. Elevation of the right hemidiaphragm, as before. No pneumothorax. The lungs are clear. IMPRESSION: NO ACUTE CARDIOPULMONARY PROCESS. JOB NUMBER: [id number] MTDD
== END 2017-05-19 12:10 | disposition home or self-care (01) ==
LOC: ER 09:10
DX: J45.20 Mild intermittent asthma, uncomplicated (principal); E11.65 Type 2 diabetes mellitus with hyperglycemia; R21 Rash and other nonspecific skin eruption; R11.2 Nausea with vomiting, unspecified; R07.9 Chest pain, unspecified; J44.9 Chronic obstructive pulmonary disease, unspecified; R51 Headache; I10 Essential (primary) hypertension; Z86.718 Personal history of other venous thrombosis and embolism; Z79.4 Long term (current) use of insulin; Z87.891 Personal history of nicotine dependence
CPT/HCPCS: 36416; 71046; 80048; 81003; 82009; 82800; 82948; 85025; 94640; 96372; 96374; 96375; 99284; J1200; J2930; J7030

== ENCOUNTER 2017-07-24 20:49 | Inpatient (IN) | payer MEDICAID, MEDICARE ==
[2017-07-24] MEDS ORDERED: 0.9 % SODIUM CHLORIDE 1,000 ML BAG IV ONE (21:39)
[2017-07-24] MEDS ORDERED: ONDANSETRON HCL IV 4 MG/2 ML VIAL IVP ONE (21:39)
--- NOTE | 2017-07-24 21:45 | Emergency Department Record ---
History of Present Illness - General Chief complaint: Hypergylcemia Stated complaint: HIGH BLOOD SUGAR,DIZINESS Time Seen by Provider: 07/24/17 21:35 Source: Patient Mode of Arrival: Ambulatory Limitations: No limitations - History of Present Illness Initial comments: 47 yo female presents with elevated blood sugar today. She reports she had outpatient labs performed. Her PCP called her and informed her her blood sugar was elevated. She other states she has multiple chronic medical issues that seem at there baseline. She has COPD. No changes in her breathing. She had an infected infusaport removed a month ago. She reports no complications with the healing. She has chronic abdominal pain that is unchanged. She states her daily normal blood sugar long term care administrator is 300 and rarely less. The patient has a history of [place]'s, DM, PE, COPD/Asthma, IVC filter. PCP is Dr Billy in [place] Onset/Timin -: Days(s) Location: Generalized Severity: Mild Consistency: Constant Improves with: None Worsens with: None Associated Symptoms: Denies other symptoms - Nicole Coma Scale Eye Response: (4) Open spontaneously Motor Response: (6) Obeys commands Verbal Response: (5) Oriented [place] Total: 15 - Related Data Allergies Allergy/AdvReac Type Severity Reaction Status Date / Time No Known Drug Allergies Allergy Verified 07/24/17 21:12 Travel Screening - Travel/Exposure Within Last 30 Days Have you traveled within the last 30 days?: No - Travel/Exposure Within Last Year Have you traveled outside the [place] in the last year?: No - Additonal Travel Details Have you been exposed to anyone with a communicable illness?: No - Travel Symptoms Symptom Screening: None Review of Systems Constitutional: Denies: Chills, Fever, Malaise, Weakness Eyes: Denies: Eye discharge ENT: Denies: Congestion, Throat pain Respiratory: Denies: Cough Cardiovascular: Denies: Chest pain, Palpitations, Syncope Endocrine: Denies: Fatigue, Polydipsia, Polyuria Gastrointestinal: Reports: Abdominal pain (chronic). Denies: Diarrhea, Nausea, Vomiting Genitourinary: Denies: Dysuria Musculoskeletal: Denies: Arthralgia, Back pain, Joint swelling, Myalgia Skin: Reports: Rash. Denies: Bruising, Change in color Neurological: Denies: Confusion, Headache, Numbness, Weakness Psychiatric: Denies: Anxiety Hematological/Lymphatic: Denies: Blood Clots, Easy bleeding, Easy bruising, Swollen glands Past Medical History - SOCIAL HISTORY Smoking Status: Former smoker Alcohol Use: None Drug Use: None - RESPIRATORY Hx Respiratory Disorders: Yes Hx Asthma: Yes Hx COPD: Yes Hx Pulmonary Embolism: Yes Hx Sleep Apnea: Yes - CARDIOVASCULAR Hx Cardio Disorders: Yes Hx Deep Vein Thrombosis: Yes (hx PE/DVT rt leg) Hx Edema: Yes Hx Hypertension: Yes Hx Irregular Heartbeat: Yes (occas tachycardia (SVT)) Hx Palpitations: Yes Hx Vascular Disease: Yes - NEURO Hx Neuro Disorders: Yes Hx Headaches: Yes (intermittent ROSS) Hx Neuropathy: Yes (feet) Hx TIA: Yes (summer 2016) - GI Hx GI Disorders: Yes Hx Abdominal Pain: Yes Hx Nausea/Vomiting: Yes Hx Pancreatitis: Yes - Hx Genitourinary Disorders: No Comment:: had tubal ligation 2003 - ENDOCRINE Hx Endocrine Disorders: Yes Hx Diabetes: Yes Comment:: has addisons disease - MUSCULOSKELETAL Hx Musculoskeletal Disorders: Yes Hx Arthritis: Yes - PSYCH Hx Psych Problems: Yes Hx Anxiety: Yes Hx Depression: Yes - HEMATOLOGY/ONCOLOGY Hx Hematology/Oncology Disorders: Yes Hx Anemia: Yes Hx Clotting Problems: Yes Hx Blood Transfusions: Yes Family Medical History Any Significant Family History?: Yes Hx Cancer: Grandparents Hx Heart Disease: Grandparents Hx HTN: Mother Hx Seizures: Mother Physical Exam - General General Appearance: Alert, Oriented x3, Cooperative, No acute distress Limitations: No limitations - Head Head exam: Normal inspection - Eye Eye exam: Normal appearance, PERRL. negative: Conjunctival injection, Scleral icterus - ENT ENT exam: Normal exam Ear exam: Normal external inspection Nasal Exam: Normal inspection Mouth exam: Normal external inspection - Neck Neck exam: Normal inspection, Full ROM. negative: Tenderness - Respiratory Respiratory exam: Normal lung sounds bilaterally. negative: Accessory muscle use, Decreased breath sounds, Respiratory distress, Rhonchi, Stridor, Wheezes - Cardiovascular Cardiovascular Exam: Normal rhythm, Normal heart sounds, Tachycardia - GI/Abdominal GI/Abdominal exam: Soft. negative: Tenderness - Rectal Rectal exam: Deferred - exam: Deferred - Extremities Extremities exam: Normal inspection - Back Back exam: Reports: Normal inspection, Full ROM. Denies: CVA tenderness (R), CVA tenderness (L), Muscle spasm, Tenderness - Neurological Neurological exam: Alert, Normal gait, Oriented X3, Reflexes normal - Psychiatric Psychiatric exam: Normal affect, Normal mood - Skin Skin exam: Rash (chronic small scabs on both upper and lower extremities) Course Vital Signs 07/24/17 21:11 Temperature 98.3 F Pulse Rate [ 127 H Pulse Ox Probe] Respiratory 24 Rate Blood Pressure 147/94 [Left Arm] Pulse Ox 94 L - Reevaluation(s) Reevaluation #1: 07/24/17 21:45 Accu check 577 07/24/17 22:18 No acute changes on the CBC 07/24/17 22:55 The labs were reviewed The CMP demonstrated K of 3.6, HCO3 20, AG of 21 with VpH of 7.19 with negative normal Ketones. The patient clinically appears well. She is essentially clinically asymptomatic. No NV, no weakness, no altered mental status. She is will need admission but is stable for admission to [facility]. I SAILAJA Ferguson of the [facility] for admission. 07/24/17 22:58 07/25/17 00:28 The accu check after one hour is 250 The patient is doing well. No symptoms Insulin drip turned off. Will continue fluids one hour then recheck labs 07/25/17 01:30 The repeat venous pH and bmp ordered Glucose accucheck is 276 at this time Patient has some nausea, Zofran ordered 07/25/17 02:04 pH normalized to 7.43 07/25/17 02:05 Current HR is 99. Awaiting BMP 07/25/17 02:23 The repeat BMP was reviewed. Glucose is 355. The AG has resolved with normal HCO3. Repeat K is 4.0 The patient will now be admitted for further care and glucose monitoring to ensure she will be able to eat with out uncontrolled glucose, or nausea 07/25/17 02:23 07/25/17 02:36 Medical Decision Making - Lab Data Result diagrams: 07/24/17 21:47 07/25/17 01:40 Lab Results 07/24/17 Range/Units 21:12 POC Glucose 577 H* (70-110) mg/dL Disposition Disposition: Admit Clinical Impression: Hyperglycemia due to type 2 diabetes mellitus Qualifiers: Diabetes mellitus retirement insulin use: unspecified long term care administrator insulin use status Qualified Code(s): E11.65 - Type 2 diabetes mellitus with hyperglycemia DKA (diabetic ketoacidoses) Qualifiers: Diabetes mellitus type: other specified (including CELIA) Disposition: Still a Patient at [facility] Decision to Admit: Admit from ER Decision to Admit Date: 07/24/17 Decision to Admit Time: 22:58 Condition: (2) Stable Time of Disposition: 22:58 Quality - Quality Measures Quality Measures: N/A - Blood Pressure Screening Does Patient Have Any of the Following: Active Dx of HTN Blood Pressure Classification: Hypertensive Reading Systolic Measurement: 154 Diastolic Measurement: 95 Screening for High Blood Pressure: Patient Exclusion, Hx of HTN [G9744]
[2017-07-24 21:57] LABS: BASO % 0.7 % (0-6); EOS % 4.1 % (0-6); GRAN % 55.2 % (47-80); HEMATOCRIT 46.2 % (35.0-47.0); HEMOGLOBIN 15.5 gm/dl (11.6-16.0); LYMPH % 29.3 % (16-45); MEAN CELL VOLUME 84.3 fl (81-97); MEAN CORPUSCULAR HGB CONC 33.5 g/dl (32-36); MEAN PLATELET VOLUME 10.7 fl (7.4-10.4); MONO % 10.7 % (0-9); PLATELET COUNT 183 K/uL (130-400); RED BLOOD COUNT 5.48 M/uL (3.80-5.40); WHITE BLOOD COUNT W/O DIFF 4.6 K/uL (4.2-12.2)
[2017-07-24 22:02] LABS: URINE APPEARANCE CLEAR; URINE BILIRUBIN NEGATIVE (NEGATIVE); URINE BLOOD NEGATIVE (NEGATIVE); URINE COLOR YELLOW; URINE KETONE NEGATIVE (NEGATIVE); URINE LEUKOCYTE ESTERASE NEGATIVE (NEGATIVE); URINE NITRITE NEGATIVE (NEGATIVE); URINE PROTEIN NEGATIVE (NEGATIVE); URINE UROBILINOGEN 0.2 E.U./dL (0.20 - 1.00)
[2017-07-24 22:05] LABS: ACETONE,SERUM NEGATIVE (NEGATIVE)
[2017-07-24 22:06] LABS: URINE GLUCOSE (UA) >=1000 mg/dL (NEGATIVE)
[2017-07-24 22:10] LABS: MEAN CORPUSCULAR HEMOGLOBIN 28.2 pg (27-33)
[2017-07-24 22:11] LABS: BLOOD UREA NITROGEN 6 mg/dL (6-20); CREATININE 0.7 mg/dL (0.5-0.9); EST GLOMERULAR FILTRATION RATE > 60 mL/min
[2017-07-24 22:12] LABS: TOTAL PROTEIN 7.1 g/dL (6.6-8.7)
[2017-07-24 22:17] LABS: ALB/GLOB RATIO 1.2 (1.1-1.8); ALBUMIN 3.9 g/dL (4.0-5.0); ALKALINE PHOSPHATASE 93 U/L (35-104); ALT/SGPT 16 U/L (<33); AST/SGOT 13 U/L (10.0-35.0)
[2017-07-24 22:20] LABS: GLUCOSE,RANDOM 680 mg/dL (74-109)
[2017-07-24] MEDS ORDERED: SOD CHLOR 0.9% WITH KCL 40MEQ 40 MEQ/1,000 ML IV.SOLN IV ONE (22:57)
[2017-07-24] MEDS ORDERED: POTASSIUM BICARB./CIT AC 25 MEQ EFF.TAB PO STA (22:57)
[2017-07-24] MEDS ORDERED: INSULIN REGULAR, HUMAN 100 UNIT in 0.9 % SODIUM CHLORIDE 100ML 100 ML IV SCH ×2 (23:15)
[2017-07-25] MEDS ORDERED: ACETAMINOPHEN 500 MG TABLET PO ONE (00:30)
[2017-07-25] MEDS ORDERED: ONDANSETRON HCL IV 4 MG/2 ML VIAL IVP ONE (01:30)
[2017-07-25 02:13] LABS: BLOOD UREA NITROGEN 7 mg/dL (6-20); CREATININE 0.4 mg/dL (0.5-0.9); EST GLOMERULAR FILTRATION RATE > 60 mL/min
[2017-07-25 02:15] LABS: GLUCOSE,RANDOM 355 mg/dL (74-109)
[2017-07-25] MEDS ORDERED: ONDANSETRON 4 MG ODT TABLET PO SCH (03:38)
[2017-07-25] MEDS ORDERED: ALBUTEROL SULFATE (0.083%) 2.5 MG/3 ML NEB INH PRN ×2 (03:38→08:30)
[2017-07-25] MEDS ORDERED: IPRATROPIUM/ALBUTEROL (0.5MG/3MG) NEB INH SCH (03:38)
[2017-07-25] MEDS ORDERED: ALPRAZOLAM 0.5 MG PO PRN (03:38)
[2017-07-25] MEDS ORDERED: HUMULIN R 100 UNIT/ML VIAL SQ PRN (03:38)
[2017-07-25] MEDS ORDERED: POTASSIUM CHL 20MEQ IN 1L NS 20 MEQ/1,000 ML BAG IV ONE (03:38)
[2017-07-25] MEDS ORDERED: ACETAMINOPHEN 325 MG TAB PO PRN (03:38)
[2017-07-25] MEDS: OXYCODONE/APAP 10MG-325MG TABLET PO PRN ×3 (03:57→21:53)
[2017-07-25 06:54] LABS: BLOOD UREA NITROGEN 10 mg/dL (6-20); CREATININE 0.4 mg/dL (0.5-0.9); EST GLOMERULAR FILTRATION RATE > 60 mL/min; GLUCOSE,RANDOM 271 mg/dL (74-109)
[2017-07-25] MEDS ORDERED: INSULIN LISPRO 10 UNIT SQ SCH (08:00)
[2017-07-25] MEDS ORDERED: ALPRAZOLAM 0.25 MG TABLET PO PRN (08:30)
--- NOTE | 2017-07-25 08:58 | History & Physical ---
History of Present Illness - Date of Service Date of Service for History & Physical: 07/25/17 - History of Present Illness Admitting Diagnosis: hyperglycemia History of Present Illness: 47 yo female presents for hyperglycemia. PMH Insulin dependent DM type 2, Payette's Disease, COPD, Asthma, h/o TIA, MRSA. Pt states she saw her PCP Dr Billy yesterday, had labs drawn and he adjusted her insulin at that visit. Increased Lantus to 60 units BID from 50. Increased s/s from 5 units to 10 units. Pt was notified by PCP office that her AM labs showed glucose of 488 and instructed to go to ER. pt took 14 units of Humalog and went to ER. ER- Pt presented to ER for elevated blood sugar. Labs- @ 2147 Na 131, K 3.6, Cl 90, CO2 20, BUN 6, creatinine .7, GFR >60, glucose 680, Ca 8.7, mag 2, anion gap 21 repeat @ 0140 Na 137, K 4.0, Cl 99, CO2 26, BUN 7, creatinine .4, GFR >60, glucose 355, Ca 8, anion montoya 12 after 1L NS, PO K 25 MEq, and then 40Meq in 1l at 125. pt also given zofran for nausea. Insulin gtt was started in ER and then paused at 0030 for glucose of 250 and pt c/o hypoglycemic symptoms (pt baseline glucose 300s at home). Admitted for hyperglycemia. 07/25/17 Pt is alert and oriented, pink warm and dry. Moving all extremities. Reports leg wounds that have been getting worse in the past several days but she forgot to show them to PCP in office yesterday. Wounds noted as potential source of infection. Dr Billy contacted about current visit. Dr Billy reports that pt has chronically high blood sugars and is attempting to control her below 300. Recently saw her in office yesterday but pt did not show leg wounds during that visit. Insulin orders were adjusted to 60 units Lantus BID, 10 units Humalog with meals and additional s/s 2 units per 50 above 200. Pt refuses endocrine and insulin and steroids have been managed by primary. PCP also states pt had stopped using insulin for an extended time but returned to treatment 2 weeks ago. Pt also sees ID for chronic wounds, POC mentioned to Dr Billy and he wishes to contact ID to confirm POC. PCP updated limited potentials for infection, WBC not elevated but pt is on steroids for Payette's disease and potential masking of WBC elevation. POC confirmed with PCP and ID. Dosing orders faxed to Dr Billy as [facility] will not accept orders from providers outside [facility]. PCP [facility] Travel Screening - Travel/Exposure Within Last 30 Days Have you traveled within the last 30 days?: No - Travel/Exposure Within Last Year Have you traveled outside the [place] in the last year?: No - Additonal Travel Details Have you been exposed to anyone with a communicable illness?: No - Travel Symptoms Symptom Screening: None Review of Systems Constitutional: Denies: Chills, Fever, Malaise, Weakness Eyes: Denies: Eye discharge ENT: Denies: Congestion, Throat pain Respiratory: Denies: Cough Cardiovascular: Denies: Chest pain, Palpitations, Syncope Endocrine: Denies: Fatigue, Polydipsia, Polyuria Gastrointestinal: Reports: Abdominal pain (chronic). Denies: Diarrhea, Nausea, Vomiting Genitourinary: Denies: Dysuria Musculoskeletal: Denies: Arthralgia, Back pain, Joint swelling, Myalgia Skin: Reports: Rash. Denies: Bruising, Change in color Neurological: Denies: Confusion, Headache, Numbness, Weakness Psychiatric: Denies: Anxiety Hematological/Lymphatic: Denies: Blood Clots, Easy bleeding, Easy bruising, Swollen glands Past Medical History - SOCIAL HISTORY Smoking Status: Former smoker Alcohol Use: None Drug Use: None - RESPIRATORY Hx Respiratory Disorders: Yes Hx Asthma: Yes Hx COPD: Yes Hx Pulmonary Embolism: Yes Hx Sleep Apnea: Yes - CARDIOVASCULAR Hx Cardio Disorders: Yes Hx Deep Vein Thrombosis: Yes (hx PE/DVT rt leg) Hx Edema: Yes Hx Hypertension: Yes Hx Irregular Heartbeat: Yes (occas tachycardia (SVT)) Hx Palpitations: Yes Hx Vascular Disease: Yes - NEURO Hx Neuro Disorders: Yes Hx Headaches: Yes (intermittent ROSS) Hx Neuropathy: Yes (feet) Hx TIA: Yes (summer 2016) - GI Hx GI Disorders: Yes Hx Abdominal Pain: Yes Hx Nausea/Vomiting: Yes Hx Pancreatitis: Yes - Hx Genitourinary Disorders: No Comment:: had tubal ligation 2003 - ENDOCRINE Hx Endocrine Disorders: Yes Hx Diabetes: Yes Comment:: has addisons disease - MUSCULOSKELETAL Hx Musculoskeletal Disorders: Yes Hx Arthritis: Yes - PSYCH Hx Psych Problems: Yes Hx Anxiety: Yes Hx Depression: Yes - HEMATOLOGY/ONCOLOGY Hx Hematology/Oncology Disorders: Yes Hx Anemia: Yes Hx Clotting Problems: Yes Hx Blood Transfusions: Yes Family Medical History Any Significant Family History?: Yes Hx Cancer: Grandparents Hx Heart Disease: Grandparents Hx HTN: Mother Hx Seizures: Mother H&P Meds/Allergies - Allergies Allergies: Allergies Allergy/AdvReac Type Severity Reaction Status Date / Time No Known Drug Allergies Allergy Verified 07/24/17 21:12 - Active Medications Active Medications: Current Medications Acetaminophen (Tylenol 325mg) 650 mg PO Q6H PRN PRN Reason: PAIN/TEMP Albuterol Sulfate () 2.5 mg INH Q4H PRN PRN Reason: DIFFICULTY IN BREATHING Albuterol/Ipratropium (Duoneb) 3 ml INH Q6H PRN PRN Reason: SHORTNESS OF BREATH Alprazolam (Xanax) 0.5 mg PO BID PRN PRN Reason: ANXIETY Duloxetine HCl (Cymbalta) 60 mg PO BID SHARDA Potassium Chloride/Sodium Chloride ( Potassium Chl 20meq/) 20 meq in 1,000 mls @ 100 mls/hr IV NOW ONE Stop: 07/25/17 13:37 Last Admin: 07/25/17 04:34 Dose: 100 mls/hr Insulin Detemir (Levemir Flextouch) 60 unit SQ BID SHARDA Insulin Human Regular (Humulin R) 1 unit SQ Q4H PRN; Protocol PRN Reason: Hyperglycemica Lamotrigine (Lamictal) 25 mg PO DAILY SHARDA Non-Formulary Medication (Insulin Lispro [Humalog]) 10 units SQ WMEALS SHARDA (Hydrocortisone [ Hydrocortisone] 10 Mg) 30 mg PO DAILY SHARDA (Hydrocortisone [ Hydrocortisone] 10 Mg) 20 mg PO 1400 SHARDA Ondansetron HCl (Zofran Odt) 4 mg PO Q8H PRN PRN Reason: NAUSEA Oxycodone/Acetaminophen (Percocet 10-325 Mg Tablet) 1 each PO Q6H PRN PRN Reason: Pain - General Last Admin: 07/25/17 03:57 Dose: 1 each Trazodone HCl (Desyrel) 150 mg PO QHS SHARDA Physical Exam - Vital Signs Vital Signs: Vital Signs - Last 24 Hrs Temp Pulse Pulse Resp BP Pulse Ox 07/25/17 08:17 98.2 F 96 H 96 H 18 160/82 96 07/25/17 03:07 108 H 18 07/25/17 03:00 99 F 108 H 18 154/95 95 - General General Appearance: Alert, Oriented x3, Cooperative, No acute distress Limitations: No limitations - Head Head exam: Normal inspection - Eye Eye exam: Normal appearance, Other (blind left eye-baseline). negative: Conjunctival injection, Scleral icterus - ENT ENT exam: Normal exam Ear exam: Normal external inspection Nasal Exam: Normal inspection Mouth exam: Normal external inspection - Neck Neck exam: Normal inspection, Full ROM. negative: Tenderness - Respiratory Respiratory exam: Normal lung sounds bilaterally. negative: Accessory muscle use, Decreased breath sounds, Respiratory distress, Rhonchi, Stridor, Wheezes - Cardiovascular Cardiovascular Exam: Normal rhythm, Normal heart sounds, Tachycardia Peripheral Pulses: 1+: Dorsalis Pedis (R), Dorsalis Pedis (L), 2+: Radial (R), Radial (L) - GI/Abdominal GI/Abdominal exam: Soft. negative: Tenderness - Rectal Rectal exam: Deferred - exam: Deferred - Extremities Extremities exam: Normal inspection - Back Back exam: Reports: Normal inspection, Full ROM. Denies: CVA tenderness (R), CVA tenderness (L), Muscle spasm, Tenderness - Neurological Neurological exam: Alert, Normal gait, Oriented X3, Reflexes normal - Psychiatric Psychiatric exam: Normal affect, Normal mood - Skin Skin exam: Dry, Rash (chronic small scabs on both upper and lower extremities), Other (multiple wound to BLE) Results - Labs Result Diagrams: 07/24/17 21:47 07/25/17 14:34 Labs Last 24 Hours: Laboratory Results - last 24 hr 07/25/17 07/25/17 07/25/17 03:00 06:08 06:36 Sodium 137 Potassium 4.0 Chloride 100 Carbon Dioxide 28.0 Anion Gap 9.0 BUN 10 Creatinine 0.4 L Estimated GFR > 60 POC Glucose 284 H 229 H Random Glucose 271 H Calcium 8.1 L - Imaging and Cardiology Chest x-ray Status: Report reviewed Additional Comments: confirmed PICC placement VTE H&P Assessment - Risk for VTE Risk for VTE: Yes Risk Level: High Risk Assessment Date: 07/25/17 Risk Assessment Time: 14:45 VTE Orders Placed or Will Be Placed: Yes Plan - Inpatient Certification Inpatient Certification: 07/25/17 14:58 see inpatient cert form - Detailed Diagnosis and Plan (1) Hyperglycemia due to type 2 diabetes mellitus Current Visit: Yes Status: Acute Qualifiers: Diabetes mellitus mcfp insulin use: with longwall foreman use Qualified Code( s): E11.65 - Type 2 diabetes mellitus with hyperglycemia; Z79.4 - vermin exterminator ( current) use of insulin; Z79.4 - senior living (current) use of insulin; Z79.4 - senior living (current) use of insulin; Z79.4 - senior living (current) use of insulin Base Code: E11.65 - TYPE 2 DIABETES MELLITUS WITH HYPERGLYCEMIA Priority: High Onset Date: ~07/24/17 Comment: 07/25/17 - pt presented through ER for hyperglycemia (glucose 680) -short term tx with insulin gtt stopped 0030 -POC continue home insulin infusion (POC confirmed with PCP) (2) Wound infection Current Visit: Yes Status: Acute Base Code: T14.8XXA - OTHER INJURY OF UNSPECIFIED BODY REGION, INITIAL ENCOUNTER; L08.9 - LOCAL INFECTION OF THE SKIN AND SUBCUTANEOUS TISSUE, UNSP Priority: Medium Onset Date: ~07/25/17 Comment: 07/25/17 -BLE wounds, wound bed into SQ tissues, warm red - pt had sudden onset of hyperglycemia -HX of numerous MRSA infections -REFUSING any/all PO ABX -PICC placed r/t poor IV access and home therapy POC -Cubacin 400mg IVPB ordered daily x 6 days, ID to take over medication mgt (3) Addisons disease Current Visit: No Status: Acute Base Code: E27.1 - PRIMARY ADRENOCORTICAL INSUFFICIENCY Comment: 07/25/17 - will continue prednisone 30mg am 20mg afternoon - needs plan for Payette's crisis in terms of increasing dose but this needs to be followed up as an outpatient with PCP and needs to get endocrinology follow up (4) Full code status Current Visit: Yes Status: Acute Base Code: Z78.9 - OTHER SPECIFIED HEALTH STATUS Comment: 07/25/17 -continue full code status
[2017-07-25] MEDS ORDERED: IPRATROPIUM/ALBUTEROL (0.5MG/3MG) NEB INH PRN (09:00)
[2017-07-25] MEDS ORDERED: ENOXAPARIN SODIUM 120 MG SQ SCH (10:00)
[2017-07-25] MEDS ORDERED: PREGABALIN 150 MG PO SCH (10:00)
[2017-07-25] MEDS ORDERED: HYDROCORTISONE 10 MG PO SCH (10:00)
[2017-07-25] MEDS: ONDANSETRON 4 MG ODT TABLET PO PRN ×2 (10:04→21:53)
[2017-07-25] MEDS: DULOXETINE HCL 30 MG CAPSULE.DR PO SCH ×2 (10:29→21:46)
[2017-07-25] MEDS: BREO (FLUTICASONE/VILANTEROL) 200MCG/25MCG INHALER INH SCH (10:29)
[2017-07-25] MEDS: ENOXAPARIN 40 MG/0.4 ML SYR SQ SCH ×2 (10:30→21:45)
[2017-07-25] MEDS: ENOXAPARIN 80 MG/0.8 ML SYR SQ SCH ×2 (10:30→21:45)
[2017-07-25] MEDS: PREGABALIN (LYRICA) 100MG CAPSULE PO SCH ×2 (10:30→21:46)
[2017-07-25] MEDS: LEVEMIR FLEXTOUCH 100 UNIT/ML INSULIN PEN SQ SCH ×2 (10:31→21:50)
[2017-07-25] MEDS: LAMOTRIGINE 100 MG TABLET PO SCH (10:32)
[2017-07-25] MEDS: DAPTOMYCIN 500 MG/VIAL IV SCH (11:52)
[2017-07-25] MEDS: NOVOLOG FLEXPEN (INSULIN ASPART) 100 UNITS/ML SQ SCH ×5 (11:53→21:49)
[2017-07-25 14:51] LABS: BLOOD UREA NITROGEN 7 mg/dL (6-20); CREATININE 0.4 mg/dL (0.5-0.9); EST GLOMERULAR FILTRATION RATE > 60 mL/min; GLUCOSE,RANDOM 215 mg/dL (74-109)
--- NOTE | 2017-07-25 14:55 | Inpatient Certification ---
Inpatient Certification Admit to inpatient care: Based on my medical assessment, after consideration of patient's risk factors (age, co-morbidities and patient presenting symptoms and acuity), I expect that this patient will remain in the hospital greater than or equal to two midnights and that the services needed warrant inpatient care because: Patient Risk Factors: Hyperglycemia, wound infection Estimated length of stay: [] The patient may reasonably be expected to be discharged or transferred to a hospital within 96 hours after admission to [facility]. Services needed: PICC mgt, IV therapy, glucose mgt Post hospital care (if known): IV abx infusion mgt I certify that my determination is in accordance with my understanding of Medicare requirements for reasonable and necessary inpatient services. 07/25/17 14:54
[2017-07-25] MEDS: HYDROCORTISONE 10 MG PO SCH ×2 (19:41)
[2017-07-25] MEDS: TRAZODONE 50 MG TABLET PO SCH (21:46)
[2017-07-26] MEDS: ONDANSETRON 4 MG ODT TABLET PO PRN ×2 (06:35→08:42)
[2017-07-26 06:36] LABS: BLOOD UREA NITROGEN 7 mg/dL (6-20); CREATININE 0.4 mg/dL (0.5-0.9); EST GLOMERULAR FILTRATION RATE > 60 mL/min; GLUCOSE,RANDOM 73 mg/dL (74-109)
--- NOTE | 2017-07-26 07:29 | RADIOLOGY REPORT ---
EXAM: AP CHEST HISTORY: VERIFY PICC LINE PLACEMENT. TECHNIQUE: A single AP view of the chest was obtained. Comparison: Two view chest 05/19/17. FINDINGS: The previously seen right sided venous access port has been removed. There is now a right sided PICC line in place with the catheter tip somewhat difficult to visualize overlying the mediastinum, but probably terminating in the region of the lower SVC. Persistent elevation of the right hemidiaphragm. Stable heart size. Postop changes right upper quadrant as before. There is probably an IVC filter partially seen along the lower edge of the film. IMPRESSION: THE TIP OF THE PICC LINE IS PROBABLY IN THE REGION OF THE LOWER SVC. JOB NUMBER: [id number] MTDD
[2017-07-26] MEDS ORDERED: LEVEMIR FLEXTOUCH 100 UNIT/ML INSULIN PEN SQ SCH (08:14)
[2017-07-26] MEDS ORDERED: ONDANSETRON HCL IV 4 MG/2 ML VIAL IVP PRN (09:10)
[2017-07-26] MEDS ORDERED: DEXTROSE 5 % IN WATER 500 ML IV PRN (09:17)
[2017-07-26] MEDS: ENOXAPARIN 80 MG/0.8 ML SYR SQ SCH ×2 (09:24→21:20)
[2017-07-26] MEDS: ENOXAPARIN 40 MG/0.4 ML SYR SQ SCH ×2 (09:25→21:19)
[2017-07-26] MEDS: BREO (FLUTICASONE/VILANTEROL) 200MCG/25MCG INHALER INH SCH (09:37)
[2017-07-26] MEDS: HEPARIN SODIUM FLUSH 100 UNITS/ML SYR 5ML IVP PRN ×3 (10:00→18:38)
[2017-07-26] MEDS: DAPTOMYCIN 500 MG/VIAL IV SCH (10:14)
[2017-07-26] MEDS: DULOXETINE HCL 30 MG CAPSULE.DR PO SCH ×2 (10:24→21:19)
[2017-07-26] MEDS: NOVOLOG FLEXPEN (INSULIN ASPART) 100 UNITS/ML SQ SCH ×7 (10:25→21:21)
--- NOTE | 2017-07-26 11:02 | Physician Progress Note ---
Subjective - Date Date of Physician Progress Note: 07/26/17 Objective - Vital Signs Vital Signs: Vital Signs - Last 24 Hrs Temp Pulse Resp BP BP BP Pulse Ox 07/26/17 07:27 98.9 F 85 17 136/84 95 07/25/17 21:00 96 H 18 07/25/17 17:57 98.9 F 108 H 18 143/80 95 07/25/17 10:43 98.2 F 160/82 - General General Appearance: Alert, Oriented x3, Cooperative, No acute distress Limitations: No limitations - Head Head exam: Normal inspection - Eye Eye exam: Normal appearance, Other (blind left eye-baseline). negative: Conjunctival injection, Scleral icterus - ENT ENT exam: Normal exam Ear exam: Normal external inspection Nasal Exam: Normal inspection Mouth exam: Normal external inspection - Neck Neck exam: Normal inspection, Full ROM. negative: Tenderness - Respiratory Respiratory exam: Normal lung sounds bilaterally. negative: Accessory muscle use, Decreased breath sounds, Respiratory distress, Rhonchi, Stridor, Wheezes - Cardiovascular Cardiovascular Exam: Normal rhythm, Normal heart sounds, Tachycardia Peripheral Pulses: 1+: Dorsalis Pedis (R), Dorsalis Pedis (L), 2+: Radial (R), Radial (L) - GI/Abdominal GI/Abdominal exam: Soft. negative: Tenderness - Rectal Rectal exam: Deferred - exam: Deferred - Extremities Extremities exam: Normal inspection - Back Back exam: Reports: Normal inspection, Full ROM. Denies: CVA tenderness (R), CVA tenderness (L), Muscle spasm, Tenderness - Neurological Neurological exam: Alert, Normal gait, Oriented X3, Reflexes normal - Psychiatric Psychiatric exam: Normal affect, Normal mood - Skin Skin exam: Dry, Rash (chronic small scabs on both upper and lower extremities), Other (multiple wound to BLE) Assessment and Plan - Assessment and Plan (1) Hyperglycemia due to type 2 diabetes mellitus Current Visit: Yes Status: Acute Qualifiers: Diabetes mellitus care home insulin use: with care home use Qualified Code( s): E11.65 - Type 2 diabetes mellitus with hyperglycemia; Z79.4 - assisted ( current) use of insulin; Z79.4 - terminal system operator (current) use of insulin; Z79.4 - terminal system operator (current) use of insulin; Z79.4 - assisted (current) use of insulin Base Code: E11.65 - TYPE 2 DIABETES MELLITUS WITH HYPERGLYCEMIA Priority: High Onset Date: ~07/24/17 Comment: 07/25/17 - pt presented through ER for hyperglycemia (glucose 680) -short term tx with insulin gtt stopped 29 -POC continue home insulin infusion (POC confirmed with PCP) 07/26/17 -glucose ranging from 73-126 and pt has significant symptoms of hypoglycemia at normal levels -given zofran and encouraged to drink juice -continued vomiting, D5W 500@125 and compazine 5mg given -holding AM levermir dose (2) Wound infection Current Visit: Yes Status: Acute Base Code: T14.8XXA - OTHER INJURY OF UNSPECIFIED BODY REGION, INITIAL ENCOUNTER; L08.9 - LOCAL INFECTION OF THE SKIN AND SUBCUTANEOUS TISSUE, UNSP Priority: Medium Onset Date: ~07/25/17 Comment: 07/25/17 -BLE wounds, wound bed into SQ tissues, warm red - pt had sudden onset of hyperglycemia -HX of numerous MRSA infections -REFUSING any/all PO ABX 07/26/17 -ABX tolerating and glucose has better control -infusions to start saturday at [facility] -ID f/u 07/30/17 -PICC placed r/t poor IV access and home therapy POC -Cubacin 400mg IVPB ordered daily x 6 days, ID to take over medication mgt (3) Addisons disease Current Visit: No Status: Acute Base Code: E27.1 - PRIMARY ADRENOCORTICAL INSUFFICIENCY Comment: 07/25/17 - will continue hydrocortisone 30mg am 20mg afternoon - needs plan for [place]'s crisis in terms of increasing dose but this needs to be followed up as an outpatient with PCP and needs to get endocrinology follow up 07/26/17 -continue hydrocortisone (4) Full code status Current Visit: Yes Status: Acute Base Code: Z78.9 - OTHER SPECIFIED HEALTH STATUS Comment: 07/25/17 -continue full code status 07/26/17 -continue full code status Results - Labs Result Diagrams: 07/24/17 21:47 07/26/17 06:15 Labs Last 24 Hours: Laboratory Results - last 24 hr 07/25/17 07/25/17 07/25/17 11:22 11:30 14:34 Sodium 137 Potassium 4.0 Chloride 101 Carbon Dioxide 26.0 Anion Gap 10.0 BUN 7 Creatinine 0.4 L Estimated GFR > 60 POC Glucose 252 H Cancelled Random Glucose 215 H Calcium 8.5 L 07/25/17 07/25/17 07/25/17 17:00 17:02 20:30 Sodium Potassium Chloride Carbon Dioxide Anion Gap BUN Creatinine Estimated GFR POC Glucose Cancelled 159 H 250 H Random Glucose Calcium 07/26/17 07/26/17 06:15 07:58 Sodium 142 Potassium 3.4 Chloride 104 Carbon Dioxide 29.0 Anion Gap 9.0 BUN 7 Creatinine 0.4 L Estimated GFR > 60 POC Glucose 98 Random Glucose 73 L Calcium 8.7 DVT/PE Assessment - Risk for VTE Risk for VTE: No Risk Level: High Risk Assessment Date: 07/25/17 Risk Assessment Time: 14:45 VTE Orders Placed or Will Be Placed: Yes - Active Medicaitons Current Medications: Current Medications Acetaminophen (Tylenol 325mg) 650 mg PO Q6H PRN PRN Reason: PAIN/TEMP Last Admin: 07/25/17 17:10 Dose: 650 mg Albuterol Sulfate () 2.5 mg INH Q4H PRN PRN Reason: DIFFICULTY IN BREATHING Albuterol/Ipratropium (Duoneb) 3 ml INH Q6H PRN PRN Reason: SHORTNESS OF BREATH Alprazolam (Xanax) 0.5 mg PO BID PRN PRN Reason: ANXIETY Daptomycin (Cubicin) 400 mg IV DAILY [facility] Stop: 07/30/17 11:01 Last Admin: 07/26/17 10:14 Dose: 400 mg Duloxetine HCl (Cymbalta) 60 mg PO BID [facility] Last Admin: 07/26/17 10:24 Dose: Not Given Enoxaparin Sodium (Lovenox) 80 mg SQ BID [facility] Last Admin: 07/26/17 09:24 Dose: 80 mg Enoxaparin Sodium (Lovenox) 40 mg SQ BID [facility] Last Admin: 07/26/17 09:25 Dose: 40 mg Dextrose () 500 mls @ 125 mls/hr IV .Q4H PRN PRN Reason: NAUSEA Last Admin: 07/26/17 09:34 Dose: 125 mls/hr Insulin Aspart (Novolog Flexpen) 1 unit SQ TIDINS [facility] PRN Reason: Protocol Last Admin: 07/26/17 10:25 Dose: Not Given Insulin Aspart (Novolog Flexpen) 10 unit SQ TIDINS [facility] Last Admin: 07/26/17 10:25 Dose: Not Given Insulin Aspart (Novolog Flexpen) 1 unit SQ QHS [facility] PRN Reason: Protocol Last Admin: 07/25/17 21:49 Dose: 1 unit Insulin Detemir (Levemir Flextouch) 50 unit SQ BID [facility] Lamotrigine (Lamictal) 25 mg PO DAILY [facility] Last Admin: 07/25/17 10:32 Dose: 25 mg (Hydrocortisone [ Hydrocortisone] 10 Mg) 30 mg PO DAILY [facility] Last Admin: 07/25/17 19:41 Dose: Not Given (Hydrocortisone [ Hydrocortisone] 10 Mg) 20 mg PO 1400 [facility] Last Admin: 07/25/17 19:41 Dose: Not Given Ondansetron HCl (Zofran Odt) 4 mg PO Q8H PRN PRN Reason: NAUSEA Last Admin: 07/26/17 08:42 Dose: 4 mg Ondansetron HCl (Zofran) 4 mg IVP Q6H PRN PRN Reason: NAUSEA Last Admin: 07/26/17 09:12 Dose: 4 mg Oxycodone/Acetaminophen (Percocet 10-325 Mg Tablet) 1 each PO Q6H PRN PRN Reason: Pain - General Last Admin: 07/25/17 21:53 Dose: 1 each Pregabalin (Lyrica) 200 mg PO BID [facility] Last Admin: 07/25/17 21:46 Dose: 200 mg Trazodone HCl (Desyrel) 150 mg PO QHS [facility] Last Admin: 07/25/17 21:46 Dose: 150 mg AMI Plan - Labs Result Diagrams: 07/24/17 21:47 07/26/17 06:15
[2017-07-26] MEDS: LAMOTRIGINE 100 MG TABLET PO SCH (13:05)
[2017-07-26] MEDS: PREGABALIN (LYRICA) 100MG CAPSULE PO SCH ×2 (13:06→21:19)
[2017-07-26] MEDS ORDERED: PROCHLORPERAZINE 10 MG/2 ML VIAL IVP PRN (15:48)
[2017-07-26] MEDS ORDERED: DEXTROSE 50 % IVP 50 ML DISP.SYRIN IVP PRN (15:50)
[2017-07-26] MEDS ORDERED: DEXTROSE 5 % IN WATER 500 ML IV NR (16:00)
[2017-07-26] MEDS: LEVEMIR FLEXTOUCH 100 UNIT/ML INSULIN PEN SQ SCH ×2 (16:17→21:21)
[2017-07-26] MEDS: HYDROCORTISONE 10 MG PO SCH ×2 (16:22→16:23)
[2017-07-26] MEDS: TRAZODONE 50 MG TABLET PO SCH (21:19)
[2017-07-26] MEDS: OXYCODONE/APAP 10MG-325MG TABLET PO PRN (21:23)
[2017-07-27 06:51] LABS: BLOOD UREA NITROGEN 4 mg/dL (6-20); CREATININE 0.4 mg/dL (0.5-0.9); EST GLOMERULAR FILTRATION RATE > 60 mL/min; GLUCOSE,RANDOM 248 mg/dL (74-109)
[2017-07-27] MEDS: NOVOLOG FLEXPEN (INSULIN ASPART) 100 UNITS/ML SQ SCH ×4 (08:10→12:28)
[2017-07-27] MEDS: DAPTOMYCIN 500 MG/VIAL IV SCH (09:15)
[2017-07-27] MEDS: PREGABALIN (LYRICA) 100MG CAPSULE PO SCH (09:15)
[2017-07-27] MEDS: LAMOTRIGINE 100 MG TABLET PO SCH (09:16)
[2017-07-27] MEDS: ENOXAPARIN 40 MG/0.4 ML SYR SQ SCH (09:17)
[2017-07-27] MEDS: DULOXETINE HCL 30 MG CAPSULE.DR PO SCH (09:17)
[2017-07-27] MEDS: ENOXAPARIN 80 MG/0.8 ML SYR SQ SCH (09:17)
[2017-07-27] MEDS: OXYCODONE/APAP 10MG-325MG TABLET PO PRN (09:27)
[2017-07-27] MEDS: BREO (FLUTICASONE/VILANTEROL) 200MCG/25MCG INHALER INH SCH (10:00)
--- NOTE | 2017-07-27 10:15 | Discharge Summary ---
Providers Discharge Summary Date: 07/27/17 Date of admission: 07/25/17 10:23 Expected Date of Discharge: 07/27/17 Attending physician: TELMA LORENZO Primary care physician: DA BILLY M.D. Physical Exam - Vital Signs Vital Signs: Vital Signs - Last 24 Hrs Temp Pulse Resp BP BP Pulse Ox 07/27/17 07:37 98.8 F 103 H 16 125/75 94 L 07/27/17 00:00 98.9 F 105 H 16 118/70 94 L 07/26/17 16:00 97.3 F L 91 H 16 126/76 95 - General General Appearance: Alert, Oriented x3, Cooperative, No acute distress Limitations: No limitations - Head Head exam: Normal inspection - Eye Eye exam: Normal appearance, Other (blind left eye-baseline). negative: Conjunctival injection, Scleral icterus - ENT ENT exam: Normal exam Ear exam: Normal external inspection Nasal Exam: Normal inspection Mouth exam: Normal external inspection - Neck Neck exam: Normal inspection, Full ROM. negative: Tenderness - Respiratory Respiratory exam: Normal lung sounds bilaterally. negative: Accessory muscle use, Decreased breath sounds, Respiratory distress, Rhonchi, Stridor, Wheezes - Cardiovascular Cardiovascular Exam: Normal rhythm, Normal heart sounds, Tachycardia Peripheral Pulses: 1+: Dorsalis Pedis (R), Dorsalis Pedis (L), 2+: Radial (R), Radial (L) - GI/Abdominal GI/Abdominal exam: Soft. negative: Tenderness - Rectal Rectal exam: Deferred - exam: Deferred - Extremities Extremities exam: Normal inspection - Back Back exam: Reports: Normal inspection, Full ROM. 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: with terminal system operator use Qualified Code( s): E11.65 - Type 2 diabetes mellitus with hyperglycemia; Z79.4 - prison ( current) use of insulin; Z79.4 - prison (current) use of insulin; Z79.4 - termite treater helper (current) use of insulin; Z79.4 - prison (current) use of insulin Base Code: E11.65 - TYPE 2 DIABETES MELLITUS WITH HYPERGLYCEMIA Onset Date: ~ 07/24/17 Comment: 07/27/17 - pt presented through ER for hyperglycemia (glucose 680) -short term tx with insulin gtt stopped 29 -POC continue home insulin infusion (POC confirmed with PCP) -Glucose has now ranged form 150-230 and pt. reports symptoms greatly improved from yesterday, improved appetie, denies nausea -Plan to d/c home today, will continue long-acting insulin decreased to 25 units bid, goal is to keep glucose around 200 (2) Wound infection Current Visit: Yes Status: Acute Base Code: T14.8XXA - OTHER INJURY OF UNSPECIFIED BODY REGION, INITIAL ENCOUNTER; L08.9 - LOCAL INFECTION OF THE SKIN AND SUBCUTANEOUS TISSUE, UNSP Onset Date: ~07/25/17 Comment: 07/27/17 -BLE wounds, wound bed into SQ tissues, warm red - pt hx sudden onset of hyperglycemia upon admission- 680 -HX of numerous MRSA infections -REFUSING any/all PO ABX -ABX tolerating and glucose has better control -infusions to start saturday at [facility] -ID f/u 07/30/17 -PICC placed r/t poor IV access and home therapy POC -Cubacin 400mg IVPB ordered daily x 6 days, ID to take over medication mgt (3) Addisons disease Current Visit: No Status: Acute Base Code: E27.1 - PRIMARY ADRENOCORTICAL INSUFFICIENCY Comment: 07/27/17 - will continue hydrocortisone 30mg am 20mg afternoon - needs plan for Webb's crisis in terms of increasing dose but this needs to be followed up as an outpatient with PCP and needs to get endocrinology follow up (4) Full code status Current Visit: Yes Status: Acute Base Code: Z78.9 - OTHER SPECIFIED HEALTH STATUS Comment: 07/27/17: Pt. remains full code status - Disposition Discharge home, self-care. _Pt. to have daily cubicin infusions at [facility] starting tomorrow at 0900- ordered through 08/01, however, pt. will f/u with ID on 4/17 - Hospitalization Course Hospital Course: 47 yo female presents for hyperglycemia. PMH Insulin dependent DM type 2, Webb's Disease, COPD, Asthma, h/o TIA, MRSA. Pt states she saw her PCP Dr Billy yesterday, had labs drawn and he adjusted her insulin at that visit. Increased Lantus to 60 units BID from 50. Increased s/s from 5 units to 10 units. Pt was notified by PCP office that her AM labs showed glucose of 488 and instructed to go to ER. pt took 14 units of Humalog and went to ER. ER- Pt presented to ER for elevated blood sugar. Labs- @ 2147 Na 131, K 3.6, Cl 90, CO2 20, BUN 6, creatinine .7, GFR >60, glucose 680, Ca 8.7, mag 2, anion gap 21 repeat @ 0140 Na 137, K 4.0, Cl 99, CO2 26, BUN 7, creatinine .4, GFR >60, glucose 355, Ca 8, anion montoya 12 after 1L NS, PO K 25 MEq, and then 40Meq in 1l at 125. pt also given zofran for nausea. Insulin gtt was started in ER and then paused at 0030 for glucose of 250 and pt c/o hypoglycemic symptoms (pt baseline glucose 300s at home). Admitted for hyperglycemia. 07/25/17 Pt is alert and oriented, pink warm and dry. Moving all extremities. Reports leg wounds that have been getting worse in the past several days but she forgot to show them to PCP in office yesterday. Wounds noted as potential source of infection. Dr Billy contacted about current visit. Dr Billy reports that pt has chronically high blood sugars and is attempting to control her below 300. Recently saw her in office yesterday but pt did not show leg wounds during that visit. Insulin orders were adjusted to 60 units Lantus BID, 10 units Humalog with meals and additional s/s 2 units per 50 above 200. Pt refuses endocrine and insulin and steroids have been managed by primary. PCP also states pt had stopped using insulin for an extended time but returned to treatment 2 weeks ago. Pt also sees ID for chronic wounds, POC mentioned to Dr Billy and he wishes to contact ID to confirm POC. PCP updated limited potentials for infection, WBC not elevated but pt is on steroids for Linwood's disease and potential masking of WBC elevation. POC confirmed with PCP and ID. Dosing orders faxed to Dr Billy as [facility] will not accept orders from providers outside [facility]. 07/26/17 -glucose ranging from 73-126 and pt has significant symptoms of hypoglycemia at normal levels -given zofran and encouraged to drink juice -continued vomiting, D5W 500@125 and compazine 5mg given -holding AM levermir dose -Plan to stay another night due to hypoglycemia episode 07/27/17 Pt. is resting comfortably in bed. She states she is feeling great today, her appetite is improved. Plan to d/c home after daily cubicin infusion. Her blood glucose has ranged fro 150-225 and pt. denies symptoms of hyper/hypo glycemia. Blood sugars control has greatly improved since initiation of cubicin , hypoglycemia likely secondary to LE skin infection. Pt. will go to [facility] at 0900 for her cubicin infusions, ordered through 08/01, however, pt. will f/u with ID on 07/30 for evaluation. PCP [facility] Procedures: Imaging and X-Rays 07/25/17 13:02 CHEST 1 VIEW [RAD] Stat Abnormal Labs: Abnormal Lab Results 07/25/17 07/25/17 07/25/17 Range/Units 11:22 14:34 17:02 Potassium (3.4-4.5) mmol/L Carbon Dioxide (22-29) mmol/L BUN (6-20) mg/dL Creatinine 0.4 L (0.5-0.9) mg/dL POC Glucose 252 H 159 H (70-110) mg/dL Random Glucose 215 H (74-109) mg/dL Calcium 8.5 L (8.6-10.0) mg/dL 07/25/17 07/26/17 07/26/17 Range/Units 20:30 06:15 11:30 Potassium (3.4-4.5) mmol/L Carbon Dioxide (22-29) mmol/L BUN (6-20) mg/dL Creatinine 0.4 L (0.5-0.9) mg/dL POC Glucose 250 H 188 H (70-110) mg/dL Random Glucose 73 L (74-109) mg/dL Calcium (8.6-10.0) mg/dL 07/26/17 07/26/17 07/27/17 Range/Units 15:16 21:06 06:05 Potassium 3.1 L (3.4-4.5) mmol/L Carbon Dioxide 30.0 H (22-29) mmol/L BUN 4 L (6-20) mg/dL Creatinine 0.4 L (0.5-0.9) mg/dL POC Glucose 191 H 231 H (70-110) mg/dL Random Glucose 248 H (74-109) mg/dL Calcium (8.6-10.0) mg/dL 07/27/17 Range/Units 07:39 Potassium (3.4-4.5) mmol/L Carbon Dioxide (22-29) mmol/L BUN (6-20) mg/dL Creatinine (0.5-0.9) mg/dL POC Glucose 216 H (70-110) mg/dL Random Glucose (74-109) mg/dL Calcium (8.6-10.0) mg/dL Condition at Discharge: (2) Stable Discharge Diagnosis: Hyperglycemia, subcutaneous infected wounds of bilateral lower extremities VTE Discharge VTE Reason For No Overlap Therapy: Not Indicated Discharge Medications - Discharge Medications Home Medications: Ambulatory Orders Hydrocortisone 10 mg PO BID 04/12/14 [Last Taken 05/18/17] Duloxetine HCl [Cymbalta] 60 mg PO BID 06/03/14 [Last Taken 05/18/17] Insulin Lispro [Humalog] 10 units SQ WMEALS 09/14/15 [Last Taken 05/18/17] Oxycodone HCl/Acetaminophen [Percocet 10mg/325mg] 1 tab PO Q6H PRN 04/16/16 [ Last Taken 05/18/17] Pregabalin [Lyrica] 150 mg PO BID 04/16/16 [Last Taken 05/18/17] Enoxaparin Sodium [Lovenox] 120 mg SQ DAILY 08/02/16 [Last Taken 05/18/17] Fluticasone/Salmeterol [Advair 500-50 Diskus] 1 each IH BID 11/30/16 [Last Taken 05/18/17] Ipratropium/Albuterol [Duoneb] 3 ml INH ASDIR 11/30/16 [Last Taken 05/18/17] Lamotrigine 25 mg PO DAILY 11/30/16 [Last Taken 05/18/17] Trazodone HCl 150 mg PO QHS 11/30/16 [Last Taken 05/18/17] Albuterol Sulfate 0.083% [Neb] 3 ml NEB .EVERY 4-6 HOURS PRN 04/16/17 [Last Taken 05/18/17] Alprazolam 0.5 mg PO BID PRN 04/16/17 [Last Taken 05/18/17] Ondansetron [Zofran Odt] 4 mg PO Q8H 04/16/17 [Last Taken 05/18/17] Insulin Detemir [Levemir Flextouch] 25 unit SQ BID syringe 07/27/17 [Last Taken Unknown] Discharge Plan - Discharge Instructions Activity at Discharge: Increase Activity as Tolerated Diet at Discharge: Diabetic Diet Instructions: Diabetic Ketoacidosis (DC) Additional Instructions: Appointments have been scheduled for you as follows: [facility] for IV antibiotics: Friday 07/28 at 9:00AM [facility], [address] [place] [id number] on [address]st floor of [facility] off of [facility] They will schedule the rest of your infusion appointments at this appointment. Dr. Lorne Krause, Infectious Disease: Sunday 07/30 at 10:30AM [address], [place] [address], Please call Dr. Billy's office on Saturday (07/29) to schedule a hospitalization follow up appointment within 5-7 days Return to the ED if your symptoms worsen, if your blood glucose is lower than 100, higher than 400, or if you develop a fever, confusion, nausea/vomiting. Quality Measures - Quality Measures Quality Measures: Documentation of Current Medications in Medical Record, Screening for High Blood Pressure and F/U Documented - Current Medications Quality Measure: Measure #130: Documentation of Current Medications Documentation of Current Medications: <Current Medications Documented/Reviewed> [G8427] - Blood Pressure Screening Quality Measure: Screening for High Blood Pressure and Follow-Up Documented Does Patient Have Any of the Following: Active Dx of HTN Blood Pressure Classification: Pre-Hypertensive BP Reading Systolic Measurement: 160 Diastolic Measurement: 82 Screening for High Blood Pressure: Patient Exclusion, Hx of HTN [G9744] - Elder Abuse Suspicion Index EASI Reference Information: Lizzette REDMOND, Kirsten C, Shannan D, Suresh Espinoza.Development and validation of a tool to assist physicians identification of elder abuse: The Elder Abuse Suspicion Index (EASI ). Journal of Elder Abuse and Neglect, 2008; 20 (3): 276-300.
[2017-07-27] MEDS: LEVEMIR FLEXTOUCH 100 UNIT/ML INSULIN PEN SQ SCH (12:26)
[2017-07-27] MEDS: HYDROCORTISONE 10 MG PO SCH (12:31)
[2017-07-27] MEDS: HEPARIN SODIUM FLUSH 100 UNITS/ML SYR 5ML IVP PRN (13:50)
== END 2017-07-27 14:10 | disposition home or self-care (01) | DRG 638 ==
LOC: ER 20:49 → MEDSURG 07-25 02:32 → UNDODISOB 07-25 09:15 → OBSVTOIN 07-25 10:23
PROVIDERS: ADMIT Internal Medicine; ATTEND Internal Medicine
DX: E11.65 Type 2 diabetes mellitus with hyperglycemia (principal); R42 Dizziness and giddiness; E11.10 Type 2 diabetes mellitus with ketoacidosis without coma; E27.1 Primary adrenocortical insufficiency; J45.909 Unspecified asthma, uncomplicated; G62.9 Polyneuropathy, unspecified; Z79.4 Long term (current) use of insulin; F31.9 Bipolar disorder, unspecified; L08.9 Local infection of the skin and subcutaneous tissue, unspecified; J44.9 Chronic obstructive pulmonary disease, unspecified; Z86.718 Personal history of other venous thrombosis and embolism; I10 Essential (primary) hypertension; D64.9 Anemia, unspecified; M19.90 Unspecified osteoarthritis, unspecified site; Z86.14 Personal history of Methicillin resistant Staphylococcus aureus infection; Z86.711 Personal history of pulmonary embolism; Z86.73 Personal history of transient ischemic attack (TIA), and cerebral infarction without residual deficits; Z87.891 Personal history of nicotine dependence
CPT/HCPCS: 83735; 82800 ×2; 85025; 84681; 80048 ×2; 80053; 36416 ×4; 82009; 82948 ×4; 81003; J2405 ×2; J1815; 71045; 96365; 96366; 96374; 96375; 99223; 99233; 99239; 99285; J0780; J0878; J1650; J7030

== ENCOUNTER 2017-07-30 23:41 | Emergency (ER) | payer MEDICARE ==
--- NOTE | 2017-07-31 00:09 | Emergency Department Record ---
History of Present Illness - General Chief Complaint: Wound, check Stated Complaint: PICC LINE EVALUATION Time Seen by Provider: 07/31/17 00:03 Source: Patient Mode of arrival: Ambulatory Limitations: No limitations - History of Present Illness Initial Comments: 47 yo female presents to ED for evaluation of her PICC line. Patient reports that her dressing "feels tight", denies fevers, chills, or surrounding erythema. Patient spoke with nursing staff on the med-surg floor who asked the patient to come in for evaluation. Patient reports that she is receiving Cubicin for chronic lower extremity diabetic wounds. MD Complaint: Other Onset/Timin -: Days(s) Initial Visit For: Other Returns Today for: Other Associated Symptoms: Other Treatments Prior to Arrival: Dressings, Other medications, Other - Related Data Previous Rx's Medication Instructions Recorded Insulin Detemir [Levemir Flextouch] 25 unit SQ BID syringe 07/27/17 Allergies Allergy/AdvReac Type Severity Reaction Status Date / Time No Known Drug Allergies Allergy Verified 07/24/17 21:12 Travel Screening - Travel/Exposure Within Last 30 Days Have you traveled within the last 30 days?: No - Travel Symptoms Symptom Screening: None Review of Systems Constitutional: Denies: Chills, Fever, Malaise, Night sweats Eyes: Denies: Eye discharge, Eye pain ENT: Denies: Congestion, Ear pain, Epistaxis Respiratory: Denies: Cough, Dyspnea Cardiovascular: Denies: Chest pain, Dyspnea on exertion Endocrine: Denies: Fatigue, Heat or cold intolerance Gastrointestinal: Denies: Abdominal pain, Nausea, Vomiting Genitourinary: Denies: Incontinence, Retention Musculoskeletal: Denies: Arthralgia, Back pain Skin: Denies: Bruising, Change in color Neurological: Denies: Abnormal gait, Confusion, Headache, Seizure Psychiatric: Denies: Anxiety Hematological/Lymphatic: Denies: Anemia, Blood Clots Past Medical History - SOCIAL HISTORY Smoking Status: Former smoker Alcohol Use: None Drug Use: None - RESPIRATORY Hx Respiratory Disorders: Yes Hx Asthma: Yes Hx COPD: Yes Hx Pulmonary Embolism: Yes Hx Sleep Apnea: Yes - CARDIOVASCULAR Hx Cardio Disorders: Yes Hx Deep Vein Thrombosis: Yes (hx PE/DVT rt leg) Hx Edema: Yes Hx Hypertension: Yes Hx Irregular Heartbeat: Yes (occas tachycardia (SVT)) Hx Palpitations: Yes Hx Vascular Disease: Yes - NEURO Hx Neuro Disorders: Yes Hx Headaches: Yes (intermittent ROSS) Hx Neuropathy: Yes (feet) Hx TIA: Yes (summer 2016) - GI Hx GI Disorders: Yes Hx Abdominal Pain: Yes Hx Nausea/Vomiting: Yes Hx Pancreatitis: Yes - Hx Genitourinary Disorders: No Comment:: had tubal ligation 2003 - ENDOCRINE Hx Endocrine Disorders: Yes Hx Diabetes: Yes Comment:: has addisons disease - MUSCULOSKELETAL Hx Musculoskeletal Disorders: Yes Hx Arthritis: Yes - PSYCH Hx Psych Problems: Yes Hx Anxiety: Yes Hx Depression: Yes - HEMATOLOGY/ONCOLOGY Hx Hematology/Oncology Disorders: Yes Hx Anemia: Yes Hx Clotting Problems: Yes Hx Blood Transfusions: Yes Family Medical History Any Significant Family History?: Yes Hx Cancer: Grandparents Hx Heart Disease: Grandparents Hx HTN: Mother Hx Seizures: Mother Physical Exam - General General Appearance: Alert, Oriented x3, Cooperative, No acute distress, Other ( resting comfortably on her Ipad) Limitations: No limitations - Head Head exam: Atraumatic, Normocephalic, Normal inspection Head exam detail: negative: Abrasion, Contusion, Dodd's sign, General tenderness, Hematoma, Laceration - Eye Eye exam: Normal appearance. negative: Conjunctival injection, Periorbital swelling, Periorbital tenderness, Scleral icterus - ENT Ear exam: negative: Auricular hematoma, Auricular trauma Nasal Exam: negative: Active bleeding, Discharge, Dried blood, Foreign body Mouth exam: negative: Drooling, Laceration, Muffled voice, Tongue elevation - Neck Neck exam: Normal inspection. negative: Meningismus, Tenderness - Respiratory Respiratory exam: Normal lung sounds bilaterally. negative: Rales, Respiratory distress, Rhonchi, Stridor - Cardiovascular Cardiovascular Exam: Regular rate, Normal rhythm, Normal heart sounds - GI/Abdominal GI/Abdominal exam: Soft. negative: Rebound, Rigid, Tenderness - Rectal Rectal exam: Deferred - exam: Deferred - Extremities Extremities exam: Other (PICC line right upper extremity, no clinical signs of infection on examination, flushes well on exam as well.). negative: Calf tenderness, Pedal edema, Tenderness - Back Back exam: Denies: CVA tenderness (R), CVA tenderness (L) - Neurological Neurological exam: Alert, Normal gait, Oriented X3 - Psychiatric Psychiatric exam: Normal affect, Normal mood - Skin Skin exam: Normal color. negative: Abrasion Type of lesion: negative: abrasion Course Vital Signs 07/30/17 23:53 Temperature 97.9 F Pulse Rate [ 120 H Pulse Ox Probe] Respiratory 20 Rate Blood Pressure 134/103 [Left Arm] Pulse Ox 96 - Reevaluation(s) Reevaluation #1: 07/31/17 00:08 Patient's PICC line site does not appear infected on examination, will have nursing staff change her dressing as she reports that it "feels tight", appears stable for discharge following her dressing change. Disposition Disposition: Discharge Clinical Impression: PIC line (peripherally inserted central catheter) flush Disposition: Home, Self-Care Condition: (2) Stable Instructions: Peripherally Inserted Central Catheters and Midline Catheters (ED ) Additional Instructions: Return to ED if your symptoms worsen or if you have any concerns. Follow-up with your ID specialist as scheduled. Time of Disposition: 00:10 Quality - Quality Measures Quality Measures: N/A - Blood Pressure Screening Does Patient Have Any of the Following: Active Dx of HTN Blood Pressure Classification: Hypertensive Reading Systolic Measurement: 134 Diastolic Measurement: 103 Screening for High Blood Pressure: Patient Exclusion, Hx of HTN [G9744]
== END 2017-07-31 00:33 | disposition home or self-care (01) ==
LOC: ER 23:41
DX: Z45.2 Encounter for adjustment and management of vascular access device (principal); E11.622 Type 2 diabetes mellitus with other skin ulcer; L08.9 Local infection of the skin and subcutaneous tissue, unspecified; I10 Essential (primary) hypertension; Z87.891 Personal history of nicotine dependence; Z79.4 Long term (current) use of insulin
CPT/HCPCS: 99282

== ENCOUNTER 2017-10-27 09:22 | Emergency (ER) | payer MEDICARE ==
--- NOTE | 2017-10-27 09:46 | Emergency Department Record ---
History of Present Illness - General Chief complaint: Rash Stated complaint: ITCH, BROKEN OUT/ OVERALL NOT FEELING WELL Time Seen by Provider: 10/27/17 09:38 Source: Patient Mode of Arrival: Ambulatory Limitations: No limitations - History of Present Illness Initial comments: The patient is here due to not feeling well for 3 days ever since she had an MRI with contrast. Since she has had itching all over with nausea and vomiting. She denies any CP, SOB, AP or diarrhea. The patient also states she had a rash break out over the dorsal arms and legs and she has been itching it a lot. complaint: Rash Onset/Timin -: Days(s) Hx Tetanus Toxoid Vaccination: Yes (2012) Year of Tetanus Vaccination: 2012 Location: Generalized Severity scale (1-10): 7 Consistency: Constant Improves with: None Worsens with: None Context: Other Associated symptoms: Itching, Nausea, Vomiting Treatments Prior to Arrival: None - Related Data Previous Rx's Medication Instructions Recorded Insulin Detemir [Levemir Flextouch] 25 unit SQ BID syringe 07/27/17 Allergies Allergy/AdvReac Type Severity Reaction Status Date / Time No Known Drug Allergies Allergy Verified 07/24/17 21:12 Travel Screening - Travel/Exposure Within Last 30 Days Have you traveled within the last 30 days?: No Review of Systems Constitutional: Denies: Chills, Fever Eyes: Denies: Eye discharge ENT: Denies: Congestion Respiratory: Denies: Cough, Dyspnea, Hemoptysis Past Medical History - SOCIAL HISTORY Smoking Status: Former smoker Alcohol Use: None Drug Use: None - RESPIRATORY Hx Respiratory Disorders: Yes Hx Asthma: Yes Hx COPD: Yes Hx Pulmonary Embolism: Yes Hx Sleep Apnea: Yes - CARDIOVASCULAR Hx Cardio Disorders: Yes Hx Deep Vein Thrombosis: Yes (hx PE/DVT rt leg) Hx Edema: Yes Hx Hypertension: Yes Hx Irregular Heartbeat: Yes (occas tachycardia (SVT)) Hx Palpitations: Yes Hx Vascular Disease: Yes - NEURO Hx Neuro Disorders: Yes Hx Headaches: Yes (intermittent ROSS) Hx Neuropathy: Yes (feet) Hx TIA: Yes (summer 2016) - GI Hx GI Disorders: Yes Hx Abdominal Pain: Yes Hx Nausea/Vomiting: Yes Hx Pancreatitis: Yes - Hx Genitourinary Disorders: No Comment:: had tubal ligation 2003 - ENDOCRINE Hx Endocrine Disorders: Yes Hx Diabetes: Yes Comment:: has addisons disease - MUSCULOSKELETAL Hx Musculoskeletal Disorders: Yes Hx Arthritis: Yes - PSYCH Hx Psych Problems: Yes Hx Anxiety: Yes Hx Depression: Yes - HEMATOLOGY/ONCOLOGY Hx Hematology/Oncology Disorders: Yes Hx Anemia: Yes Hx Clotting Problems: Yes Hx Blood Transfusions: Yes Family Medical History Any Significant Family History?: Yes Hx Cancer: Grandparents Hx Heart Disease: Grandparents Hx HTN: Mother Hx Seizures: Mother Physical Exam - General General Appearance: Alert, Oriented x3, Cooperative, No acute distress - Head Head exam: Atraumatic, Normocephalic, Normal inspection - Eye Eye exam: Normal appearance, PERRL - ENT Throat exam: Normal inspection. negative: Tonsillar erythema, Tonsillar exudate - Neck Neck exam: Normal inspection, Full ROM. negative: Tenderness - Respiratory Respiratory exam: Normal lung sounds bilaterally. negative: Respiratory distress - Cardiovascular Cardiovascular Exam: Regular rate, Normal rhythm, Normal heart sounds - GI/Abdominal GI/Abdominal exam: Soft, Normal bowel sounds. negative: Tenderness - Extremities Extremities exam: Full ROM. negative: Normal inspection (There are exorciated lesions over the dorsal legs and forearms from the patient picking sores. There are no areas that appear to be cellulitic.) - Neurological Neurological exam: Alert. negative: Motor sensory deficit Course Vital Signs 10/27/17 09:34 Temperature 98.2 F Pulse Rate [ 106 H Pulse Ox Probe] Respiratory 20 Rate Blood Pressure 129/83 [Left Arm] Pulse Ox 95 - Reevaluation(s) Reevaluation #1: The patient is feeling better at this time. Her nausea and itching have resolved. 10/27/17 10:16 Reevaluation #2: The patient is doing a lot better at this time. She states her nausea is still much better and she no longer is itching. She denies any significant AP and is not requesting any pain medicines. I did discuss the lab results and CT results and due to the liver enzymes and obstructive liver picture I did recommend hospital admission to a larger hospital. The patient did request transfer to [facility] so we will initiate that plan. 10/27/17 11:31 Reevaluation #3: The patient is doing better and her recheck Glucose was 333. I did discuss the case with [place]. Alcazar [place] [facility] [place] the patient for admission in transfer. 10/27/17 12:08 Medical Decision Making - Data Complexity MDM Data: Labs Ordered and/or Reviewed, X-Ray Ordered and/or Reviewed - Lab Data Result diagrams: 10/27/17 09:50 10/27/17 09:50 Lab Results 10/27/17 Range/Units 09:35 POC Glucose 430 H (70-110) mg/dL - Radiology Data Radiology results: Report reviewed (Abd CT: Neg for any acute changes.) Disposition Disposition: Transfer Clinical Impression: Hepatitis Disposition: Acute Care Hospital [place] [facility] [place] For Transfer: GI Accepting Physician: Inge Time Discussed w/Accepting Physician: 07:22 Condition: (2) Stable Instructions: Hepatitis A (ED) Forms: Patient Portal Access Time of Disposition: 12:10 Quality - Quality Measures Quality Measures: N/A - Blood Pressure Screening View Details: Yes Does Patient Have Any of the Following: No Blood Pressure Classification: Hypertensive Reading Systolic Measurement: 144 Diastolic Measurement: 79 Screening for High Blood Pressure: < First Hypertensive BP, F/U Documented > [ G8950] First Hypertensive Follow-up Interventions: Referral to alternative/primary care provider.
[2017-10-27] MEDS: ONDANSETRON HCL IV 4 MG/2 ML VIAL IV ONE (09:54)
[2017-10-27] MEDS: 0.9 % SODIUM CHLORIDE 1,000 ML BAG IV ONE (09:54)
[2017-10-27 10:01] LABS: BASO % 0.8 % (0-6); EOS % 11.2 % (0-6); GRAN % 53.3 % (47-80); HEMATOCRIT 45.6 % (35.0-47.0); HEMOGLOBIN 15.7 gm/dl (11.6-16.0); LYMPH % 25.9 % (16-45); MEAN CELL VOLUME 84.9 fl (81-97); MEAN CORPUSCULAR HEMOGLOBIN 29.2 pg (27-33); MEAN CORPUSCULAR HGB CONC 34.4 g/dl (32-36); MEAN PLATELET VOLUME 10.6 fl (7.4-10.4); MONO % 8.8 % (0-9); PLATELET COUNT 171 K/uL (130-400); RED BLOOD COUNT 5.37 M/uL (3.80-5.40); RED CELL DISTRIBUTION WIDTH 12.9 % (11.5-14.5); WHITE BLOOD COUNT W/O DIFF 3.7 K/uL (4.2-12.2)
[2017-10-27 10:10] LABS: ACETONE,SERUM NEGATIVE (NEGATIVE)
[2017-10-27 10:15] LABS: BLOOD UREA NITROGEN 6 mg/dL (6-20); CREATININE 0.4 mg/dL (0.5-0.9); EST GLOMERULAR FILTRATION RATE > 60 mL/min
[2017-10-27 10:16] LABS: TOTAL PROTEIN 6.9 g/dL (6.6-8.7)
[2017-10-27 10:20] LABS: ALBUMIN 3.7 g/dL (4.0-5.0); BILIRUBIN,DIRECT 1.1 mg/dL (0-0.3)
[2017-10-27 10:21] LABS: ALKALINE PHOSPHATASE 242 U/L (35-104); LIPASE 198 U/L (13-60)
[2017-10-27 10:33] LABS: ALT/SGPT 799 U/L (<33); AST/SGOT 880 U/L (10.0-35.0); GLUCOSE,RANDOM 554 mg/dL (74-109)
[2017-10-27] MEDS: HUMULIN R 100 UNIT/ML VIAL IV ONE (10:47)
[2017-10-27 11:04] LABS: URINE APPEARANCE CLEAR; URINE BILIRUBIN NEGATIVE (NEGATIVE); URINE BLOOD NEGATIVE (NEGATIVE); URINE COLOR YELLOW; URINE KETONE TRACE (NEGATIVE); URINE LEUKOCYTE ESTERASE NEGATIVE (NEGATIVE); URINE NITRITE NEGATIVE (NEGATIVE); URINE PROTEIN NEGATIVE (NEGATIVE)
[2017-10-27 11:07] LABS: URINE GLUCOSE (UA) >=1000 mg/dL (NEGATIVE)
[2017-10-27] MEDS: HYDROMORPHONE HCL 2 MG/ML VIAL IVP ONE ×2 (11:53→13:47)
--- NOTE | 2017-10-28 07:37 | CT SCAN REPORT ---
EXAM: CT OF THE ABDOMEN AND PELVIS WITHOUT CONTRAST HISTORY: RIGHT SIDED PAIN. TECHNIQUE: CT of the abdomen and pelvis was performed without oral or IV contrast. This limits evaluation of bowel and solid visceral organs. Comparison: 02/16/14 CT. FINDINGS: Limited evaluation of the lung bases is unremarkable. The osseous structures are grossly intact. Limited evaluation of the liver, spleen, adrenal glands, and pancreas is unremarkable. Inferior vena cava filter in place. Status post cholecystectomy. No definitive urinary tract calculus or hydronephrosis. Post surgical changes in the posterior right perinephric region , similar to the prior exam. No gross evidence for bowel obstruction. No free air or free fluid. Surgical clips in the abdomen and pelvis. IMPRESSION: NEGATIVE FOR ACUTE INTRAABDOMINAL/PELVIC PROCESS. POST SURGICAL CHANGE ABOVE. JOB NUMBER: [id number] MTDD
--- NOTE | 2017-11-01 19:27 | Emergency Department Record ---
History of Present Illness - General Chief complaint: Rash Stated complaint: ITCH, BROKEN OUT/ OVERALL NOT FEELING WELL Time Seen by Provider: 10/27/17 09:38 Source: Patient Mode of Arrival: Ambulatory Limitations: No limitations - History of Present Illness MD complaint: Rash Onset/Timin -: Days(s) Hx Tetanus Toxoid Vaccination: Yes (2012) Year of Tetanus Vaccination: 2012 Location: Generalized Severity scale (1-10): 7 Consistency: Constant Improves with: None Worsens with: None Context: Other Associated symptoms: Itching, Nausea, Vomiting Treatments Prior to Arrival: None - Related Data Previous Rx's Medication Instructions Recorded Insulin Detemir [Levemir Flextouch] 25 unit SQ BID syringe 07/27/17 Allergies Allergy/AdvReac Type Severity Reaction Status Date / Time No Known Drug Allergies Allergy Verified 07/24/17 21:12 Travel Screening - Travel/Exposure Within Last 30 Days Have you traveled within the last 30 days?: No Review of Systems Constitutional: Denies: Chills, Fever Eyes: Denies: Eye discharge ENT: Denies: Congestion Respiratory: Denies: Cough, Dyspnea, Hemoptysis Cardiovascular: Denies: Arrhythmia Endocrine: Denies: Fatigue Gastrointestinal: Denies: Abdominal pain Genitourinary: Denies: Dysuria Musculoskeletal: Denies: Arthralgia Neurological: Denies: Abnormal gait Psychiatric: Reports: Anxiety Past Medical History - SOCIAL HISTORY Smoking Status: Former smoker Alcohol Use: None Drug Use: None - RESPIRATORY Hx Respiratory Disorders: Yes Hx Asthma: Yes Hx COPD: Yes Hx Pulmonary Embolism: Yes Hx Sleep Apnea: Yes - CARDIOVASCULAR Hx Cardio Disorders: Yes Hx Deep Vein Thrombosis: Yes (hx PE/DVT rt leg) Hx Edema: Yes Hx Hypertension: Yes Hx Irregular Heartbeat: Yes (occas tachycardia (SVT)) Hx Palpitations: Yes Hx Vascular Disease: Yes - NEURO Hx Neuro Disorders: Yes Hx Headaches: Yes (intermittent ROSS) Hx Neuropathy: Yes (feet) Hx TIA: Yes (summer 2016) - GI Hx GI Disorders: Yes Hx Abdominal Pain: Yes Hx Nausea/Vomiting: Yes Hx Pancreatitis: Yes - Hx Genitourinary Disorders: No Comment:: had tubal ligation 2003 - ENDOCRINE Hx Endocrine Disorders: Yes Hx Diabetes: Yes Comment:: has addisons disease - MUSCULOSKELETAL Hx Musculoskeletal Disorders: Yes Hx Arthritis: Yes - PSYCH Hx Psych Problems: Yes Hx Anxiety: Yes Hx Depression: Yes - HEMATOLOGY/ONCOLOGY Hx Hematology/Oncology Disorders: Yes Hx Anemia: Yes Hx Clotting Problems: Yes Hx Blood Transfusions: Yes Family Medical History Any Significant Family History?: Yes Hx Cancer: Grandparents Hx Heart Disease: Grandparents Hx HTN: Mother Hx Seizures: Mother Physical Exam - General Limitations: No limitations Course Vital Signs 10/27/17 10/27/17 10/27/17 09:34 12:05 13:50 Temperature 98.2 F 97.9 F 97.5 F L Pulse Rate [ 106 H 88 88 Pulse Ox Probe] Respiratory 20 16 20 Rate Blood Pressure 129/83 131/73 144/79 [Left Arm] Pulse Ox 95 93 L 96 Medical Decision Making - Lab Data Result diagrams: 10/27/17 09:50 10/27/17 09:50 Lab Results 10/27/17 10/27/17 10/27/17 Range/Units 09:35 09:50 09:50 WBC 3.7 L (4.2-12.2) K/uL RBC 5.37 (3.80-5.40) M/uL Hgb 15.7 (11.6-16.0) gm/dl Hct 45.6 (35.0-47.0) % MCV 84.9 (81-97) fl MCH 29.2 (27-33) pg MCHC 34.4 (32-36) g/dl RDW 12.9 (11.5-14.5) % Plt Count 171 (130-400) K/uL MPV 10.6 H (7.4-10.4) fl Gran % 53.3 (47-80) % Lymphocytes % 25.9 (16-45) % Monocytes % 8.8 (0-9) % Eosinophils % 11.2 H (0-6) % Basophils % 0.8 (0-6) % Sodium 133 L (136-145) mmol/L Potassium 4.0 (3.4-4.5) mmol/L Chloride 94 L (98-107) mmol/L Carbon Dioxide 25.0 (22-29) mmol/L Anion Gap 14.0 (7-16) BUN 6 (6-20) mg/dL Creatinine 0.4 L (0.5-0.9) mg/dL Estimated GFR > 60 mL/min POC Glucose 430 H (70-110) mg/dL Random Glucose 554 H* (74-109) mg/dL Calcium 8.6 (8.6-10.0) mg/dL Total Bilirubin 1.60 H (0.2-1.0) mg/dL Direct Bilirubin 1.1 H (0-0.3) mg/dL AST 880 H (10.0-35.0) U/L ALT 799 H (<33) U/L Alkaline Phosphatase 242 H (35-104) U/L Total Protein 6.9 (6.6-8.7) g/dL Albumin 3.7 L (4.0-5.0) g/dL Lipase 198 H (13-60) U/L Urine Color Urine Appearance Urine pH (5.0-8.0) Ur Specific [place] (1.002-1.030) Urine Protein (NEGATIVE) Urine Glucose (UA) (NEGATIVE) Urine Ketones (NEGATIVE) Urine Blood (NEGATIVE) Urine Nitrite (NEGATIVE) Urine Bilirubin (NEGATIVE) Urine Urobilinogen (0.20 - 1.00) E.U./dL Ur Leukocyte Esterase (NEGATIVE) Acetone, Qual Negative (NEGATIVE) 10/27/17 10/27/17 Range/Units 11:00 12:04 WBC (4.2-12.2) K/uL RBC (3.80-5.40) M/uL Hgb (11.6-16.0) gm/dl Hct (35.0-47.0) % MCV (81-97) fl MCH (27-33) pg MCHC (32-36) g/dl RDW (11.5-14.5) % Plt Count (130-400) K/uL MPV (7.4-10.4) fl Gran % (47-80) % Lymphocytes % (16-45) % Monocytes % (0-9) % Eosinophils % (0-6) % Basophils % (0-6) % Sodium (136-145) mmol/L Potassium (3.4-4.5) mmol/L Chloride (98-107) mmol/L Carbon Dioxide (22-29) mmol/L Anion Gap (7-16) BUN (6-20) mg/dL Creatinine (0.5-0.9) mg/dL Estimated GFR mL/min POC Glucose 344 H (70-110) mg/dL Random Glucose (74-109) mg/dL Calcium (8.6-10.0) mg/dL Total Bilirubin (0.2-1.0) mg/dL Direct Bilirubin (0-0.3) mg/dL AST (10.0-35.0) U/L ALT (<33) U/L Alkaline Phosphatase (35-104) U/L Total Protein (6.6-8.7) g/dL Albumin (4.0-5.0) g/dL Lipase (13-60) U/L Urine Color Yellow Urine Appearance Clear Urine pH 6.0 (5.0-8.0) Ur Specific [place] 1.010 (1.002-1.030) Urine Protein Negative (NEGATIVE) Urine Glucose (UA) >=1000 mg/dl H (NEGATIVE) Urine Ketones Trace H (NEGATIVE) Urine Blood Negative (NEGATIVE) Urine Nitrite Negative (NEGATIVE) Urine Bilirubin Negative (NEGATIVE) Urine Urobilinogen 1.0 (0.20 - 1.00) E.U./dL Ur Leukocyte Esterase Negative (NEGATIVE) Acetone, Qual (NEGATIVE) Disposition Clinical Impression: Hepatitis Disposition: Acute Care Hospital Transfer Condition: (2) Stable Instructions: Hepatitis A (ED) Forms: Patient Portal Access Quality - Quality Measures Quality Measures: N/A - Blood Pressure Screening View Details: Yes Does Patient Have Any of the Following: No Blood Pressure Classification: Hypertensive Reading Systolic Measurement: 144 Diastolic Measurement: 79 Screening for High Blood Pressure: < First Hypertensive BP, F/U Documented > [ G8950] First Hypertensive Follow-up Interventions: Referral to alternative/primary care provider.
== END 2017-10-27 15:11 | disposition short-term general hospital (02) ==
LOC: ER 09:22
DX: K75.9 Inflammatory liver disease, unspecified (principal); L98.9 Disorder of the skin and subcutaneous tissue, unspecified; R11.2 Nausea with vomiting, unspecified; R51 Headache; J44.9 Chronic obstructive pulmonary disease, unspecified; E11.9 Type 2 diabetes mellitus without complications; Z79.4 Long term (current) use of insulin; I10 Essential (primary) hypertension; Z87.891 Personal history of nicotine dependence
CPT/HCPCS: 36416; 74176; 80048; 80076; 81003; 82009; 82948; 83690; 85025; 96361; 96374; 96375; 96376; 99285; J2405; J7030

== ENCOUNTER 2017-12-27 14:05 | Emergency (ER) | payer MEDICARE, MEDICAID ==
[2017-12-27] MEDS ORDERED: CLINDAMYCIN 150 MG CAP PO ONE (14:32)
--- NOTE | 2017-12-27 14:32 | Emergency Department Record ---
History of Present Illness - General Chief complaint: Abscess Stated complaint: WOUND RT LOWER LEG /DIABETIC Time Seen by Provider: 12/27/17 14:26 Source: Patient Mode of Arrival: Ambulatory Limitations: No limitations - History of Present Illness Initial comments: 47 yo female presents with a concern about a sore that has become warm and red on her right lower leg. 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 The area was examined by her infectious disease doctor on Saturday but the warmth, redness were not present. No fevers. No chills. No pus or drainage. The area is locally tender to touch. complaint: Lesion Onset/Timin -: Days(s) Hx Tetanus Toxoid Vaccination: Yes (2012) Year of Tetanus Vaccination: 2012 Severity: Moderate Severity scale (1-10): 8 Quality: Aching Consistency: Constant, Intermittent Improves with: None Worsens with: None Context: Other (chronic skin scabs from an auto immune condition) Associated symptoms: Denies other symptoms Treatments Prior to Arrival: None - Related Data Previous Rx's Medication Instructions Recorded Insulin Detemir [Levemir Flextouch] 25 unit SQ BID syringe 07/27/17 Clindamycin HCl 300 mg PO QID #28 capsule 12/27/17 Allergies Allergy/AdvReac Type Severity Reaction Status Date / Time No Known Drug Allergies Allergy Verified 12/27/17 14:24 Travel Screening - Travel/Exposure Within Last 30 Days Have you traveled within the last 30 days?: No - Travel/Exposure Within Last Year Have you traveled outside the [place] in the last year?: No - Additonal Travel Details Have you been exposed to anyone with a communicable illness?: No - Travel Symptoms Symptom Screening: None Review of Systems Constitutional: Denies: Chills, Fever, Malaise, Weakness Eyes: Denies: Eye discharge ENT: Denies: Congestion, Throat pain Respiratory: Denies: Cough Cardiovascular: Denies: Chest pain, Syncope Endocrine: Denies: Fatigue Gastrointestinal: Denies: Abdominal pain, Diarrhea, Nausea, Vomiting Genitourinary: Denies: Dysuria, Urgency Musculoskeletal: Denies: Arthralgia, Back pain, Myalgia Skin: Reports: Lesions, Rash. Denies: Bruising Neurological: Denies: Headache Psychiatric: Denies: Anxiety Hematological/Lymphatic: Denies: Blood Clots, Easy bleeding, Easy bruising, Swollen glands Past Medical History - SOCIAL HISTORY Smoking Status: Former smoker Alcohol Use: None Drug Use: None - RESPIRATORY Hx Respiratory Disorders: Yes Hx Asthma: Yes Hx COPD: Yes Hx Pulmonary Embolism: Yes Hx Sleep Apnea: Yes - CARDIOVASCULAR Hx Cardio Disorders: Yes Hx Deep Vein Thrombosis: Yes (hx PE/DVT rt leg) Hx Edema: Yes Hx Hypertension: Yes Hx Irregular Heartbeat: Yes (occas tachycardia (SVT)) Hx Palpitations: Yes Hx Vascular Disease: Yes - NEURO Hx Neuro Disorders: Yes Hx Headaches: Yes (intermittent ROSS) Hx Neuropathy: Yes (feet) Hx TIA: Yes (summer 2016) - GI Hx GI Disorders: Yes Hx Abdominal Pain: Yes Hx Nausea/Vomiting: Yes Hx Pancreatitis: Yes - Hx Genitourinary Disorders: No Comment:: had tubal ligation 2003 - ENDOCRINE Hx Endocrine Disorders: Yes Hx Diabetes: Yes Comment:: has addisons disease - MUSCULOSKELETAL Hx Musculoskeletal Disorders: Yes Hx Arthritis: Yes - PSYCH Hx Psych Problems: Yes Hx Anxiety: Yes Hx Depression: Yes - HEMATOLOGY/ONCOLOGY Hx Hematology/Oncology Disorders: Yes Hx Anemia: Yes Hx Clotting Problems: Yes Hx Blood Transfusions: Yes Family Medical History Any Significant Family History?: No Hx Cancer: Grandparents Hx Heart Disease: Grandparents Hx HTN: Mother Hx Seizures: Mother Physical Exam - General General Appearance: Alert, Oriented x3, Cooperative, No acute distress Limitations: No limitations - Head Head exam: Atraumatic, Normal inspection - Eye Eye exam: Normal appearance. negative: Conjunctival injection - ENT ENT exam: Normal exam Ear exam: Normal external inspection Nasal Exam: Normal inspection Mouth exam: Normal external inspection - Neck Neck exam: Normal inspection - Respiratory Respiratory exam: Normal lung sounds bilaterally. negative: Respiratory distress - Cardiovascular Cardiovascular Exam: Regular rate, Normal rhythm, Normal heart sounds - GI/Abdominal GI/Abdominal exam: Soft. negative: Tenderness - Rectal Rectal exam: Deferred - exam: Deferred - Extremities Extremities exam: Full ROM, Normal capillary refill, Tenderness, Other (1-1.5 cm scabs on the arms and legs). negative: Normal inspection Image of Full Body: 1 - 8cm x 14cm erythema surrounding a central dry scab, no fluctuance - Neurological Neurological exam: Alert, Oriented X3 - Psychiatric Psychiatric exam: Normal affect, Normal mood - Skin Skin exam: Erythema Type of lesion: Rash Course Vital Signs 12/27/17 14:18 Temperature 97.9 F Pulse Rate 108 H Respiratory 20 Rate Blood Pressure 141/89 Pulse Ox 96 - Reevaluation(s) Reevaluation #1: The area of surrounding erythema was marked at 8 x 14 cm Clindamycin Rx provided We discussed at length reasons to immediately return to the ED as well as close follow up. The patient will call the PCP for close follow up of this ED visit to review this visit and the tests performed 12/27/17 14:38 Disposition Disposition: Discharge Clinical Impression: Cellulitis Qualifiers: Site of cellulitis: extremity Site of cellulitis of extremity: lower extremity Laterality: left Qualified Code(s): L03.116 - Cellulitis of left lower limb Disposition: Home, Self-Care Condition: (1) Good Instructions: Cellulitis (ED) Additional Instructions: Take the prescriptions provided today as directed. Call your family doctor. Call to schedule the next available appointment for a recheck. Return to ED if your symptoms worsen or if you have any new concerns. Review the final Emergency Record and test results with your doctor on follow up Prescriptions: Clindamycin HCl 300 mg PO QID #28 capsule Forms: Patient Portal Access Time of Disposition: 14:37 Quality - Quality Measures Quality Measures: N/A - Blood Pressure Screening Does Patient Have Any of the Following: No Blood Pressure Classification: Pre-Hypertensive BP Reading Systolic Measurement: 141 Diastolic Measurement: 89 Screening for High Blood Pressure: < Pre-Hypertensive BP, F/U Documented > [ G8950] Pre-Hypertensive Follow-up Interventions: Referral to alternative/primary care provider.
== END 2017-12-27 14:54 | disposition home or self-care (01) ==
LOC: ER 14:05
DX: L03.115 Cellulitis of right lower limb (principal); E11.9 Type 2 diabetes mellitus without complications; Z79.4 Long term (current) use of insulin; I10 Essential (primary) hypertension; J44.9 Chronic obstructive pulmonary disease, unspecified; Z87.891 Personal history of nicotine dependence
CPT/HCPCS: 99282

== ENCOUNTER 2018-01-04 15:00 | Emergency (ER) | payer MEDICARE, MEDICAID ==
[2018-01-04] MEDS ORDERED: CLINDAMYCIN 600MG/50ML PREMIX 600 MG/50 ML BAG IVPB ONE (16:07)
[2018-01-04 16:22] LABS: BASO % 0.6 % (0-6); EOS % 2.5 % (0-6); GRAN % 73.4 % (47-80); HEMATOCRIT 46.7 % (35.0-47.0); HEMOGLOBIN 15.9 gm/dl (11.6-16.0); LYMPH % 16.9 % (16-45); MEAN CELL VOLUME 83.4 fl (81-97); MEAN PLATELET VOLUME 10.1 fl (7.4-10.4); MONO % 6.6 % (0-9); PLATELET COUNT 187 K/uL (130-400); WHITE BLOOD COUNT W/O DIFF 6.9 K/uL (4.2-12.2)
[2018-01-04 16:24] LABS: MEAN CORPUSCULAR HEMOGLOBIN 28.3 pg (27-33)
[2018-01-04 16:35] LABS: BLOOD UREA NITROGEN 7 mg/dL (6-20); CREATININE 0.4 mg/dL (0.5-0.9); EST GLOMERULAR FILTRATION RATE > 60 mL/min
[2018-01-04 16:36] LABS: TOTAL PROTEIN 7.4 g/dL (6.6-8.7)
[2018-01-04 16:38] LABS: GLUCOSE,RANDOM 399 mg/dL (74-109)
[2018-01-04 16:40] LABS: ALB/GLOB RATIO 1.2 (1.1-1.8); ALBUMIN 4.1 g/dL (4.0-5.0); ALT/SGPT 21 U/L (<33); AST/SGOT 19 U/L (10.0-35.0)
[2018-01-04 16:41] LABS: ALKALINE PHOSPHATASE 101 U/L (35-104)
[2018-01-04 17:35] LABS: ACETONE,SERUM NEGATIVE (NEGATIVE)
[2018-01-04] MEDS ORDERED: HUMULIN R 100 UNIT/ML VIAL SQ ONE (17:38)
--- NOTE | 2018-01-04 17:49 | Emergency Department Record ---
History of Present Illness - General Chief complaint: Extremity Problem Stated complaint: SORE ON RT LEG AND BS IS HIGH Time Seen by Provider: 01/04/18 15:57 Source: Patient Mode of Arrival: Ambulatory Limitations: No limitations - History of Present Illness Initial comments: pt has been dealing w a cellulitis on her extremity. she is scheduled to see inf disease on mon. she was seen in er earlier in the week and was started on clindamycin. she stopped taking it because it was making her vomit. the erythema is improving. she come tonight because the pain is so severe and her blood sugars are so high MD Complaint: Extremity pain Onset/Timin -: Days(s) Location: Left, Right, Lower Leg Severity scale (1-10): 8 Quality: Aching, Burning Consistency: Constant Improves with: Nothing Worsens with: Nothing Associated Symptoms: Denies other symptoms - Related Data Previous Rx's Medication Instructions Recorded Insulin Detemir [Levemir Flextouch] 25 unit SQ BID syringe 07/27/17 Allergies Allergy/AdvReac Type Severity Reaction Status Date / Time No Known Drug Allergies Allergy Verified 12/27/17 14:24 Travel Screening - Travel/Exposure Within Last 30 Days Have you traveled within the last 30 days?: No Review of Systems Reviewed: No additional complaints except as noted below Constitutional: Reports: As per HPI. Denies: Chills, Fever, Malaise, Night sweats, Weakness, Weight change Eyes: Reports: As per HPI. Denies: Eye discharge, Eye pain, Photophobia, Vision change ENT: Reports: As per HPI. Denies: Congestion, Dental pain, Ear pain, Epistaxis , Hearing loss, Throat pain Respiratory: Reports: As per HPI. Denies: Cough, Dyspnea, Hemoptysis, Stridor, Wheezes Cardiovascular: Reports: As per HPI. Denies: Arrhythmia, Chest pain, Dyspnea on exertion, Edema, Murmurs, Orthopnea, Palpitations, Paroxysmal nocturnal dyspnea, Rheumatic Fever, Syncope Endocrine: Reports: As per HPI. Denies: Fatigue, Heat or cold intolerance, Polydipsia, Polyuria Gastrointestinal: Reports: As per HPI. Denies: Abdominal pain, Constipation, Diarrhea, Hematemesis, Hematochezia, Melena, Nausea, Vomiting Genitourinary: Reports: As per HPI. Denies: Abnormal menses, Discharge, Dyspareunia, Dysuria, Frequency, Hematuria, Incontinence, Retention, Urgency Musculoskeletal: Reports: As per HPI. Denies: Arthralgia, Back pain, Gout, Joint swelling, Myalgia, Neck pain Skin: Reports: As per HPI, Lesions, Rash. Denies: Bruising, Change in color, Change in hair/nails, Pruritus Neurological: Reports: As per HPI. Denies: Abnormal gait, Confusion, Headache, Numbness, Paresthesias, Seizure, Tingling, Tremors, Vertigo, Weakness Psychiatric: Reports: As per HPI. Denies: Anxiety, Auditory hallucinations, Depression, Homicidal thoughts, Suicidal thoughts, Visual hallucinations Hematological/Lymphatic: Reports: As per HPI. Denies: Anemia, Blood Clots, Easy bleeding, Easy bruising, Swollen glands Past Medical History - SOCIAL HISTORY Smoking Status: Former smoker - RESPIRATORY Hx Respiratory Disorders: Yes Hx Asthma: Yes Hx COPD: Yes Hx Pulmonary Embolism: Yes Hx Sleep Apnea: Yes - CARDIOVASCULAR Hx Cardio Disorders: Yes Hx Deep Vein Thrombosis: Yes (hx PE/DVT rt leg) Hx Edema: Yes Hx Hypertension: Yes Hx Irregular Heartbeat: Yes (occas tachycardia (SVT)) Hx Palpitations: Yes Hx Vascular Disease: Yes - NEURO Hx Neuro Disorders: Yes Hx Headaches: Yes (intermittent ROSS) Hx Neuropathy: Yes (feet) Hx TIA: Yes (summer 2016) - GI Hx GI Disorders: Yes Hx Abdominal Pain: Yes Hx Nausea/Vomiting: Yes Hx Pancreatitis: Yes - Hx Genitourinary Disorders: No Comment:: had tubal ligation 2003 - ENDOCRINE Hx Endocrine Disorders: Yes Hx Diabetes: Yes Comment:: has addisons disease - MUSCULOSKELETAL Hx Musculoskeletal Disorders: Yes Hx Arthritis: Yes - PSYCH Hx Psych Problems: Yes Hx Anxiety: Yes Hx Depression: Yes - HEMATOLOGY/ONCOLOGY Hx Hematology/Oncology Disorders: Yes Hx Anemia: Yes Hx Clotting Problems: Yes Hx Blood Transfusions: Yes Family Medical History Any Significant Family History?: Yes Hx Cancer: Grandparents Hx Heart Disease: Grandparents Hx HTN: Mother Hx Seizures: Mother Physical Exam - General General Appearance: Alert, Oriented x3, Cooperative, Mild distress - Head Head exam: Normal inspection - Eye Eye exam: Normal appearance, PERRL, EOMI Pupils: Normal accommodation - ENT ENT exam: Normal exam, Mucous membranes moist, Normal external ear exam, Normal orophraynx Ear exam: Normal external inspection. negative: External canal tenderness Nasal Exam: Normal inspection. negative: Discharge, Sinus tenderness Mouth exam: Normal external inspection, Tongue normal Teeth exam: Normal inspection. negative: Dental caries Throat exam: Normal inspection. negative: Tonsillar erythema, Tonsillar exudate - Neck Neck exam: Normal inspection, Full ROM. negative: Tenderness - Respiratory Respiratory exam: Normal lung sounds bilaterally. negative: Respiratory distress - Cardiovascular Cardiovascular Exam: Regular rate, Normal rhythm, Normal heart sounds - GI/Abdominal GI/Abdominal exam: Soft, Normal bowel sounds. negative: Tenderness - Rectal Rectal exam: Deferred - exam: Deferred - Extremities Extremities exam: Normal inspection, Full ROM, Normal capillary refill, Tenderness - Back Back exam: Reports: Normal inspection, Full ROM. Denies: Muscle spasm, Rash noted, Tenderness - Neurological Neurological exam: Alert, CN II-XII intact, Normal gait, Oriented X3 - Psychiatric Psychiatric exam: Normal affect, Normal mood - Skin Skin exam: Dry, Intact, Normal color, Warm Type of lesion: Rash Distribution of rash: Generalized, RLE, Other (pt has a generalized chronic rash and then has an ulcer on her r lower leg that has decreasing erythema and scant discharge) Course Vital Signs 01/04/18 15:11 Temperature 98.2 F Pulse Rate [ 132 H Pulse Ox Probe] Respiratory 17 Rate Blood Pressure 142/79 [Left Arm] Pulse Ox 93 L - Reevaluation(s) Reevaluation #1: 01/04/18 18:38 pt is doing better Medical Decision Making - Lab Data Result diagrams: 01/04/18 14:10 01/04/18 14:10 Lab Results 01/04/18 01/04/18 01/04/18 Range/Units 14:10 14:10 15:10 WBC 6.9 (4.2-12.2) K/uL RBC 5.60 H (3.80-5.40) M/uL Hgb 15.9 (11.6-16.0) gm/dl Hct 46.7 (35.0-47.0) % MCV 83.4 (81-97) fl MCH 28.3 (27-33) pg MCHC 34.0 (32-36) g/dl RDW 13.0 (11.5-14.5) % Plt Count 187 (130-400) K/uL MPV 10.1 (7.4-10.4) fl Gran % 73.4 (47-80) % Lymphocytes % 16.9 (16-45) % Monocytes % 6.6 (0-9) % Eosinophils % 2.5 (0-6) % Basophils % 0.6 (0-6) % VBG pH 7.26 L (7.33-7.43) Sodium 134 L (136-145) mmol/L Potassium 3.8 (3.4-4.5) mmol/L Chloride 93 L (98-107) mmol/L Carbon Dioxide 25.0 (22-29) mmol/L Anion Gap 16.0 (7-16) BUN 7 (6-20) mg/dL Creatinine 0.4 L (0.5-0.9) mg/dL Estimated GFR > 60 mL/min POC Glucose 387 H (70-110) mg/dL Random Glucose 399 H (74-109) mg/dL Calcium 9.5 (8.6-10.0) mg/dL Total Bilirubin 0.50 (0.2-1.0) mg/dL AST 19 (10.0-35.0) U/L ALT 21 (<33) U/L Alkaline Phosphatase 101 (35-104) U/L Total Protein 7.4 (6.6-8.7) g/dL Albumin 4.1 (4.0-5.0) g/dL Globulin 3.3 (1.4-4.8) gm/dL Albumin/Globulin Ratio 1.2 (1.1-1.8) Acetone, Qual Negative (NEGATIVE) Disposition Disposition: Discharge Clinical Impression: Cellulitis Qualifiers: Site of cellulitis: extremity Site of cellulitis of extremity: lower extremity Laterality: left Qualified Code(s): L03.116 - Cellulitis of left lower limb Hyperglycemia due to type 2 diabetes mellitus Qualifiers: Diabetes mellitus parts counterman insulin use: with parts counterman use Qualified Code(s): E11.65 - Type 2 diabetes mellitus with hyperglycemia; Z79.4 - nursing home (current ) use of insulin Disposition: Home, Self-Care Condition: (1) Good Instructions: Diabetic Hyperglycemia (ED), Cellulitis (ED) Additional Instructions: return tomorrow for recheck. rest. elevate leg. Forms: Patient Portal Access Quality - Quality Measures Quality Measures: N/A - Blood Pressure Screening Does Patient Have Any of the Following: No Blood Pressure Classification: Pre-Hypertensive BP Reading Systolic Measurement: 129 Diastolic Measurement: 83 Screening for High Blood Pressure: < Pre-Hypertensive BP, F/U Documented > [ G8950] Pre-Hypertensive Follow-up Interventions: Follow-up with rescreen every year.
[2018-01-04] MEDS ORDERED: 0.9 % SODIUM CHLORIDE 1,000 ML BAG IV ONE (18:31)
[2018-01-04] MEDS ORDERED: HYDROCODONE/APAP 5/325MG TABLET PO ONE (18:56)
== END 2018-01-04 19:11 | disposition home or self-care (01) ==
LOC: ER 15:00
DX: L03.116 Cellulitis of left lower limb (principal); E11.65 Type 2 diabetes mellitus with hyperglycemia; J44.9 Chronic obstructive pulmonary disease, unspecified; I10 Essential (primary) hypertension; Z79.4 Long term (current) use of insulin; Z87.891 Personal history of nicotine dependence
CPT/HCPCS: 36416; 80053; 82009; 82800; 82948; 85025; 96365; 96372; 99284; J7030

== ENCOUNTER 2018-03-10 16:21 | Emergency (ER) | payer MEDICARE, MEDICAID ==
[2018-03-10] MEDS ORDERED: HYDROMORPHONE HCL 2 MG/ML VIAL IM ONE (16:37)
[2018-03-10] MEDS ORDERED: ORPHENADRINE CITRATE 60MG/2ML VIAL IM ONE (16:40)
--- NOTE | 2018-03-10 16:42 | Emergency Department Record ---
History of Present Illness - General Chief Complaint: Back Pain/Injury Stated Complaint: BACK PAIN Time Seen by Provider: 03/10/18 16:31 Source: Patient Mode of Arrival: Ambulatory Limitations: No limitations - History of Present Illness Initial Comments: 47yo female presents with lower back pain that has gradually worsened since Saturday. She reports she has a history of L4 disc disease. She has seen a surgeon but surgery has been post posted due to elevated A1C. No fevers, falls , weakness, numbness. She does have some sharp pain into the left leg. No foot drop or weakness. No urinary symptoms, retention or incontinence. Her PCP is Dr Billy. Her spine doctor in in [place]. MD Complaint: Back pain Onset/Timin -: Days(s) Similar Symptoms Previously: Yes Place: Home Severity: Moderate Severity scale (1-10): 9 Quality: Aching Consistency: Constant Improves With: None Worsens With: None Context: Other Treatments Prior to Arrival: Other (Prescription pain medication) - Related Data Home Medications Medication Instructions Recorded Confirmed Last Taken Insulin Glargine,Hum.rec.anlog 50 unit SQ BID 03/10/18 03/10/18 03/10/18 [Lantus] Previous Rx's Medication Instructions Recorded Cyclobenzaprine HCl [Flexeril] 10 mg PO TID #20 tablet 03/10/18 Allergies Allergy/AdvReac Type Severity Reaction Status Date / Time No Known Drug Allergies Allergy Verified 03/10/18 16:30 Travel Screening - Travel/Exposure Within Last 30 Days Have you traveled within the last 30 days?: No - Travel/Exposure Within Last Year Have you traveled outside the [place] in the last year?: No - Additonal Travel Details Have you been exposed to anyone with a communicable illness?: No - Travel Symptoms Symptom Screening: None Review of Systems Constitutional: Denies: Chills, Fever, Malaise, Weakness Eyes: Denies: Eye discharge ENT: Denies: Congestion, Throat pain Respiratory: Denies: Cough, Dyspnea, Hemoptysis, Wheezes Cardiovascular: Denies: Chest pain, Palpitations, Syncope Endocrine: Denies: Fatigue, Polydipsia, Polyuria Gastrointestinal: Denies: Abdominal pain, Diarrhea, Nausea, Vomiting Genitourinary: Denies: Dysuria, Urgency Musculoskeletal: Reports: Back pain. Denies: Arthralgia, Joint swelling, Myalgia, Neck pain, Other Skin: Denies: Bruising, Change in color, Rash Neurological: Denies: Abnormal gait, Numbness, Tingling, Vertigo, Weakness Psychiatric: Denies: Anxiety Hematological/Lymphatic: Denies: Blood Clots, Easy bleeding, Easy bruising Past Medical History - SOCIAL HISTORY Smoking Status: Former smoker Alcohol Use: None Drug Use: None - RESPIRATORY Hx Respiratory Disorders: Yes Hx Asthma: Yes Hx COPD: Yes Hx Pulmonary Embolism: Yes Hx Sleep Apnea: Yes - CARDIOVASCULAR Hx Cardio Disorders: Yes Hx Deep Vein Thrombosis: Yes (hx PE/DVT rt leg) Hx Edema: Yes Hx Hypertension: Yes Hx Irregular Heartbeat: Yes (occas tachycardia (SVT)) Hx Palpitations: Yes Hx Vascular Disease: Yes - NEURO Hx Neuro Disorders: Yes Hx Headaches: Yes (intermittent ROSS) Hx Neuropathy: Yes (feet) Hx TIA: Yes (summer 2016) - GI Hx GI Disorders: Yes Hx Abdominal Pain: Yes Hx Nausea/Vomiting: Yes Hx Pancreatitis: Yes - Hx Genitourinary Disorders: No Comment:: had tubal ligation 2003 - ENDOCRINE Hx Endocrine Disorders: Yes Hx Diabetes: Yes Comment:: has addisons disease - MUSCULOSKELETAL Hx Musculoskeletal Disorders: Yes Hx Arthritis: Yes - PSYCH Hx Psych Problems: Yes Hx Anxiety: Yes Hx Depression: Yes - HEMATOLOGY/ONCOLOGY Hx Hematology/Oncology Disorders: Yes Hx Anemia: Yes Hx Clotting Problems: Yes Hx Blood Transfusions: Yes Family Medical History Any Significant Family History?: Yes Hx Cancer: Grandparents Hx Heart Disease: Grandparents Hx HTN: Mother Hx Seizures: Mother Physical Exam - General General Appearance: Alert, Oriented x3, Cooperative, No acute distress Limitations: No limitations - Head Head exam: Atraumatic, Normal inspection - Eye Eye exam: Normal appearance. negative: Conjunctival injection - ENT ENT exam: Normal exam, Mucous membranes moist, Normal external ear exam Ear exam: Normal external inspection Nasal Exam: Normal inspection Mouth exam: Normal external inspection - Neck Neck exam: Normal inspection - Respiratory Respiratory exam: Normal lung sounds bilaterally. negative: Respiratory distress - Cardiovascular Cardiovascular Exam: Regular rate, Normal rhythm, Normal heart sounds - GI/Abdominal GI/Abdominal exam: Soft. negative: Tenderness - Rectal Rectal exam: Deferred - exam: Deferred - Extremities Extremities exam: Normal inspection. negative: Pedal edema, Tenderness - Back Back exam: Reports: Muscle spasm, Paraspinal tenderness, Tenderness Image of Body Front/Back: 1 - tenderness, pain reproduced with movement, - Neurological Neurological exam: Alert, Normal gait (slow but unassisted, no foot drop), Oriented X3, Other (Lower extremity sensation intact, no foot drop, foot and toe extension intact). negative: Motor sensory deficit - Psychiatric Psychiatric exam: Normal affect, Normal mood - Skin Skin exam: Dry, Intact, Normal color, Warm Course Vital Signs 03/10/18 16:23 Temperature 97.7 F Pulse Rate 132 H Respiratory 20 Rate Blood Pressure 137/114 Pulse Ox 98 - Reevaluation(s) Reevaluation #1: 03/10/18 17:17 The patient is tolerating the IM shot She has been up to the rest room with much improved speed and comfort. 03/10/18 17:33 UA reviewed. No blood or infection. The patient back pain is under good control and she is ready for DC home. We discussed home care, follow up and reasons to return to the ED Disposition Disposition: Discharge Clinical Impression: Lumbar pain Disposition: Home, Self-Care Condition: (1) Good Instructions: Sciatica (ED) Additional Instructions: Call your doctor for close follow up this week Return or be seen if worse, fever, urinary symptoms, any new concerns. Prescriptions: Cyclobenzaprine HCl [Flexeril] 10 mg PO TID #20 tablet Forms: Patient Portal Access Time of Disposition: 17:37 Quality - Quality Measures Quality Measures: N/A - Blood Pressure Screening Does Patient Have Any of the Following: Active Dx of HTN Blood Pressure Classification: Hypertensive Reading Systolic Measurement: 137 Diastolic Measurement: 114 Screening for High Blood Pressure: Patient Exclusion, Hx of HTN [G9744]
[2018-03-10 17:19] LABS: URINE APPEARANCE CLEAR; URINE BILIRUBIN NEGATIVE (NEGATIVE); URINE BLOOD NEGATIVE (NEGATIVE); URINE COLOR YELLOW; URINE KETONE NEGATIVE (NEGATIVE); URINE LEUKOCYTE ESTERASE NEGATIVE (NEGATIVE); URINE NITRITE NEGATIVE (NEGATIVE); URINE PROTEIN NEGATIVE (NEGATIVE); URINE UROBILINOGEN 0.2 E.U./dL (0.20 - 1.00)
[2018-03-10 17:20] LABS: URINE GLUCOSE (UA) >=1000 mg/dL (NEGATIVE)
== END 2018-03-10 17:58 | disposition home or self-care (01) ==
LOC: ER 16:21
DX: M54.5 Low back pain (principal); M51.36 Other intervertebral disc degeneration, lumbar region; I10 Essential (primary) hypertension; F17.210 Nicotine dependence, cigarettes, uncomplicated
CPT/HCPCS: 81003; 96372; 99283; J2360

== ENCOUNTER 2018-04-10 07:42 | Emergency (ER) | payer MEDICARE, MEDICAID ==
[2018-04-10] MEDS ORDERED: KETOROLAC 30 MG/ML VIAL IM ONE (08:02)
--- NOTE | 2018-04-10 08:09 | Emergency Department Record ---
History of Present Illness - General Chief Complaint: Back Pain/Injury Stated Complaint: BACK/LEG PAIN Time Seen by Provider: 04/10/18 07:55 Source: Patient Mode of Arrival: Ambulatory Limitations: No limitations - History of Present Illness Initial Comments: The patient is here due to worsening of her chronic low back pain. She has a long hx of similar problems and does have a hx of L4 disc dz. She was scheduled for surgery but has had it canceled twice due to her diabetes being out of control. The patient does have a prior hx of back surgery and of a pain pump in the past. Now for the last 2-3 weeks the pain has been worse. She also fell yesterday after tripping on her dog and landed on her buttocks. Since the pain has been worse. She also does have intermittent radiation of the pain down the L leg. She denies any new bowel or bladder issues but has had a chronic problem with mild bladder control for some time. MD Complaint: Back pain Onset/Timin -: Week(s) Similar Symptoms Previously: Yes Place: Home Radiation: Left leg Severity: Moderate Severity scale (1-10): 8 Quality: Burning, Other Consistency: Constant Improves With: None Worsens With: Walking Context: Fall Associated Symptoms: Denies other symptoms Treatments Prior to Arrival: Prescription analgesics Treatment Prior to Arrival Comment:: Percocet - Related Data Allergies Allergy/AdvReac Type Severity Reaction Status Date / Time No Known Drug Allergies Allergy Verified 04/10/18 07:48 Travel Screening - Travel/Exposure Within Last 30 Days Have you traveled within the last 30 days?: No - Travel/Exposure Within Last Year Have you traveled outside the [place] in the last year?: No - Additonal Travel Details Have you been exposed to anyone with a communicable illness?: No - Travel Symptoms Symptom Screening: None Review of Systems Constitutional: Denies: Chills, Fever Eyes: Denies: Eye discharge ENT: Denies: Congestion Respiratory: Denies: Cough, Dyspnea Past Medical History - SOCIAL HISTORY Smoking Status: Former smoker Alcohol Use: None Drug Use: None - RESPIRATORY Hx Respiratory Disorders: Yes Hx Asthma: Yes Hx COPD: Yes Hx Pulmonary Embolism: Yes Hx Sleep Apnea: Yes - CARDIOVASCULAR Hx Cardio Disorders: Yes Hx Deep Vein Thrombosis: Yes (hx PE/DVT rt leg) Hx Edema: Yes Hx Hypertension: Yes Hx Irregular Heartbeat: Yes (occas tachycardia (SVT)) Hx Palpitations: Yes Hx Vascular Disease: Yes - NEURO Hx Neuro Disorders: Yes Hx Headaches: Yes (intermittent ROSS) Hx Neuropathy: Yes (feet) Hx TIA: Yes (summer 2016) - GI Hx GI Disorders: Yes Hx Abdominal Pain: Yes Hx Nausea/Vomiting: Yes Hx Pancreatitis: Yes - Hx Genitourinary Disorders: No Comment:: had tubal ligation 2003 - ENDOCRINE Hx Endocrine Disorders: Yes Hx Diabetes: Yes Comment:: has addisons disease - MUSCULOSKELETAL Hx Musculoskeletal Disorders: Yes Hx Arthritis: Yes - PSYCH Hx Psych Problems: Yes Hx Anxiety: Yes Hx Depression: Yes - HEMATOLOGY/ONCOLOGY Hx Hematology/Oncology Disorders: Yes Hx Anemia: Yes Hx Clotting Problems: Yes Hx Blood Transfusions: Yes Family Medical History Any Significant Family History?: Yes Hx Cancer: Grandparents Hx Heart Disease: Grandparents Hx HTN: Mother Hx Seizures: Mother Physical Exam - General General Appearance: Alert, Oriented x3, Cooperative, No acute distress - Head Head exam: Atraumatic, Normocephalic, Normal inspection - Eye Eye exam: Normal appearance, PERRL, EOMI - Neck Neck exam: Normal inspection, Full ROM. negative: Tenderness - Respiratory Respiratory exam: Normal lung sounds bilaterally. negative: Respiratory distress - Cardiovascular Cardiovascular Exam: Regular rate, Normal rhythm, Normal heart sounds, Tachycardia - GI/Abdominal GI/Abdominal exam: Soft, Normal bowel sounds. negative: Tenderness - Extremities Extremities exam: Normal inspection, Full ROM, Normal capillary refill, Other ( Pos SLR on the L at 80 degrees.). negative: Tenderness - Back Back exam: Reports: Normal inspection, Vertebral tenderness (L3-5.) - Neurological Neurological exam: Alert, Normal gait, Reflexes normal (The patellar and achilles reflexes are equal bilaterally. The patellar are 2+ and achilles 1+. ) . negative: Abnormal gait, Altered, Motor sensory deficit - Psychiatric Psychiatric exam: negative: Anxious Course Vital Signs 04/10/18 07:52 Temperature 98 F Pulse Rate 120 H Respiratory 20 Rate Blood Pressure 140/96 Pulse Ox 99 - Reevaluation(s) Reevaluation #1: The patient is doing better at this time. Her pain is improved and she is able to get up and walk with very little discomfort and no limping. I did explain that the xrays are WNL's and did recommend F/U with her PCP. 04/10/18 09:22 Disposition Disposition: Discharge Clinical Impression: Lumbar pain Disposition: Home, Self-Care Condition: (2) Stable Instructions: Low Back Strain (ED) Additional Instructions: Please continue your regular medicines for pain and see your family doctor early next week for recheck. Please proceed to the ER for an MRI for any leg weakness, numbness, or any bowel or bladder issues. Forms: Patient Portal Access Time of Disposition: 09:20 Quality - Quality Measures Quality Measures: N/A - Blood Pressure Screening View Details: Yes Does Patient Have Any of the Following: No Blood Pressure Classification: Hypertensive Reading Systolic Measurement: 140 Diastolic Measurement: 96 Screening for High Blood Pressure: < First Hypertensive BP, F/U Documented > [ [id number]] First Hypertensive Follow-up Interventions: Referral to alternative/primary care provider.
--- NOTE | 2018-04-11 06:02 | RADIOLOGY REPORT ---
DATE: 04/10/2018. EXAM: LUMBAR SPINE. HISTORY: BACK PAIN. TECHNIQUE: AP and lateral views of the lumbar spine were performed. FINDINGS: There is mild degenerative change at the L4-5 and L5-S1 levels. No evidence of acute fracture. No spondylolysis or listhesis. IMPRESSION: MILD DEGENERATIVE CHANGE AT THE L4-5 AND L5-S1 LEVELS. JOB NUMBER: [id number] MTDD
== END 2018-04-10 09:32 | disposition home or self-care (01) ==
LOC: ER 07:42
DX: M54.5 Low back pain (principal); M51.36 Other intervertebral disc degeneration, lumbar region; I10 Essential (primary) hypertension; E11.9 Type 2 diabetes mellitus without complications; Z87.891 Personal history of nicotine dependence
CPT/HCPCS: 99283; 96372; 99284; 72100; J1885

== ENCOUNTER 2018-09-09 17:30 | Emergency (ER) | payer MEDICARE, MEDICAID ==
[2018-09-09] MEDS ORDERED: 0.9 % SODIUM CHLORIDE 1,000 ML BAG IV ONE ×2 (17:48→23:03)
--- NOTE | 2018-09-09 17:48 | Emergency Department Record ---
History of Present Illness - General Chief complaint: Hypergylcemia Stated complaint: high blood sugar Time Seen by Provider: 09/09/18 17:32 Source: Patient Mode of Arrival: Ambulatory Limitations: No limitations - History of Present Illness Initial comments: 48 yo female presents with concerns about her blood sugar. She is a diabetic. She has been in DKA several times in the past. Her blood sugar has been 300- 500. She has some sore throat, nausea, poor appetite, vomiting. No fever. No current significant skin infections. Dr Billy is her PCP. She has had significant weight loss in the last 6 months. She was admitted to [facility] in April for multiple medical conditions. MD Complaint: Generalized weakness (Elevated Blood sugar) -: Days(s) Location: Generalized Severity: Moderate Quality: Other Consistency: Constant Improves with: None Worsens with: None Context: Other Associated Symptoms: Denies other symptoms - [place] Coma Scale Eye Response: (4) Open spontaneously Motor Response: (6) Obeys commands Verbal Response: (5) Oriented Nicole Total: 15 - Related Data Home Medications Medication Instructions Recorded Confirmed Last Taken Apixaban [Eliquis] 5 mg PO DAILY 09/09/18 09/09/18 Unknown Previous Rx's Medication Instructions Recorded Nystatin 5 ml PO BID #200 ml 09/09/18 Allergies Allergy/AdvReac Type Severity Reaction Status Date / Time No Known Drug Allergies Allergy Verified 04/10/18 07:48 Review of Systems Constitutional: Reports: Malaise, Weakness. Denies: Chills, Fever Eyes: Denies: Eye discharge, Eye pain, Photophobia, Vision change ENT: Denies: Congestion, Throat pain Respiratory: Denies: Cough, Dyspnea, Hemoptysis, Stridor, Wheezes Cardiovascular: Denies: Chest pain, Dyspnea on exertion, Edema, Palpitations, Syncope Gastrointestinal: Reports: Nausea, Vomiting. Denies: Constipation, Diarrhea Genitourinary: Reports: Frequency. Denies: Dysuria Musculoskeletal: Denies: Arthralgia, Back pain, Myalgia Skin: Reports: Rash (chronic). Denies: Bruising, Change in color Neurological: Denies: Headache Psychiatric: Denies: Anxiety Hematological/Lymphatic: Denies: Easy bleeding, Easy bruising Past Medical History - SOCIAL HISTORY Smoking Status: Former smoker Drug Use: None - RESPIRATORY Hx Respiratory Disorders: Yes Hx Asthma: Yes Hx COPD: Yes Hx Pulmonary Embolism: Yes Hx Sleep Apnea: Yes - CARDIOVASCULAR Hx Cardio Disorders: Yes Hx Deep Vein Thrombosis: Yes (hx PE/DVT rt leg) Hx Edema: Yes Hx Hypertension: Yes Hx Irregular Heartbeat: Yes (occas tachycardia (SVT)) Hx Palpitations: Yes Hx Vascular Disease: Yes - NEURO Hx Neuro Disorders: Yes Hx Headaches: Yes (intermittent ROSS) Hx Neuropathy: Yes (feet) Hx TIA: Yes (summer 2016) - GI Hx GI Disorders: Yes Hx Abdominal Pain: Yes Hx Nausea/Vomiting: Yes Hx Pancreatitis: Yes - Hx Genitourinary Disorders: No Comment:: had tubal ligation 2003 - ENDOCRINE Hx Endocrine Disorders: Yes Hx Diabetes: Yes Comment:: has addisons disease - MUSCULOSKELETAL Hx Musculoskeletal Disorders: Yes Hx Arthritis: Yes - PSYCH Hx Psych Problems: Yes Hx Anxiety: Yes Hx Depression: Yes - HEMATOLOGY/ONCOLOGY Hx Hematology/Oncology Disorders: Yes Hx Anemia: Yes Hx Clotting Problems: Yes Hx Blood Transfusions: Yes Family Medical History Hx Cancer: Grandparents Hx Heart Disease: Grandparents Hx HTN: Mother Hx Seizures: Mother Physical Exam - General General Appearance: Alert, Oriented x3, Cooperative, No acute distress Limitations: No limitations - Head Head exam: Atraumatic, Normal inspection - Eye Eye exam: Normal appearance, PERRL. negative: Conjunctival injection, Scleral icterus - ENT ENT exam: Normal exam, Mucous membranes dry Ear exam: Normal external inspection Nasal Exam: Normal inspection Mouth exam: Other (white patches of possible thrush). negative: Normal external inspection - Neck Neck exam: Normal inspection - Respiratory Respiratory exam: Normal lung sounds bilaterally. negative: Respiratory distress, Rhonchi, Stridor, Wheezes - Cardiovascular Cardiovascular Exam: Regular rate, Tachycardia - GI/Abdominal GI/Abdominal exam: Soft. negative: Distended, Guarding, Tenderness - Rectal Rectal exam: Deferred - exam: Deferred - Extremities Extremities exam: Normal inspection (chronic rash) - Back Back exam: Denies: CVA tenderness (R), CVA tenderness (L) - Neurological Neurological exam: Alert, Oriented X3 - Psychiatric Psychiatric exam: Normal affect, Normal mood - Skin Skin exam: Dry, Intact, Normal color, Warm Course - Reevaluation(s) Reevaluation #1: EKG #1: 17:52 Rate: 127 Rhythm: sinus tachycardia [place]: L Intervals: normal ST segments: NSR st changes LVH Prior: 09/09/18 18:10 09/09/18 18:20 POC Glucose was 412 09/09/18 18:53 The CBC was reviewed. No acute changes The CMP was reviewed. The HCO3 was normal at 24. The AG is 17 The Acetones are negative The pH is normal at 7.42 The K is low at 3.0 09/09/18 19:37 The case was signed out to Dr Maradiaga for addition hydration, electrolyte replacement, and recheck labs See her documentation for further details Medical Decision Making - Lab Data Result diagrams: 09/09/18 18:05 09/09/18 18:05 Disposition Disposition: Discharge Clinical Impression: Hyperglycemia, Hypokalemia Disposition: Home, Self-Care Condition: (2) Stable Instructions: Oral Candidiasis (ED), Hypokalemia (ED), Diabetic Hyperglycemia (ED) Additional Instructions: Call your doctor for the next available follow up appointment Review this ER visit and the tests performed with your family doctor Return to the ER for a recheck if worse, any new concerns or questions Take the prescriptions provided as directed Prescriptions: Nystatin 5 ml PO BID #200 ml Forms: Patient Portal Access Quality - Quality Measures Quality Measures: N/A - Blood Pressure Screening Does Patient Have Any of the Following: Active Dx of HTN Blood Pressure Classification: Hypertensive Reading Systolic Measurement: 134 Diastolic Measurement: 105 Screening for High Blood Pressure: Patient Exclusion, Hx of HTN [G9744]
[2018-09-09 18:12] LABS: BASO % 0.7 % (0-6); EOS % 2.4 % (0-6); GRAN % 63.2 % (47-80); HEMATOCRIT 45.7 % (35.0-47.0); HEMOGLOBIN 15.8 gm/dl (11.6-16.0); LYMPH % 22.9 % (16-45); MEAN CELL VOLUME 79.8 fl (81-97); MEAN CORPUSCULAR HGB CONC 34.6 g/dl (32-36); MEAN PLATELET VOLUME 10.1 fl (7.4-10.4); MONO % 10.8 % (0-9); PLATELET COUNT 221 K/uL (130-400); RED BLOOD COUNT 5.73 M/uL (3.80-5.40); RED CELL DISTRIBUTION WIDTH 12.8 % (11.5-14.5); WHITE BLOOD COUNT W/O DIFF 5.9 K/uL (4.2-12.2)
[2018-09-09 18:14] LABS: MEAN CORPUSCULAR HEMOGLOBIN 27.5 pg (27-33)
[2018-09-09 18:29] LABS: BLOOD UREA NITROGEN 9 mg/dL (6-20); CREATININE 0.6 mg/dL (0.5-0.9); EST GLOMERULAR FILTRATION RATE > 60 mL/min
[2018-09-09 18:30] LABS: TOTAL PROTEIN 7.7 g/dL (6.6-8.7)
[2018-09-09 18:32] LABS: GLUCOSE,RANDOM 421 mg/dL (74-109)
[2018-09-09 18:33] LABS: ACETONE,SERUM NEGATIVE (NEGATIVE)
[2018-09-09 18:35] LABS: ALBUMIN 3.9 g/dL (4.0-5.0); ALKALINE PHOSPHATASE 149 U/L (35-104); ALT/SGPT 54 U/L (<33); AST/SGOT 33 U/L (10.0-35.0)
[2018-09-09] MEDS ORDERED: SOD CHLOR 0.9% WITH KCL 40MEQ 40 MEQ/1,000 ML IV.SOLN IV ONE (18:51)
[2018-09-09] MEDS ORDERED: POTASSIUM CHLORIDE 20 MEQ TABLET PO ONE (18:53)
[2018-09-09] MEDS ORDERED: POTASSIUM BICARB./CIT AC 25 MEQ EFF.TAB PO STA (19:04)
[2018-09-09] MEDS ORDERED: HUMULIN R 100 UNIT/ML VIAL SQ ONE (19:33)
[2018-09-09 19:59] LABS: URINE APPEARANCE CLEAR; URINE BILIRUBIN NEGATIVE (NEGATIVE); URINE BLOOD NEGATIVE (NEGATIVE); URINE COLOR YELLOW; URINE KETONE 15 mg/dL (NEGATIVE); URINE LEUKOCYTE ESTERASE NEGATIVE (NEGATIVE); URINE NITRITE NEGATIVE (NEGATIVE); URINE PROTEIN NEGATIVE (NEGATIVE); URINE UROBILINOGEN 0.2 E.U./dL (0.20 - 1.00)
[2018-09-09 20:02] LABS: URINE GLUCOSE (UA) >=1000 mg/dL (NEGATIVE)
[2018-09-09 22:55] LABS: BLOOD UREA NITROGEN 9 mg/dL (6-20); CREATININE 0.3 mg/dL (0.5-0.9); EST GLOMERULAR FILTRATION RATE > 60 mL/min
[2018-09-09 22:58] LABS: GLUCOSE,RANDOM 258 mg/dL (74-109)
--- NOTE | 2018-09-09 23:27 | Emergency Department Record ---
History of Present Illness - General Chief complaint: Hypergylcemia Stated complaint: high blood sugar Time Seen by Provider: 09/09/18 17:32 Source: Patient Mode of Arrival: Ambulatory Limitations: No limitations - History of Present Illness MD Complaint: Generalized weakness (Elevated Blood sugar) Onset/Timin -: Days(s) Location: Generalized Severity: Moderate Quality: Other Consistency: Constant Improves with: None Worsens with: None Context: Other Associated Symptoms: Denies other symptoms - [place] Coma Scale Eye Response: (4) Open spontaneously Motor Response: (6) Obeys commands Verbal Response: (5) Oriented [place] Total: 15 - Related Data Home Medications Medication Instructions Recorded Confirmed Last Taken Apixaban [Eliquis] 5 mg PO DAILY 09/09/18 09/09/18 Unknown Previous Rx's Medication Instructions Recorded Nystatin 5 ml PO BID #200 ml 09/09/18 Allergies Allergy/AdvReac Type Severity Reaction Status Date / Time No Known Drug Allergies Allergy Verified 04/10/18 07:48 Travel Screening - Travel/Exposure Within Last 30 Days Have you traveled within the last 30 days?: No Review of Systems Constitutional: Reports: Malaise, Weakness. Denies: Chills, Fever Eyes: Denies: Eye discharge, Eye pain, Photophobia, Vision change ENT: Denies: Congestion, Throat pain Respiratory: Denies: Cough, Dyspnea, Hemoptysis, Stridor, Wheezes Cardiovascular: Denies: Chest pain, Dyspnea on exertion, Edema, Palpitations, Syncope Gastrointestinal: Reports: Nausea, Vomiting. Denies: Constipation, Diarrhea Genitourinary: Reports: Frequency. Denies: Dysuria Musculoskeletal: Denies: Arthralgia, Back pain, Myalgia Skin: Reports: Rash (chronic). Denies: Bruising, Change in color Neurological: Denies: Headache Psychiatric: Denies: Anxiety Hematological/Lymphatic: Denies: Easy bleeding, Easy bruising Past Medical History - SOCIAL HISTORY Smoking Status: Former smoker Drug Use: None - RESPIRATORY Hx Respiratory Disorders: Yes Hx Asthma: Yes Hx COPD: Yes Hx Pulmonary Embolism: Yes Hx Sleep Apnea: Yes - CARDIOVASCULAR Hx Cardio Disorders: Yes Hx Deep Vein Thrombosis: Yes (hx PE/DVT rt leg) Hx Edema: Yes Hx Hypertension: Yes Hx Irregular Heartbeat: Yes (occas tachycardia (SVT)) Hx Palpitations: Yes Hx Vascular Disease: Yes - NEURO Hx Neuro Disorders: Yes Hx Headaches: Yes (intermittent ROSS) Hx Neuropathy: Yes (feet) Hx TIA: Yes (summer 2016) - GI Hx GI Disorders: Yes Hx Abdominal Pain: Yes Hx Nausea/Vomiting: Yes Hx Pancreatitis: Yes - Hx Genitourinary Disorders: No Comment:: had tubal ligation 2003 - ENDOCRINE Hx Endocrine Disorders: Yes Hx Diabetes: Yes Comment:: has addisons disease - MUSCULOSKELETAL Hx Musculoskeletal Disorders: Yes Hx Arthritis: Yes - PSYCH Hx Psych Problems: Yes Hx Anxiety: Yes Hx Depression: Yes - HEMATOLOGY/ONCOLOGY Hx Hematology/Oncology Disorders: Yes Hx Anemia: Yes Hx Clotting Problems: Yes Hx Blood Transfusions: Yes Family Medical History Hx Cancer: Grandparents Hx Heart Disease: Grandparents Hx HTN: Mother Hx Seizures: Mother Physical Exam - General Limitations: No limitations Course Vital Signs 09/09/18 09/09/18 09/09/18 17:39 19:04 20:31 Temperature 98.8 F Pulse Rate 143 H Pulse Rate [ 124 H 123 H Pulse Ox Probe] Respiratory 20 18 20 Rate Blood Pressure 134/105 Blood Pressure 126/57 121/86 [Right Arm] Pulse Ox 98 97 95 09/09/18 09/09/18 21:20 22:59 Temperature Pulse Rate Pulse Rate [ 124 H 124 H Pulse Ox Probe] Respiratory 20 Rate Blood Pressure Blood Pressure 115/83 123/85 [Right Arm] Pulse Ox 95 - Reevaluation(s) Reevaluation #1: 09/09/18 23:25 pt doing better Reevaluation #2: 09/09/18 23:26 pt did well her entire stay Medical Decision Making - Lab Data Result diagrams: 09/09/18 18:05 09/09/18 22:38 Lab Results 09/09/18 09/09/18 09/09/18 Range/Units 17:45 18:05 18:05 WBC 5.9 (4.2-12.2) K/uL RBC 5.73 H (3.80-5.40) M/uL Hgb 15.8 (11.6-16.0) gm/dl Hct 45.7 (35.0-47.0) % MCV 79.8 L (81-97) fl MCH 27.5 (27-33) pg MCHC 34.6 (32-36) g/dl RDW 12.8 (11.5-14.5) % Plt Count 221 (130-400) K/uL MPV 10.1 (7.4-10.4) fl Gran % 63.2 (47-80) % Lymphocytes % 22.9 (16-45) % Monocytes % 10.8 H (0-9) % Eosinophils % 2.4 (0-6) % Basophils % 0.7 (0-6) % Absolute Neutrophils 3.70 VBG pH 7.42 (7.33-7.43) Sodium 134 L (136-145) mmol/L Potassium 3.0 L (3.4-4.5) mmol/L Chloride 93 L (98-107) mmol/L Carbon Dioxide 24.0 (22-29) mmol/L Anion Gap 17.0 H (7-16) BUN 9 (6-20) mg/dL Creatinine 0.6 (0.5-0.9) mg/dL Estimated GFR > 60 mL/min POC Glucose 412 H (70-110) mg/dL Random Glucose 421 H (74-109) mg/dL Calcium 10.2 H (8.6-10.0) mg/dL Magnesium 1.6 (1.6-2.6) mg/dL Total Bilirubin 0.70 (0.2-1.0) mg/dL AST 33 (10.0-35.0) U/L ALT 54 H (<33) U/L Alkaline Phosphatase 149 H (35-104) U/L Total Protein 7.7 (6.6-8.7) g/dL Albumin 3.9 L (4.0-5.0) g/dL Globulin 3.8 (1.4-4.8) gm/dL Albumin/Globulin Ratio 1.0 L (1.1-1.8) Urine Color Urine Appearance Urine pH (5.0-8.0) Ur Specific [place] (1.002-1.030) Urine Protein (NEGATIVE) Urine Glucose (UA) (NEGATIVE) Urine Ketones (NEGATIVE) Urine Blood (NEGATIVE) Urine Nitrite (NEGATIVE) Urine Bilirubin (NEGATIVE) Urine Urobilinogen (0.20 - 1.00) E.U./dL Ur Leukocyte Esterase (NEGATIVE) Acetone, Qual Negative (NEGATIVE) 09/09/18 09/09/18 09/09/18 Range/Units 19:45 21:12 22:38 WBC (4.2-12.2) K/uL RBC (3.80-5.40) M/uL Hgb (11.6-16.0) gm/dl Hct (35.0-47.0) % MCV (81-97) fl MCH (27-33) pg MCHC (32-36) g/dl RDW (11.5-14.5) % Plt Count (130-400) K/uL MPV (7.4-10.4) fl Gran % (47-80) % Lymphocytes % (16-45) % Monocytes % (0-9) % Eosinophils % (0-6) % Basophils % (0-6) % Absolute Neutrophils VBG pH (7.33-7.43) Sodium 140 (136-145) mmol/L Potassium 3.5 (3.4-4.5) mmol/L Chloride 102 (98-107) mmol/L Carbon Dioxide 24.0 (22-29) mmol/L Anion Gap 14.0 (7-16) BUN 9 (6-20) mg/dL Creatinine 0.3 L (0.5-0.9) mg/dL Estimated GFR > 60 mL/min POC Glucose 270 H (70-110) mg/dL Random Glucose 258 H (74-109) mg/dL Calcium 9.6 (8.6-10.0) mg/dL Magnesium (1.6-2.6) mg/dL Total Bilirubin (0.2-1.0) mg/dL AST (10.0-35.0) U/L ALT (<33) U/L Alkaline Phosphatase (35-104) U/L Total Protein (6.6-8.7) g/dL Albumin (4.0-5.0) g/dL Globulin (1.4-4.8) gm/dL Albumin/Globulin Ratio (1.1-1.8) Urine Color Yellow Urine Appearance Clear Urine pH 6.0 (5.0-8.0) Ur Specific [place] <= 1.005 (1.002-1.030) Urine Protein Negative (NEGATIVE) Urine Glucose (UA) >=1000 mg/dl H (NEGATIVE) Urine Ketones 15 mg/dl H (NEGATIVE) Urine Blood Negative (NEGATIVE) Urine Nitrite Negative (NEGATIVE) Urine Bilirubin Negative (NEGATIVE) Urine Urobilinogen 0.2 (0.20 - 1.00) E.U./dL Ur Leukocyte Esterase Negative (NEGATIVE) Acetone, Qual (NEGATIVE) Disposition Disposition: Discharge Clinical Impression: Hyperglycemia, Hypokalemia Disposition: Home, Self-Care Condition: (2) Stable Instructions: Oral Candidiasis (ED), Hypokalemia (ED), Diabetic Hyperglycemia (ED) Additional Instructions: Call your doctor for the next available follow up appointment Review this ER visit and the tests performed with your family doctor Return to the ER for a recheck if worse, any new concerns or questions Take the prescriptions provided as directed Prescriptions: Nystatin 5 ml PO BID #200 ml Forms: Patient Portal Access Quality - Quality Measures Quality Measures: N/A - Blood Pressure Screening Does Patient Have Any of the Following: No Blood Pressure Classification: Hypertensive Reading Systolic Measurement: 134 Diastolic Measurement: 105 Screening for High Blood Pressure: < Pre-Hypertensive BP, F/U Documented > [G8950] Pre-Hypertensive Follow-up Interventions: Follow-up with rescreen every year.
== END 2018-09-09 23:39 | disposition home or self-care (01) ==
LOC: ER 17:30
DX: E87.6 Hypokalemia (principal); E11.65 Type 2 diabetes mellitus with hyperglycemia; B37.0 Candidal stomatitis; R53.1 Weakness; R63.4 Abnormal weight loss; R11.2 Nausea with vomiting, unspecified; I10 Essential (primary) hypertension; J44.9 Chronic obstructive pulmonary disease, unspecified; Z87.891 Personal history of nicotine dependence; Z79.4 Long term (current) use of insulin; Z79.01 Long term (current) use of anticoagulants
CPT/HCPCS: 36416; 80048; 80053; 81003; 82009; 82800; 82948; 83735; 85025; 93005; 93010; 96361; 96365; 96366; 96372; 99284; J7030

== ENCOUNTER 2018-10-13 01:34 | Emergency (ER) | payer MEDICARE, MEDICAID ==
[2018-10-13] MEDS ORDERED: 0.9 % SODIUM CHLORIDE 1,000 ML BAG IV ONE ×2 (01:36→03:20)
[2018-10-13 02:00] LABS: URINE APPEARANCE CLEAR; URINE BILIRUBIN NEGATIVE (NEGATIVE); URINE BLOOD NEGATIVE (NEGATIVE); URINE COLOR YELLOW; URINE KETONE NEGATIVE (NEGATIVE); URINE LEUKOCYTE ESTERASE NEGATIVE (NEGATIVE); URINE NITRITE NEGATIVE (NEGATIVE); URINE PROTEIN NEGATIVE (NEGATIVE); URINE UROBILINOGEN 0.2 E.U./dL (0.20 - 1.00)
[2018-10-13 02:08] LABS: ABSOLUTE NEUTROPHIL COUNT 2.86; BASO % 0.4 % (0-6); EOS % 4.5 % (0-6); GRAN % 53.8 % (47-80); HEMATOCRIT 43.2 % (35.0-47.0); HEMOGLOBIN 14.6 gm/dl (11.6-16.0); LYMPH % 32.8 % (16-45); MEAN CELL VOLUME 81.2 fl (81-97); MEAN CORPUSCULAR HEMOGLOBIN 27.4 pg (27-33); MEAN CORPUSCULAR HGB CONC 33.8 g/dl (32-36); MEAN PLATELET VOLUME 11.3 fl (7.4-10.4); MONO % 8.5 % (0-9); PLATELET COUNT 186 K/uL (130-400); RED BLOOD COUNT 5.32 M/uL (3.80-5.40); RED CELL DISTRIBUTION WIDTH 12.9 % (11.5-14.5); WHITE BLOOD COUNT W/O DIFF 5.3 K/uL (4.2-12.2)
[2018-10-13 02:08] LABS: URINE GLUCOSE (UA) >=1000 mg/dL (NEGATIVE)
--- NOTE | 2018-10-13 02:08 | Emergency Department Record ---
History of Present Illness - General Chief complaint: Hypergylcemia Stated complaint: HIGH BLOOD SUGAR Time Seen by Provider: 10/13/18 01:35 Source: Patient Mode of Arrival: Ambulatory Limitations: No limitations - History of Present Illness Initial comments: 48 yo female presents with concerns about weakness, elevated blood sugars and inflammation of her chronic skin condition. She states her blood sugars this week have been between 300 and 500 but was HIGH tonight. She has had decreased appetite, some nausea and vomiting with diarrhea. She states the last day she did increase her fluids significantly. She had a temperature of 101 on but none since. She states she was seen at [facility] with a glucose of 500 on Saturday. The chronic scab like skin condition that is widely scattered over her body is more painful than usual and erythema. She notice new patches on the left abdomen. Dr Billy is her PCP in [place]. Complaint: Generalized weakness Onset/Timin -: Week(s) Location: Generalized Severity scale (1-10): 7 Quality: Aching Improves with: None Worsens with: None Context: Other Associated Symptoms: Fever/chills, Loss of appetite, Nausea/vomiting, Other (Diarrhea) - [place] Coma Scale Eye Response: (4) Open spontaneously Motor Response: (6) Obeys commands Verbal Response: (5) Oriented [place] Total: 15 - Related Data Previous Rx's Medication Instructions Recorded Nystatin 5 ml PO BID #200 ml 09/09/18 Allergies Allergy/AdvReac Type Severity Reaction Status Date / Time MRI contrast Allergy HIVES Uncoded 10/13/18 01:53 Travel Screening - Travel/Exposure Within Last 30 Days Have you traveled within the last 30 days?: No - Travel Symptoms Symptom Screening: None Review of Systems Constitutional: Reports: As per HPI, Chills, Fever, Malaise, Weakness Eyes: Denies: Eye discharge, Eye pain ENT: Denies: Congestion, Throat pain Respiratory: Denies: Cough, Dyspnea, Hemoptysis, Wheezes Cardiovascular: Denies: Chest pain, Palpitations, Syncope Endocrine: Reports: Fatigue, Polydipsia Gastrointestinal: Reports: Abdominal pain, Diarrhea, Nausea, Vomiting. Denies: Constipation, Hematemesis, Hematochezia, Melena Genitourinary: Denies: Dysuria Musculoskeletal: Reports: Myalgia. Denies: Arthralgia, Back pain Skin: Reports: As per HPI, Change in color, Rash. Denies: Bruising Neurological: Reports: Headache, Weakness. Denies: Confusion, Numbness Psychiatric: Denies: Anxiety Hematological/Lymphatic: Denies: Blood Clots, Easy bleeding, Easy bruising, Swollen glands Past Medical History - SOCIAL HISTORY Smoking Status: Former smoker - RESPIRATORY Hx Respiratory Disorders: Yes Hx Asthma: Yes Hx COPD: Yes Hx Pulmonary Embolism: Yes Hx Sleep Apnea: Yes - CARDIOVASCULAR Hx Cardio Disorders: Yes Hx Deep Vein Thrombosis: Yes (hx PE/DVT rt leg) Hx Edema: Yes Hx Hypertension: Yes Hx Irregular Heartbeat: Yes (occas tachycardia (SVT)) Hx Palpitations: Yes Hx Vascular Disease: Yes - NEURO Hx Neuro Disorders: Yes Hx Headaches: Yes (intermittent ROSS) Hx Neuropathy: Yes (feet) Hx TIA: Yes (summer 2016) - GI Hx GI Disorders: Yes Hx Abdominal Pain: Yes Hx Nausea/Vomiting: Yes Hx Pancreatitis: Yes - Hx Genitourinary Disorders: No Comment:: had tubal ligation 2003 - ENDOCRINE Hx Endocrine Disorders: Yes Hx Diabetes: Yes Comment:: has addisons disease - MUSCULOSKELETAL Hx Musculoskeletal Disorders: Yes Hx Arthritis: Yes - PSYCH Hx Psych Problems: Yes Hx Anxiety: Yes Hx Depression: Yes - HEMATOLOGY/ONCOLOGY Hx Hematology/Oncology Disorders: Yes Hx Anemia: Yes Hx Clotting Problems: Yes Hx Blood Transfusions: Yes Family Medical History Any Significant Family History?: Yes Hx Cancer: Grandparents Hx Heart Disease: Grandparents Hx HTN: Mother Hx Seizures: Mother Physical Exam - General General Appearance: Alert, Oriented x3, Cooperative, No acute distress Limitations: No limitations - Head Head exam: Atraumatic, Normal inspection - Eye Eye exam: Normal appearance, PERRL. negative: Conjunctival injection, Scleral icterus - ENT ENT exam: Normal exam, Mucous membranes dry, Normal orophraynx Ear exam: Normal external inspection Nasal Exam: Normal inspection Mouth exam: Normal external inspection Throat exam: Normal inspection - Neck Neck exam: Normal inspection. negative: Lymphadenopathy, Tenderness - Respiratory Respiratory exam: Normal lung sounds bilaterally. negative: Rhonchi, Stridor, Wheezes - Cardiovascular Cardiovascular Exam: Normal rhythm, Normal heart sounds, Tachycardia. negative: Regular rate Peripheral Pulses: 2+: Radial (R), Radial (L) - GI/Abdominal GI/Abdominal exam: Soft. negative: Tenderness - Rectal Rectal exam: Deferred - exam: Deferred - Extremities Extremities exam: Normal capillary refill, Tenderness, Other (scattered scab like rash widely but diffuse). negative: Normal inspection - Back Back exam: Denies: CVA tenderness (R), CVA tenderness (L) - Neurological Neurological exam: Alert, Oriented X3 - Psychiatric Psychiatric exam: Normal affect, Normal mood. negative: Agitated, Anxious - Skin Skin exam: negative: Cyanosis, Diaphoretic, Erythema, Intact, Mottled Type of lesion: Rash Distribution of rash: Generalized Description of rash: Crusting, Other (scab like with some local surrounding erythema) Course Vital Signs 10/13/18 01:52 Temperature 97.9 F Pulse Rate [ 122 H Left] Respiratory 20 Rate Blood Pressure 137/80 [Left Arm] Pulse Ox 97 - Reevaluation(s) Reevaluation #1: UA negative for infection. Glucose noted. No ketones. 10/13/18 02:11 Venous pH is 7.34 10/13/18 02:15 10/13/18 02:25 Acetone is negative 10/13/18 03:04 The CBC is negative for acute abnormality Na is 129 K is 3.7 HCO3 is 22 AG is 19 Normal renal function with GFR >60 Mg is 1.9 AST is 62 Glucose is pending but presumed elevated. 10/13/18 03:09 The glucose was reported at 909 by the lab 10/13/18 03:10 Osmolarity is not available at [facility] The K is being replace and then anticipate starting insulin drip [facility] contacted for on-call IM for transfer 10/13/18 03:24 Dr Canchola of [facility] accepts the patient for transfer for direct admission He requests 2nd liter bolus then call back He agrees with KCL infusion and starting Insulin drip at 5 units/hour Medical Decision Making - Management Options MDM Management: Additional Work-up Planned (e.g. ADM/Transfer/OP Study) - Data Complexity MDM Data: Labs Ordered and/or Reviewed, Decision to Obtain Old Record, Review and Summary of Old Record Discussed - Lab Data Result diagrams: 10/13/18 01:50 10/13/18 01:50 Critical Care Time Critical Care Time: Yes Total Critical Care Time: 70 Disposition Disposition: Transfer Clinical Impression: Diabetes, Hyperglycemia, Atopic neurodermatitis Disposition: Acute Care Hospital Transfer Transfer To: [facility] Reason For Transfer: Glucose 909 Accepting Physician: Jesika Time Discussed w/Accepting Physician: 03:26 Condition: (2) Stable Forms: Patient Portal Access Time of Disposition: :26 Quality - Quality Measures Quality Measures: N/A - Blood Pressure Screening Does Patient Have Any of the Following: No Blood Pressure Classification: Pre-Hypertensive BP Reading Systolic Measurement: 137 Diastolic Measurement: 80 Screening for High Blood Pressure: < Pre-Hypertensive BP, F/U Documented > [G8950] Pre-Hypertensive Follow-up Interventions: Referral to alternative/primary care provider.
[2018-10-13] MEDS ORDERED: ONDANSETRON HCL IV 4 MG/2 ML VIAL IVP ONE (02:15)
[2018-10-13 02:19] LABS: ACETONE,SERUM NEGATIVE (NEGATIVE)
[2018-10-13 02:45] LABS: ALBUMIN 3.4 g/dL (4.0-5.0); ALKALINE PHOSPHATASE 147 U/L (35-104); ALT/SGPT 38 U/L (<33); AST/SGOT 62 U/L (10.0-35.0); BLOOD UREA NITROGEN 13 mg/dL (6-20); CREATININE 0.7 mg/dL (0.5-0.9); EST GLOMERULAR FILTRATION RATE > 60 mL/min; TOTAL PROTEIN 6.8 g/dL (6.6-8.7)
[2018-10-13] MEDS ORDERED: SOD CHLOR 0.9% WITH KCL 40MEQ 40 MEQ/1,000 ML IV.SOLN IV ONE (02:53)
[2018-10-13] MEDS ORDERED: MORPHINE SULFATE 10MG/1ML **1ML VIAL IVP ONE (03:07)
[2018-10-13 03:08] LABS: GLUCOSE,RANDOM 909 mg/dL (74-109)
[2018-10-13] MEDS ORDERED: INSULIN REGULAR, HUMAN 100 UNIT in 0.9 % SODIUM CHLORIDE 100ML 100 ML IV SCH ×2 (03:15)
== END 2018-10-13 04:50 | disposition short-term general hospital (02) ==
LOC: ER 01:34
DX: E11.65 Type 2 diabetes mellitus with hyperglycemia (principal); Z79.4 Long term (current) use of insulin; L20.81 Atopic neurodermatitis; R53.1 Weakness; R10.9 Unspecified abdominal pain; R11.2 Nausea with vomiting, unspecified; R19.7 Diarrhea, unspecified; J44.9 Chronic obstructive pulmonary disease, unspecified; I10 Essential (primary) hypertension; Z87.891 Personal history of nicotine dependence; Z79.01 Long term (current) use of anticoagulants
CPT/HCPCS: 99285 ×2; 96365; 96375; 96361; 83735; 82800; 85025; 80053; 36416; 82009; 82948; 81003; J2405; J1815; J2270; J7030

== ENCOUNTER 2018-10-28 00:07 | Emergency (ER) | payer MEDICARE, MEDICAID ==
[2018-10-28] MEDS ORDERED: 0.9 % SODIUM CHLORIDE 1,000 ML BAG IV ONE ×2 (00:25)
--- NOTE | 2018-10-28 00:27 | Emergency Department Record ---
History of Present Illness - General Chief complaint: Hypergylcemia Stated complaint: BS HIGH Time Seen by Provider: 10/28/18 00:10 Source: Patient - History of Present Illness Initial comments: The patient states she is a diabetic and was unable to get her sugar down to an adequate level today. Around 1030am her BS was 429. She gave herself 12 units S.Q insulin and ate breakfast. About 2 or 3p her BS was 523. She took another 12 units SQ insulin but did not eat. She ate salad with meat around 6 pm for dinner. Around 9pm her BS showed "high." Instead of continuing to treat at home she decided to come here to get her blood sugar down. Patient was just hospitalized for 10 days in [place] for her diabetes and thyroid nodules. She was released home last 10-21-18. When questioned, she admits to abdominal pain through to her back. Her stool is loose and light in color. - Related Data Previous Rx's Medication Instructions Recorded Nystatin 5 ml PO BID #200 ml 09/09/18 Allergies Allergy/AdvReac Type Severity Reaction Status Date / Time MRI contrast Allergy HIVES Uncoded 10/13/18 01:53 Review of Systems Reviewed: No additional complaints except as noted below Constitutional: Reports: As per HPI. Denies: Chills, Fever, Malaise, Night sweats, Weakness, Weight change Eyes: Reports: As per HPI. Denies: Eye discharge, Eye pain, Photophobia, Vision change ENT: Reports: As per HPI. Denies: Congestion, Dental pain, Ear pain, Epistaxis, Hearing loss, Throat pain Respiratory: Reports: As per HPI. Denies: Cough, Dyspnea, Hemoptysis, Stridor, Wheezes Cardiovascular: Reports: As per HPI. Denies: Arrhythmia, Chest pain, Dyspnea on exertion, Edema, Murmurs, Orthopnea, Palpitations, Paroxysmal nocturnal dyspnea, Rheumatic Fever, Syncope Endocrine: Reports: As per HPI. Denies: Fatigue, Heat or cold intolerance, Polydipsia, Polyuria Gastrointestinal: Reports: As per HPI. Denies: Abdominal pain, Constipation, Diarrhea, Hematemesis, Hematochezia, Melena, Nausea, Vomiting Genitourinary: Reports: As per HPI. Denies: Abnormal menses, Discharge, Dyspareunia, Dysuria, Frequency, Hematuria, Incontinence, Retention, Urgency Musculoskeletal: Reports: As per HPI. Denies: Arthralgia, Back pain, Gout, Joint swelling, Myalgia, Neck pain Skin: Reports: As per HPI. Denies: Bruising, Change in color, Change in ross ir/nails, Lesions, Pruritus, Rash Neurological: Reports: As per HPI. Denies: Abnormal gait, Confusion, Headache, Numbness, Paresthesias, Seizure, Tingling, Tremors, Vertigo, Weakness Psychiatric: Reports: As per HPI. Denies: Anxiety, Auditory hallucinations, Depression, Homicidal thoughts, Suicidal thoughts, Visual hallucinations Hematological/Lymphatic: Reports: As per HPI. Denies: Anemia, Blood Clots, Easy bleeding, Easy bruising, Swollen glands Past Medical History - SOCIAL HISTORY Smoking Status: Former smoker - RESPIRATORY Hx Respiratory Disorders: Yes Hx Asthma: Yes Hx COPD: Yes Hx Pulmonary Embolism: Yes Hx Sleep Apnea: Yes - CARDIOVASCULAR Hx Cardio Disorders: Yes Hx Deep Vein Thrombosis: Yes (hx PE/DVT rt leg) Hx Edema: Yes Hx Hypertension: Yes Hx Irregular Heartbeat: Yes (occas tachycardia (SVT)) Hx Palpitations: Yes Hx Vascular Disease: Yes - NEURO Hx Neuro Disorders: Yes Hx Headaches: Yes (intermittent ROSS) Hx Neuropathy: Yes (feet) Hx TIA: Yes (summer 2016) - GI Hx GI Disorders: Yes Hx Abdominal Pain: Yes Hx Nausea/Vomiting: Yes Hx Pancreatitis: Yes - Hx Genitourinary Disorders: No Comment:: had tubal ligation 2003 - ENDOCRINE Hx Endocrine Disorders: Yes Hx Diabetes: Yes Comment:: has addisons disease - MUSCULOSKELETAL Hx Musculoskeletal Disorders: Yes Hx Arthritis: Yes - PSYCH Hx Psych Problems: Yes Hx Anxiety: Yes Hx Depression: Yes - HEMATOLOGY/ONCOLOGY Hx Hematology/Oncology Disorders: Yes Hx Anemia: Yes Hx Clotting Problems: Yes Hx Blood Transfusions: Yes Family Medical History Any Significant Family History?: Yes Hx Cancer: Grandparents Hx Heart Disease: Grandparents Hx HTN: Mother Hx Seizures: Mother Physical Exam - General General Appearance: Alert, Oriented x3, Cooperative, No acute distress - Head Head exam: Normal inspection - Eye Eye exam: Normal appearance, PERRL Pupils: Normal accommodation - ENT ENT exam: Normal exam, Mucous membranes dry, Normal external ear exam, Normal orophraynx, TM's normal bilaterally Ear exam: Normal external inspection. negative: External canal tenderness Nasal Exam: Normal inspection. negative: Discharge, Sinus tenderness Mouth exam: Normal external inspection, Tongue normal Teeth exam: Normal inspection. negative: Dental caries Throat exam: Normal inspection. negative: Tonsillar erythema, Tonsillar exudate - Neck Neck exam: Normal inspection, Full ROM. negative: Lymphadenopathy, Meningismus, Tenderness - Respiratory Respiratory exam: Normal lung sounds bilaterally. negative: Respiratory distress - Cardiovascular Cardiovascular Exam: Normal rhythm, Normal heart sounds, Tachycardia - GI/Abdominal GI/Abdominal exam: Soft, Normal bowel sounds, Tenderness (tender LUQ on palpation). negative: Rebound, Rigid - Rectal Rectal exam: Deferred - exam: Deferred - Extremities Extremities exam: Normal inspection, Full ROM, Normal capillary refill. negative: Calf tenderness, Pedal edema, Tenderness - Back Back exam: Reports: Normal inspection, Full ROM. Denies: CVA tenderness (R), CVA tenderness (L), Muscle spasm, Rash noted, Tenderness - Neurological Neurological exam: Alert, CN II-XII intact, Normal gait, Oriented X3, Reflexes normal. negative: Motor sensory deficit - Psychiatric Psychiatric exam: Normal affect, Normal mood - Skin Skin exam: Dry, Intact, Normal color, Warm Type of lesion: Other (multiple small dry or scabbed skins sore over ower extremities and forearms which appear chronic without cellulitis) Course - Reevaluation(s) Reevaluation #1: Patient appears comfortable, awaiting IV fluids and results. 0251 repeat BS is 251. Patient is desiring to go home when results returned. 10/28/18 02:51 Reevaluation #2: 10/28/18 03:55 [id number] both liters NS infused. Patient is to be redrawn now. She is feeling better. Reevaluation #3: Repeat labs have greatly improved. Patient is ready for DC home. 10/28/18 04:46 Reevaluation #4: Repeat labs before and after 2 liters NS infused: NA from 128 to 139; K 4.3 to 4.5; CO2 from 19 to 103; Anion gap from 11 to 18; lactate from 5.0 to 1.5; glucose is now 171. pH remained 7.29 10/28/18 04:51 Medical Decision Making - Management Options MDM Management: No Additional Work-up Planned - Data Complexity MDM Data: Labs Ordered and/or Reviewed, X-Ray Ordered and/or Reviewed (CT Abd/Pelvis Iv contrast only: No acute finding per [facility]. ), EKG Ordered and/or Reviewed (Sinus tachycardia @118; LVH, poor R wave progression, no prior available.) - Lab Data Result diagrams: 10/28/18 00:20 10/28/18 04:20 Disposition Disposition: Discharge Clinical Impression: Hyperglycemia due to type 1 diabetes mellitus Disposition: Home, Self-Care Return To Work/School Note Provided: No Condition: (1) Good Instructions: Diabetic Ketoacidosis (ED) Additional Instructions: Continue present medications. Continue to persistently monitor your blood sugars daily and manage insulin dosages. PCP follow up in office as previously instructed. Forms: Patient Portal Access Quality - Quality Measures Quality Measures: N/A - Blood Pressure Screening Does Patient Have Any of the Following: No Blood Pressure Classification: Pre-Hypertensive BP Reading Systolic Measurement: 132 Diastolic Measurement: 77 Screening for High Blood Pressure: < Pre-Hypertensive BP, F/U Documented > [G 8950] Pre-Hypertensive Follow-up Interventions: Follow-up with rescreen every year.
[2018-10-28 00:30] LABS: ABSOLUTE NEUTROPHIL COUNT 3.61; BASO % 0.3 % (0-6); EOS % 2.8 % (0-6); GRAN % 58.9 % (47-80); HEMATOCRIT 40.9 % (35.0-47.0); HEMOGLOBIN 13.9 gm/dl (11.6-16.0); LYMPH % 30.2 % (16-45); MEAN CORPUSCULAR HEMOGLOBIN 27.9 pg (27-33); MEAN PLATELET VOLUME 10.7 fl (7.4-10.4); MONO % 7.8 % (0-9); PLATELET COUNT 207 K/uL (130-400); RED BLOOD COUNT 4.99 M/uL (3.80-5.40); RED CELL DISTRIBUTION WIDTH 13.3 % (11.5-14.5); WHITE BLOOD COUNT W/O DIFF 6.1 K/uL (4.2-12.2)
[2018-10-28 00:38] LABS: ACETONE,SERUM NEGATIVE (NEGATIVE)
[2018-10-28 00:39] LABS: BLOOD UREA NITROGEN 20 mg/dL (6-20); CREATININE 0.8 mg/dL (0.5-0.9); EST GLOMERULAR FILTRATION RATE > 60 mL/min
[2018-10-28 00:40] LABS: TOTAL PROTEIN 6.6 g/dL (6.6-8.7)
[2018-10-28 00:44] LABS: ALT/SGPT 31 U/L (<33)
[2018-10-28 00:45] LABS: ALB/GLOB RATIO 1.1 (1.1-1.8); ALBUMIN 3.5 g/dL (4.0-5.0); ALKALINE PHOSPHATASE 136 U/L (35-104); AST/SGOT 18 U/L (10.0-35.0)
[2018-10-28 00:50] LABS: LIPASE 23 U/L (13-60)
[2018-10-28] MEDS ORDERED: HUMULIN R 100 UNIT/ML VIAL IV ONE (01:08)
[2018-10-28] MEDS ORDERED: HYOSCYAMINE SULFATE ODT 0.125 MG TAB.SUBL SL ONE (01:15)
[2018-10-28 01:46] LABS: GLUCOSE,RANDOM 766 mg/dL (74-109)
[2018-10-28 04:19] LABS: URINE APPEARANCE CLEAR; URINE BILIRUBIN NEGATIVE (NEGATIVE); URINE BLOOD NEGATIVE (NEGATIVE); URINE COLOR YELLOW; URINE KETONE NEGATIVE (NEGATIVE); URINE LEUKOCYTE ESTERASE NEGATIVE (NEGATIVE); URINE NITRITE NEGATIVE (NEGATIVE); URINE PROTEIN NEGATIVE (NEGATIVE); URINE UROBILINOGEN 0.2 E.U./dL (0.20 - 1.00)
[2018-10-28 04:25] LABS: URINE GLUCOSE (UA) >=1000 mg/dL (NEGATIVE)
[2018-10-28 04:28] LABS: BLOOD UREA NITROGEN 16 mg/dL (6-20)
[2018-10-28 04:29] LABS: CREATININE 0.4 mg/dL (0.5-0.9); EST GLOMERULAR FILTRATION RATE > 60 mL/min
[2018-10-28 04:31] LABS: GLUCOSE,RANDOM 171 mg/dL (74-109)
--- NOTE | 2018-10-29 08:03 | RADIOLOGY REPORT ---
EXAM: CHEST, TWO VIEWS HISTORY: ELEVATED SERUM GLUCOSE. TECHNIQUE: Upright PA and lateral views of the chest were obtained. Comparison: Portable chest dated 07/25/17. FINDINGS: There has been interval removal of the right upper extremity PICC. Moderate elevation of the right hemidiaphragm is redemonstrated with probable mild compressive atelectasis of the right lung base. The lungs and pleural spaces are otherwise clear. The heart is not enlarged and the pulmonary vasculature is nondilated. An IVC filter is in place. Surgical clips project at the level of the right upper quadrant consistent with post cholecystectomy change. IMPRESSION: 1. MODERATE ELEVATION OF THE RIGHT HEMIDIAPHRAGM REDEMONSTRATED ASSOCIATED WITH MINOR COMPRESSIVE ATELECTASIS OF THE RIGHT LUNG BASE. NO CONVINCING RADIOGRAPHIC EVIDENCE OF ACUTE CARDIOPULMONARY DISEASE. 2. POST SURGICAL CHANGES IN THE RIGHT UPPER QUADRANT OF THE ABDOMEN. IVC FILTER IN PLACE. JOB NUMBER: [id number] MTDD
--- NOTE | 2018-10-29 08:29 | CT SCAN REPORT ---
EXAM: CT OF THE ABDOMEN AND PELVIS WITH CONTRAST HISTORY: LEFT ABDOMINAL PAIN FOR SEVERAL WEEKS, WORSENING TONIGHT. PANCREATIC ABSCESS HISTORY. MULTIPLE PRIOR BACK SURGERIES. TECHNIQUE: Contrast enhanced helical CT examination of the abdomen and pelvis was performed including delayed images through the kidneys with 100 ml of Omnipaque 300 utilized. Comparison: CT of the abdomen and pelvis without contrast dated 10/27/17. FINDINGS: Moderate elevation of the right hemidiaphragm is redemonstrated associated with minor compressive atelectasis at the right lung base. The lung bases are otherwise clear. No pleural or pericardial effusion. There is mild decreased density of the liver relative to the spleen consistent with mild steatosis. No suspicious focal hepatic lesion. No focal abnormality within the pancreas, spleen, adrenal glands, nor left kidney. A too small to characterize hypodense lesion is noted within the lateral cortex of the mid right kidney. This is nonspecific, but likely a cyst. Surgical clips are suggested along the posterior margin of the mid to lower right kidney and along the lateral margin of the ascending colon. The gallbladder is surgically absent. No gross intrahepatic biliary ductal dilatation. No intraabdominal nor retroperitoneal lymphadenopathy. The vasculature is normal in caliber. An IVC filter is in place with its superior tip at the level of the renal veins. No pelvic mass, lymphadenopathy, or free pelvic fluid. A surgical clip is noted in the left hemipelvis adjacent to the urinary bladder dome. No intrinsic urinary bladder abnormality is seen though evaluation is limited by lack of distention. No gross bowel dilatation nor bowel wall thickening. Surgical clips are noted in the region of the cecal tip. The appendix is not visualized. It has been surgically resected. No free intraperitoneal fluid. No free intraperitoneal air. No lytic or blastic bone lesion. There are mild degenerative changes scattered throughout the visualized spine. IMPRESSION: 1. NO CT EVIDENCE OF AN ACUTE INTRAABDOMINAL NOR INTRAPELVIC PROCESS. EXTENSIVE POST SURGICAL CHANGES WITHIN THE RIGHT ABDOMEN. 2. MODERATE ELEVATION OF THE RIGHT HEMIDIAPHRAGM WITH ASSOCIATED MILD COMPRESSIVE ATELECTASIS OF THE RIGHT LUNG BASE. 3. MILD HEPATIC STEATOSIS QUESTIONED. 4. IVC FILTER IN PLACE. 5. TOO SMALL TO CHARACTERIZE HYPODENSE LESION WITHIN THE RIGHT KIDNEY IS NONSPECIFIC, BUT LIKELY A CYST. JOB NUMBER: [id number] [facility]
== END 2018-10-28 05:16 | disposition home or self-care (01) ==
LOC: ER 00:07
DX: E10.65 Type 1 diabetes mellitus with hyperglycemia (principal); Z79.4 Long term (current) use of insulin; Z87.891 Personal history of nicotine dependence; R10.12 Left upper quadrant pain; J44.9 Chronic obstructive pulmonary disease, unspecified; I10 Essential (primary) hypertension; Z79.01 Long term (current) use of anticoagulants
CPT/HCPCS: 99284 ×2; 96374; 83605; 82800; 83690; 85025; 80048; 80053; 36416; 82009; 82948; 81003; 84484; 71046; 74177; 93005; 93010; Q9967; J1980

== ENCOUNTER 2019-01-09 15:00 | Emergency (ER) | payer MEDICARE, MEDICAID ==
[2019-01-09] MEDS ORDERED: 0.9 % SODIUM CHLORIDE 1,000 ML BAG IV ONE (15:11)
--- NOTE | 2019-01-09 15:19 | Emergency Department Record ---
History of Present Illness - General Chief complaint: Hypergylcemia Stated complaint: HIGH BLOOD SUGAR Time Seen by Provider: 01/09/19 15:03 Source: Patient Mode of Arrival: Ambulatory Limitations: No limitations - History of Present Illness Initial comments: 48 yo female presents with concerns about her elevated glucose. She chronically has poor control of her blood sugar. She states her normal reading is "Hi". Her best glucose in the last month was about 250. Today she has been running in the 400-500 range. She is urinating a lot and has some blurriness to the vision. No fever. No vomiting. She last saw her sleeve maker in November with some changes to her medications. She had her thyroid removed in October without complications. PCP is Dr Billy. Complaint: Generalized weakness Onset/Timin -: Week(s) Location: Generalized Severity: Mild Quality: Other Consistency: Constant, Other Improves with: None Worsens with: None Associated Symptoms: Denies other symptoms - [place] Coma Scale Eye Response: (4) Open spontaneously Motor Response: (6) Obeys commands Verbal Response: (5) Oriented [place] Total: 15 - Related Data Allergies Allergy/AdvReac Type Severity Reaction Status Date / Time MRI contrast Allergy HIVES Uncoded 10/13/18 01:53 Travel Screening - Travel/Exposure Within Last 30 Days Have you traveled within the last 30 days?: No Review of Systems Constitutional: Denies: Chills, Fever, Malaise, Weakness Eyes: Reports: Vision change. Denies: Eye discharge, Eye pain, Photophobia ENT: Denies: Congestion, Throat pain Respiratory: Denies: Cough, Dyspnea Cardiovascular: Denies: Chest pain, Palpitations, Syncope Endocrine: Reports: Polydipsia, Polyuria. Denies: Fatigue Gastrointestinal: Denies: Abdominal pain, Diarrhea, Nausea, Vomiting Genitourinary: Reports: Frequency. Denies: Dysuria Musculoskeletal: Denies: Arthralgia, Back pain, Neck pain Neurological: Reports: Headache. 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) Hx Edema: Yes Hx Hypertension: Yes Hx Irregular Heartbeat: Yes (occas tachycardia (SVT)) Hx Palpitations: Yes Hx Vascular Disease: Yes - NEURO Hx Neuro Disorders: Yes Hx Headaches: Yes (intermittent ROSS) Hx Neuropathy: Yes (feet) Hx TIA: Yes (summer 2016) - GI Hx GI Disorders: Yes Hx Abdominal Pain: Yes Hx Nausea/Vomiting: Yes Hx Pancreatitis: Yes - Hx Genitourinary Disorders: No Comment:: had tubal ligation 2003 - ENDOCRINE Hx Endocrine Disorders: Yes Hx Diabetes: Yes Comment:: has addisons disease - MUSCULOSKELETAL Hx Musculoskeletal Disorders: Yes Hx Arthritis: Yes - PSYCH Hx Psych Problems: Yes Hx Anxiety: Yes Hx Depression: Yes - HEMATOLOGY/ONCOLOGY Hx Hematology/Oncology Disorders: Yes Hx Anemia: Yes Hx Clotting Problems: Yes Hx Blood Transfusions: Yes Family Medical History Any Significant Family History?: Yes Hx Cancer: Grandparents Hx Heart Disease: Grandparents Hx HTN: Mother Hx Seizures: Mother Physical Exam - General General Appearance: Alert, Oriented x3, Cooperative, No acute distress Limitations: No limitations - Head Head exam: Atraumatic, Normal inspection - Eye Eye exam: Normal appearance, PERRL. negative: Conjunctival injection, Scleral icterus - ENT ENT exam: Normal exam, Mucous membranes moist Ear exam: Normal external inspection Nasal Exam: Normal inspection Mouth exam: Normal external inspection - Neck Neck exam: Normal inspection - Respiratory Respiratory exam: Normal lung sounds bilaterally. negative: Respiratory distress - Cardiovascular Cardiovascular Exam: Normal rhythm, Normal heart sounds, Tachycardia Peripheral Pulses: 2+: Radial (R), Radial (L) - GI/Abdominal GI/Abdominal exam: Soft. negative: Tenderness - Rectal Rectal exam: Deferred - exam: Deferred - Extremities Extremities exam: negative: Normal inspection (chronic scabs, mild, diffuely located) - Back Back exam: Denies: CVA tenderness (R), CVA tenderness (L) - Neurological Neurological exam: Alert, Normal gait, Oriented X3. negative: Altered, Motor sensory deficit - Psychiatric Psychiatric exam: Normal affect, Normal mood - Skin Skin exam: Other Course Vital Signs 01/09/19 15:05 Temperature 98.5 F Pulse Rate 114 H Respiratory 20 Rate Blood Pressure 116/91 Pulse Ox 98 - Reevaluation(s) Reevaluation #1: 01/09/19 15:49 Venous pH is 7.38 Serum Acetone is normal 01/09/19 16:22 The K is 3.7 Normal renal function She will be given potassium supplementation prior to insulin Medical Decision Making - Lab Data Result diagrams: 01/09/19 15:20 01/09/19 15:20 Disposition Disposition: Discharge Clinical Impression: Hyperglycemia Disposition: Home, Self-Care Condition: (2) Stable Instructions: Diabetic Hyperglycemia (ED) Additional Instructions: Review this ER visit and the tests performed with your family doctor Call your doctor for the next available follow up appointment Return to the ER for a recheck if worse, any new concerns or questions Forms: Patient Portal Access Quality - Quality Measures Quality Measures: N/A - Blood Pressure Screening Does Patient Have Any of the Following: Active Dx of HTN Blood Pressure Classification: Hypertensive Reading Systolic Measurement: 146 Diastolic Measurement: 95 Screening for High Blood Pressure: Patient Exclusion, Hx of HTN [G9744]
[2019-01-09 15:40] LABS: ABSOLUTE NEUTROPHIL COUNT 3.84; BASO % 0.5 % (0-6); EOS % 0.8 % (0-6); GRAN % 64.2 % (47-80); HEMATOCRIT 47.3 % (35.0-47.0); HEMOGLOBIN 15.7 gm/dl (11.6-16.0); LYMPH % 28.6 % (16-45); MEAN CELL VOLUME 83.1 fl (81-97); MEAN CORPUSCULAR HGB CONC 33.2 g/dl (32-36); MONO % 5.9 % (0-9); PLATELET COUNT 215 K/uL (130-400); RED BLOOD COUNT 5.69 M/uL (3.80-5.40); RED CELL DISTRIBUTION WIDTH 14.7 % (11.5-14.5)
[2019-01-09 15:41] LABS: MEAN CORPUSCULAR HEMOGLOBIN 27.5 pg (27-33)
[2019-01-09 15:46] LABS: ACETONE,SERUM NEGATIVE (NEGATIVE)
[2019-01-09 15:52] LABS: BLOOD UREA NITROGEN 8 mg/dL (6-20); CREATININE 0.7 mg/dL (0.5-0.9); EST GLOMERULAR FILTRATION RATE > 60 mL/min
[2019-01-09 15:53] LABS: TOTAL PROTEIN 7.5 g/dL (6.6-8.7)
[2019-01-09 15:57] LABS: ALT/SGPT 24 U/L (<33); AST/SGOT 20 U/L (10.0-35.0)
[2019-01-09 15:58] LABS: ALB/GLOB RATIO 1.3 (1.1-1.8); ALBUMIN 4.2 g/dL (4.0-5.0); ALKALINE PHOSPHATASE 126 U/L (35-104)
[2019-01-09 16:11] LABS: GLUCOSE,RANDOM 626 mg/dL (74-109)
[2019-01-09] MEDS ORDERED: POTASSIUM CHLORIDE 20 MEQ TABLET PO ONE (16:21)
[2019-01-09] MEDS ORDERED: SOD CHLOR 0.9% WITH KCL 40MEQ 40 MEQ/1,000 ML IV.SOLN IV ONE (16:21)
[2019-01-09] MEDS ORDERED: HUMULIN 70/30 KWIKPEN 100 UNIT/ML SQ ONE (16:58)
[2019-01-09] MEDS ORDERED: HUMULIN R 100 UNIT/ML VIAL SQ ONE (17:12)
--- NOTE | 2019-01-09 18:49 | Emergency Department Record ---
History of Present Illness - General Chief complaint: Hypergylcemia Stated complaint: HIGH BLOOD SUGAR Time Seen by Provider: 01/09/19 15:03 Source: Patient Mode of Arrival: Ambulatory Limitations: No limitations - History of Present Illness MD Complaint: Generalized weakness Onset/Timin -: Week(s) Location: Generalized Severity: Mild Quality: Other Consistency: Constant, Other Improves with: None Worsens with: None Associated Symptoms: Denies other symptoms - [place] Coma Scale Eye Response: (4) Open spontaneously Motor Response: (6) Obeys commands Verbal Response: (5) Oriented [place] Total: 15 - Related Data Allergies Allergy/AdvReac Type Severity Reaction Status Date / Time MRI contrast Allergy HIVES Uncoded 10/13/18 01:53 Travel Screening - Travel/Exposure Within Last 30 Days Have you traveled within the last 30 days?: No Review of Systems Constitutional: Denies: Chills, Fever, Malaise, Weakness Eyes: Reports: Vision change. Denies: Eye discharge, Eye pain, Photophobia ENT: Denies: Congestion, Throat pain Respiratory: Denies: Cough, Dyspnea Cardiovascular: Denies: Chest pain, Palpitations, Syncope Endocrine: Reports: Polydipsia, Polyuria. Denies: Fatigue Gastrointestinal: Denies: Abdominal pain, Diarrhea, Nausea, Vomiting Genitourinary: Reports: Frequency. Denies: Dysuria Musculoskeletal: Denies: Arthralgia, Back pain, Neck pain Neurological: Reports: Headache. 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) Hx Edema: Yes Hx Hypertension: Yes Hx Irregular Heartbeat: Yes (occas tachycardia (SVT)) Hx Palpitations: Yes Hx Vascular Disease: Yes - NEURO Hx Neuro Disorders: Yes Hx Headaches: Yes (intermittent ROSS) Hx Neuropathy: Yes (feet) Hx TIA: Yes (summer 2016) - GI Hx GI Disorders: Yes Hx Abdominal Pain: Yes Hx Nausea/Vomiting: Yes Hx Pancreatitis: Yes - Hx Genitourinary Disorders: No Comment:: had tubal ligation 2003 - ENDOCRINE Hx Endocrine Disorders: Yes Hx Diabetes: Yes Comment:: has addisons disease - MUSCULOSKELETAL Hx Musculoskeletal Disorders: Yes Hx Arthritis: Yes - PSYCH Hx Psych Problems: Yes Hx Anxiety: Yes Hx Depression: Yes - HEMATOLOGY/ONCOLOGY Hx Hematology/Oncology Disorders: Yes Hx Anemia: Yes Hx Clotting Problems: Yes Hx Blood Transfusions: Yes Family Medical History Any Significant Family History?: Yes Hx Cancer: Grandparents Hx Heart Disease: Grandparents Hx HTN: Mother Hx Seizures: Mother Physical Exam - General Limitations: No limitations Course Vital Signs 01/09/19 01/09/19 15:05 16:56 Temperature 98.5 F Pulse Rate 114 H Pulse Rate [ 86 Starch Mangle Tender ] Respiratory 20 20 Rate Blood Pressure 116/91 Blood Pressure 123/75 [Right Arm] Pulse Ox 98 - Reevaluation(s) Reevaluation #1: 01/09/19 18:48 Repeat Accu check is 345. Patient is resting comfortably and asking to go home at this time. Patient's pulse is 88 on re-examination, patient is resting comfortably and appears stable for discharge at this time. Medical Decision Making - Lab Data Result diagrams: 01/09/19 15:20 01/09/19 15:20 Lab Results 01/09/19 01/09/19 01/09/19 Range/Units 15:05 15:20 15:20 WBC 6.0 (4.2-12.2) K/uL RBC 5.69 H (3.80-5.40) M/uL Hgb 15.7 (11.6-16.0) gm/dl Hct 47.3 H (35.0-47.0) % MCV 83.1 (81-97) fl MCH 27.5 (27-33) pg MCHC 33.2 (32-36) g/dl RDW 14.7 H (11.5-14.5) % Plt Count 215 (130-400) K/uL MPV 10.0 (7.4-10.4) fl Gran % 64.2 (47-80) % Lymphocytes % 28.6 (16-45) % Monocytes % 5.9 (0-9) % Eosinophils % 0.8 (0-6) % Basophils % 0.5 (0-6) % Absolute Neutrophils 3.84 VBG pH 7.38 (7.33-7.43) Sodium 131 L (136-145) mmol/L Potassium 3.7 (3.4-4.5) mmol/L Chloride 89 L (98-107) mmol/L Carbon Dioxide 22.0 (22-29) mmol/L Anion Gap 20.0 H (7-16) BUN 8 (6-20) mg/dL Creatinine 0.7 (0.5-0.9) mg/dL Estimated GFR > 60 mL/min POC Glucose 543 H* (70-110) mg/dL Random Glucose 626 H* (74-109) mg/dL Calcium 8.5 L (8.6-10.0) mg/dL Total Bilirubin 0.70 (0.2-1.0) mg/dL AST 20 (10.0-35.0) U/L ALT 24 (<33) U/L Alkaline Phosphatase 126 H (35-104) U/L Total Protein 7.5 (6.6-8.7) g/dL Albumin 4.2 (4.0-5.0) g/dL Globulin 3.3 (1.4-4.8) gm/dL Albumin/Globulin Ratio 1.3 (1.1-1.8) Acetone, Qual Negative (NEGATIVE) Disposition Disposition: Discharge Clinical Impression: Hyperglycemia Disposition: Home, Self-Care Condition: (2) Stable Instructions: Diabetic Hyperglycemia (ED) Additional Instructions: Review this ER visit and the tests performed with your family doctor Call your doctor for the next available follow up appointment Return to the ER for a recheck if worse, any new concerns or questions Forms: Patient Portal Access Time of Disposition: 18:49 Quality - Quality Measures Quality Measures: N/A - Blood Pressure Screening Does Patient Have Any of the Following: Active Dx of HTN Blood Pressure Classification: Hypertensive Reading Systolic Measurement: 146 Diastolic Measurement: 95 Screening for High Blood Pressure: Patient Exclusion, Hx of HTN [G9744] First Hypertensive Follow-up Interventions: Referral to alternative/primary care provider.
== END 2019-01-09 19:05 | disposition home or self-care (01) ==
LOC: ER 15:00
DX: E11.65 Type 2 diabetes mellitus with hyperglycemia (principal); R51 Headache; H53.8 Other visual disturbances; R53.1 Weakness; J44.9 Chronic obstructive pulmonary disease, unspecified; I10 Essential (primary) hypertension; Z79.4 Long term (current) use of insulin; Z87.891 Personal history of nicotine dependence
CPT/HCPCS: 36416; 80053; 82009; 82800; 82948; 85025; 96365; 96366; 96372; 99284; J7030